=== PATIENT | male | born 1935 | race Caucasian/White ===

== ENCOUNTER 2016-10-24 14:19 | Emergency (ER) | payer MEDICARE, OTHER ==
[~2016-10-24] VITALS: Ht 162.6 cm; Wt 66.8 kg
[2016-10-24 14:20] VITALS: BP 176/103
[2016-10-24] MEDS ORDERED: EZET10TA (14:30)
[2016-10-24] MEDS ORDERED: ZETI10TA30 (14:30)
[2016-10-24] MEDS ORDERED: SIMV20TA2 (14:30)
[2016-10-24] MEDS ORDERED: TRAM50TA2 (14:30)
[2016-10-24] MEDS ORDERED: LOSA100T36 (14:30)
== END 2016-10-24 15:08 | disposition home or self-care (01) ==
LOC: M ED 14:19
DX: G50.1 Atypical facial pain (principal); G89.29 Other chronic pain; K02.9 Dental caries, unspecified; I25.10 Atherosclerotic heart disease of native coronary artery without angina pectoris; I25.2 Old myocardial infarction; I10 Essential (primary) hypertension; Z79.899 Other long term (current) drug therapy; Z88.8 Allergy status to other drugs, medicaments and biological substances

== ENCOUNTER 2019-04-05 10:59 | Inpatient (IN) | payer MEDICARE, OTHER ==
[~2019-04-05] VITALS: Ht 162.6 cm; Wt 65.0 kg
[2019-04-05] VITALS (13 sets, daily range): BP systolic 118–146; BP diastolic 73–82
[~2019-04-05 10:59] MED LIST: EZET10TA21; LOSA100T50 PO; PREG100CA PO; SIMV20TA22; TEGR100T3 PO; TRAM50TA2 PO; ZETI10TA16
[2019-04-05] MEDS ORDERED: ASPIRIN 81 MG CHEW TABLET PO ONE (11:30)
[2019-04-05 11:51] LABS: BASO % 0.3 % (0.0-1.0); EOS # 0.3 10^3/uL (0.0-0.5); EOS % 2.8 % (0.0-3.0); HEMATOCRIT 55.6 % (42.0-52.0); HEMOGLOBIN 18.2 g/dl (13.5-17.5); LYMPH % 18.8 % (24.0-44.0); MEAN CORPUSCULAR HEMOGLOBIN 30.7 pg (27.0-33.0); MEAN CORPUSCULAR HGB CONC 32.7 g/dl (32.0-36.5); MEAN CORPUSCULAR VOLUME 93.9 fl (80.0-96.0); MONO # 0.7 10^3/uL (0.0-0.8); MONO % 6.7 % (0.0-5.0); NEUTROPHILS # 7.5 10^3/uL (1.5-8.5); NEUTROPHILS % 70.7 % (36.0-66.0); PLATELET COUNT, AUTOMATED 268 10^3/uL (150-450); RED BLOOD COUNT 5.92 10^6/uL (4.30-6.10); WHITE BLOOD COUNT 10.6 10^3/uL (4.0-10.0)
[2019-04-05] MEDS ORDERED: NITROGLYCERIN 0.4 MG SUBL TABLET SL PRN (12:00)
[2019-04-05] MEDS ORDERED: niCARdipine IV 40 MG in IV 1 EA IV SCH ×2 (12:00→12:45)
[2019-04-05] MEDS ORDERED: METOPROLOL TART 50 MG TAB PO ONE (12:00)
[2019-04-05] MEDS ORDERED: METOPROLOL 5 MG/5 ML VIAL As Ordered ONE (12:04)
[2019-04-05 12:13] LABS: INR 0.92; PROTHROMBIN TIME 12.1 SECONDS (11.8-14.0)
[2019-04-05 12:14] LABS: PARTIAL THROMBOPLASTIN TIME 28.6 SECONDS (25.0-38.4)
[2019-04-05] MEDS: METOPROLOL 5 MG/5 ML VIAL IV SCH ×3 (12:14→12:27)
[2019-04-05] MEDS ORDERED: NORT10CA2 PO (12:21)
[2019-04-05 12:24] LABS: ALBUMIN 4.3 GM/DL (3.2-5.2); ALT/SGPT 32 U/L (12-78); BILIRUBIN,DIRECT 0.1 MG/DL (0.0-0.2); BILIRUBIN,TOTAL 0.3 MG/DL (0.2-1.0); BLOOD UREA NITROGEN 10 MG/DL (7-18); CARBON DIOXIDE LEVEL 28 MEQ/L (21-32); CHLORIDE LEVEL 99 MEQ/L (98-107); CPK CREATINE PHOSPHOKINASE 67 U/L (39-308); CREATININE FOR GFR 1.33 MG/DL (0.70-1.30); GLOMERULAR FILTRATION RATE 54.8 (>35); GLUCOSE, FASTING 121 MG/DL (70-100); LIPASE 83 U/L (73-393); MB/CK RELATIVE INDEX 2.99 (< OR =4); NT-PRO BNP 74 PG/ML (<450); POTASSIUM SERUM 4.1 MEQ/L (3.5-5.1); SODIUM LEVEL 137 MEQ/L (136-145); TOTAL PROTEIN 9.3 GM/DL (6.4-8.2); TROPONIN I < 0.02 NG/ML (< 0.10)
[2019-04-05] MEDS ORDERED: GI COCKTAIL 50ML BTL(HYOSCYAMINE/MAALOX/LIDOCAINE VISCOUS)(1:3:1) PO ONE (14:45)
[2019-04-05 14:55] LABS: CK-MB VALUE MASS 1.8 NG/ML (<3.6); MB/CK RELATIVE INDEX 2.65 (< OR =4); TROPONIN I 0.09 NG/ML (< 0.10)
[2019-04-05 17:52] LABS: CK-MB VALUE MASS 2.3 NG/ML (<3.6); MB/CK RELATIVE INDEX 3.77 (< OR =4); TROPONIN I 0.11 NG/ML (< 0.10)
[2019-04-05] MEDS ORDERED: ISOVUE-370 76% 100ML VIAL (Q9967) As Ordered ONE (19:03)
[2019-04-05] MEDS ORDERED: traMADol 50 MG TAB PO PRN (19:15)
[2019-04-05] MEDS: PREGABALIN 100 MG CAP (LYRICA) PO SCH (20:31)
[2019-04-05] MEDS: HEPARIN SOD (PORCINE) 5000 UNITS/ML VIAL SC SCH (20:31)
[2019-04-05] MEDS: LOSARTAN 50 MG TAB PO SCH (20:32)
--- NOTE | 2019-04-05 20:35 | REPVR ---
PROCEDURE INFORMATION: Exam: CT Angiography Chest With Contrast Exam date and time: 04/05/2019 7:43 PM Age: 83 years old Clinical indication: Chest pain; Additional info: R/O aortic dissection TECHNIQUE: Imaging protocol: Computed tomographic angiography of the chest with intravenous contrast. 3D rendering: MIP and/or 3D reconstructed images were created by the technologist. Radiation optimization: All CT scans at this facility use at least one of these dose optimization techniques: automated exposure control; mA and/or kV adjustment per patient size (includes targeted exams where dose is matched to clinical indication); or iterative reconstruction. Contrast material: ISOVUE 370; Contrast volume: 75 ml; Contrast route: IV; COMPARISON: CR PORTABLE CHEST X-RAY 04/05/2019 11:34 AM FINDINGS: Pulmonary arteries: There are multiple mediastinal lymph nodes measuring up to 12 mm in the anterior mediastinum adjacent to the main pulmonary artery. Is a most likely postinflammatory although neoplastic etiologies are not absolutely excluded. Aorta: There is fusiform dilatation of the ascending thoracic aorta which measures 3.7 cm. maximally. There is no dissection or saccular component. Lungs: Upper lung zone septal thickening with bilateral subpleural peripheral interstitial infiltrates most pronounced in the left upper lobe, mid and lower lung zones with small foci of honeycombing, findings consistent with interstitial lung disease. Several larger blebs demonstrated in the left lower lobe. Pleural space: Unremarkable. No pneumothorax. No pleural effusion. Heart: There is moderate atherosclerotic calcification of the coronary arteries. Lymph nodes: Unremarkable. No enlarged lymph nodes. Bones/joints: Osteoporosis. Soft tissues: Unremarkable. IMPRESSION: 1. Upper lung zone septal thickening with bilateral subpleural peripheral interstitial infiltrates most pronounced in the left upper lobe, mid and lower lung zones with small foci of honeycombing, findings consistent with interstitial lung disease. 2. There is fusiform dilatation of the ascending thoracic aorta which measures 3.7 cm. maximally. There is no dissection or saccular component. 3. There are multiple mediastinal lymph nodes measuring up to 12 mm in the anterior mediastinum adjacent to the main pulmonary artery. Is a most likely postinflammatory although neoplastic etiologies are not absolutely excluded. Electronically signed by: Dylan Jones On 04/05/2019 20:29:59 PM
[2019-04-05] MEDS ORDERED: NORTRIPTYLINE 10 MG CAP PO SCH (21:00)
[2019-04-05] MEDS ORDERED: NS 1,000 ML IV SCH (21:30)
--- NOTE | 2019-04-05 21:36 | HPEPDOC ---
[facility] Medical History & Physical Date of Admission Apr 05, 2019 Date of Service: Apr 05, 2019 Attending Physician: GRACIE BARGER MD History and Physical CHIEF COMPLAINT: Chest pain HISTORY OF PRESENT ILLNESS: 83-year-old male with past history of hypertension, hyperlipidemia, presents from home with chest pain radiating to his back. He went to [place] and started experiencing sternal/epigastric chest pain, radiation to his back between his shoulder blades, decided to come to the hospital. In the ED, he is found to have significantly elevated blood pressure, unresponsive to his oral medication, started on Cardene drip, with appropriate blood pressure control and improvement in chest pain, upon discontinuation of Cardene drip blood pressure jumped up again with worsening of chest pain, so Cardene drip was continued. Patient is currently comfortable in bed, having minimal chest pain, no associated symptoms. He denies any shortness of breath, nausea, vomiting, palpitations, diarrhea or constipation. 10 point review of system is negative except for above PAST MEDICAL HISTORY: 1. Hypertension. 2. Hyperlipidemia. PAST SURGICAL HISTORY: 1. Cataract surgery. 2. Appendectomy. SOCIAL HISTORY: Never smoker. Denies alcohol. Denies drug use FAMILY HISTORY: No family history of heart disease ALLERGIES: Please see below. HOME MEDICATIONS: Please see below. PHYSICAL EXAMINATION: VITAL SIGNS: Please see below. GENERAL: No distress HEENT: Normocephalic, atraumatic, moist mucous membranes NECK: Supple CARDIOVASCULAR EXAMINATION: S1, S2, no murmurs RESPIRATORY EXAMINATION: Clear to auscultation, no wheezing ABDOMINAL EXAMINATION: Soft, nontender, nondistended, positive bowel sounds EXTREMITIES: Range of motion intact SKIN: No rash NEUROLOGICAL EXAMINATION: Alert and oriented 3, no focal deficits PSYCHIATRIC EXAMINATION: Calm and cooperative LABORATORY DATA: See below. IMAGING: CT and negative for aortic dissection, mediastinal lymphadenopathy noted. MICROBIOLOGY: Please see below. ASSESSMENT: 83-year-old male with past medical history of hypertension, hyperlipidemia, being admitted for hypertensive emergency. PLAN: 1. Hypertensive emergency. BP well-controlled on Cardene drip now, admit to ICU, CTA negative for aortic dissection, continue home losartan. Patient noted to have erythrocytosis, unknown etiology, possible cause of patient's hypertensive emergency, continue IV hydration. DVT prophylaxis: Heparin subcutaneous GI prophylaxis: Protonix Vital Signs Vital Signs Date Time Temp Pulse Resp B/P (MAP) Pulse Ox O2 Delivery O2 Flow Rate FiO2 04/05/19 20:32 146/78 04/05/19 19:50 85 18 96 Room Air 04/05/19 18:15 97.3 Laboratory Data Labs 24H Laboratory Tests 2 04/05/19 11:40: Immature Granulocyte % (Auto) 0.7, Neutrophils (%) (Auto) 70.7H, Lymphocytes (%) (Auto) 18.8L, Monocytes (%) (Auto) 6.7H, Eosinophils (%) (Auto) 2.8, Basophils (%) (Auto) 0.3, Neutrophils # (Auto) 7.5, Lymphocytes # (Auto) 2.0, Monocytes # (Auto) 0.7, Eosinophils # (Auto) 0.3, Basophils # (Auto) 0.0, Nucleated Red Blood Cells % (auto) 0.0, Prothrombin Time 12.1, Prothromb Time International Ratio 0.92, Activated Partial Thromboplast Time 28.6, Anion Gap 10, Glomerular Filtration Rate 54.8, Calcium Level 10.0, Total Bilirubin 0.3, Direct Bilirubin 0.1, Aspartate Amino Transf (AST/SGOT) 30, Alanine Aminotransferase (ALT/SGPT) 32, Alkaline Phosphatase 112, Total Creatine Kinase 67, Creatine Kinase MB 2.0, Creatine Kinase MB Relative Index 2.99, Troponin I < 0.02, DQ-[id number]-Type Natriuretic Peptide 74, Total Protein 9.3H, Albumin 4.3, Albumin/Globulin Ratio 0.86L, Lipase 83, Thyroid Stimulating Hormone (TSH) 1.810 04/05/19 14:09: Total Creatine Kinase 68, Creatine Kinase MB 1.8, Creatine Kinase MB Relative Index 2.65, Troponin I 0.09# 04/05/19 17:06: Total Creatine Kinase 61, Creatine Kinase MB 2.3, Creatine Kinase MB Relative Index 3.77, Troponin I 0.11#H CBC/BMP Laboratory Tests 04/05/19 11:40 Home Medications Scheduled Losartan Potassium (Losartan Potassium) 100 Mg Tab, 100 MG PO DAILY Nortriptyline HCl (Nortriptyline HCl) 10 Mg Capsule, 20 MG PO QHS Pregabalin (Lyrica) 100 Mg Capsule, 100 MG PO TID Scheduled PRN Tramadol HCl (Tramadol HCl) 50 Mg Tab, 50 MG PO Q8H PRN for PAIN Allergies Coded Allergies: gabapentin (Verified Allergy, Unknown, 08/29/18) A-FIB/CHADSVASC A-FIB History Current/History of A-Fib/PAF?: No GRACIE BARGER MD Apr 05, 2019 21:36
[2019-04-05] MEDS: PANTOPRAZOLE 40MG TAB (PROTONIX) PO SCH (22:42)
[2019-04-06] VITALS (12 sets, daily range): BP systolic 131–157; BP diastolic 75–86
[2019-04-06] MEDS: SUCRALFATE 1 GM TAB PO SCH ×2 (02:40→06:41)
[2019-04-06 05:08] LABS: HEMOGLOBIN 16.4 g/dl (13.5-17.5); MEAN CORPUSCULAR HEMOGLOBIN 31.1 pg (27.0-33.0); MEAN CORPUSCULAR HGB CONC 32.8 g/dl (32.0-36.5); MEAN CORPUSCULAR VOLUME 94.9 fl (80.0-96.0); PLATELET COUNT, AUTOMATED 221 10^3/uL (150-450); RED BLOOD COUNT 5.27 10^6/uL (4.30-6.10); WHITE BLOOD COUNT 16.1 10^3/uL (4.0-10.0)
[2019-04-06 05:27] LABS: ALBUMIN 3.3 GM/DL (3.2-5.2); ALT/SGPT 27 U/L (12-78); BILIRUBIN,TOTAL 1.1 MG/DL (0.2-1.0); BLOOD UREA NITROGEN 11 MG/DL (7-18); CALCIUM LEVEL 9.6 MG/DL (8.8-10.2); CARBON DIOXIDE LEVEL 31 MEQ/L (21-32); CHLORIDE LEVEL 100 MEQ/L (98-107); CREATININE FOR GFR 1.22 MG/DL (0.70-1.30); GLOMERULAR FILTRATION RATE > 60.0 (>35); GLUCOSE, FASTING 111 MG/DL (70-100); MAGNESIUM LEVEL 2.3 MG/DL (1.8-2.4); POTASSIUM SERUM 4.2 MEQ/L (3.5-5.1); SODIUM LEVEL 137 MEQ/L (136-145); TOTAL PROTEIN 7.8 GM/DL (6.4-8.2)
[2019-04-06] MEDS ORDERED: PNEUMOCOCCAL VACCINE 0.5ML SYRINGE(90732) PNEUMOVAX 23 IM SCH (06:45)
[2019-04-06] MEDS ORDERED: FLUBLOK(EGG FREE)(QUAD)INFLUENZA VACC 0.5ML SYRINGE (90682)18YRS&OLDER IM SCH (06:45)
--- NOTE | 2019-04-06 08:00 | REP ---
REASON: Chest pain. COMPARISON: 09/03/2014, the latest prior. There is evidence of increased interstitial markings likely secondary to fibrotic changes and accentuated by technique. No acute patchy parenchymal opacities or pleural effusions have developed. The heart is not enlarged and the pleural angles are sharp. The osseous structures are stable and intact. IMPRESSION: Increased interstitial markings likely secondary to chronic changes as described above, however, correlate clinically to rule out the possibility of acute disease superimposed upon chronic changes. Unreviewed
--- NOTE | 2019-04-06 08:30 | ECGEPIP ---
[facility] - ED Test Date: 2019-04-05 Pat Name: SARA CHOW Department: Room: - Gender: Male Factory Process Workers: : 1935 Requested By: Bhanu Patten Order Number: [id number] Reading MD: Bhanu Pugh Measurements Intervals [place] Rate: 95 P: 26 [place]: 172 QRS: -25 QRSD: 98 T: -7 QT: 316 QTc: 398 Interpretive Statements SINUS RHYTHM WITH SINUS ARRHYTHMIA BORDERLINE LEFT AXIS DEVIATION MINIMAL VOLTAGE CRITERIA FOR LVH, CONSIDER NORMAL VARIANT SIMILAR TO 09/03/14 Electronically Signed on 04-06-2019 8:30:13 EST by Bhanu Pugh
--- NOTE | 2019-04-06 08:31 | ECGEPIP ---
[facility] - ED Test Date: 2019-04-05 Pat Name: SARA CHOW Department: Room: - Gender: Male Client Services Representative: gordy : 1935 Requested By: Bhanu Patten Order Number: [id number] Reading MD: Bhanu Pugh Measurements Intervals [place] Rate: 69 P: 18 [place]: 154 QRS: -30 QRSD: 102 T: -11 QT: 400 QTc: 430 Interpretive Statements SINUS RHYTHM BORDERLINE LEFT AXIS DEVIATION MINIMAL VOLTAGE CRITERIA FOR LVH, CONSIDER NORMAL VARIANT SIMILAR TO PRIOR ON SAME DATE Electronically Signed on 04-06-2019 8:31:44 EST by Bhanu Pugh
--- NOTE | 2019-04-06 08:33 | ECGEPIP ---
[facility] - ED Test Date: 2019-04-05 Pat Name: SARA CHOW Department: Room: [place] [address] Gender: Male Activities Assistant: : 1935 Requested By: Bhanu Patten Order Number: [id number] Reading MD: Bhanu Pugh Measurements Intervals [place] Rate: 69 P: 17 [place]: 160 QRS: -32 QRSD: 101 T: -11 QT: 392 QTc: 422 Interpretive Statements SINUS BRADYCARDIA LEFT AXIS DEVIATION MINIMAL VOLTAGE CRITERIA FOR LVH NSTTW ABNORMALITIES SIMILAR TO PRIOR ON SAME DATE Electronically Signed on 04-06-2019 8:33:31 EST by Bhanu Pugh
--- NOTE | 2019-04-06 08:35 | ECGEPIP ---
[facility] - ED Test Date: 2019-04-05 Pat Name: SARA CHOW Department: Room: - Gender: Male Technical Sales Manager: : 1935 Requested By: Bhanu Patten Order Number: [id number] Reading MD: Bhanu Pugh Measurements Intervals [place] Rate: 73 P: 19 [place]: 158 QRS: -31 QRSD: 94 T: -13 QT: 384 QTc: 424 Interpretive Statements SINUS RHYTHM LEFT AXIS DEVIATION PATTERN CONSISTENT WITH PULMONARY DISEASE MINIMAL VOLTAGE CRITERIA FOR LVH, CONSIDER NORMAL VARIANT NSTTW ABNORMALITIES SIMILAR TO PRIOR ON SAME DATE Electronically Signed on 04-06-2019 8:35:52 EST by Bhanu Pugh
[2019-04-06] MEDS: PANTOPRAZOLE 40MG TAB (PROTONIX) PO SCH (08:53)
[2019-04-06] MEDS: HEPARIN SOD (PORCINE) 5000 UNITS/ML VIAL SC SCH (08:53)
[2019-04-06] MEDS: LOSARTAN 50 MG TAB PO SCH (08:53)
[2019-04-06] MEDS: PREGABALIN 100 MG CAP (LYRICA) PO SCH (08:53)
[2019-04-06] MEDS ORDERED: METOPROLOL SUCC *XL* 25MG TAB (TopROL *XL*) PO SCH (09:00)
[2019-04-06] MEDS ORDERED: METO1TAB32 PO ×2 (10:19→19:52)
[2019-04-06] MEDS ORDERED: PNEUMOCOCCAL VACCINE 0.5ML SYRINGE(90732) PNEUMOVAX 23 IM ONE (11:00)
--- NOTE | 2019-04-06 21:22 | DS.PDOC ---
Discharge Summary General Date of Admission Apr 05, 2019 at 19:04 Date of Discharge 04/06/19 Attending Physician: GRACIE BARGER MD Discharge Summary PROCEDURES PERFORMED DURING STAY: [None]. ADMITTING DIAGNOSES: 1. Hypertensive emergency DISCHARGE DIAGNOSES: 1. Hypertensive emergency COMPLICATIONS/CHIEF COMPLAINT: Chronic Facial Pain, Htn,Hld,Hypertensive Emergency. HISTORY OF PRESENT ILLNESS: 66 y.o male w/ PMH of HTN & HLD was admitted for hypertensive emergency. He presented with severely elevated BP and mid- sternal/epigastric pain. He was treated w/ Cardene drip, monitored in the ICU setting along with PPI & Carafate with complete resolution of symptoms. Patient evaluated in the morning, asymptomatic, having minimal epigastric pain with adequate blood pressure control. Cardene drip has been off for >12 hours with appropriate control in BP, SBP ranging from 140-150 as was the intention; did not want tight BP control. He was evaluated by physical therapy, passed home safety eval without difficulty. He is clinically and hemodynamically stable for discharge with outpatient follow up. Patient's family is at bedside, all questions answered, patient is advised to follow up w/ Pulmonary based on his CT findings. HOSPITAL COURSE: As above] DISCHARGE MEDICATIONS: Please see below. ALLERGIES: Please see below. PHYSICAL EXAMINATION: VITAL SIGNS: Please see below. GENERAL: No distress HEENT: Normocephalic, atraumatic, moist mucous membranes NECK: Supple CARDIOVASCULAR EXAMINATION: S1, S2, no murmurs RESPIRATORY EXAMINATION: Clear to auscultation, no wheezing ABDOMINAL EXAMINATION: Soft, nontender, nondistended, positive bowel sounds EXTREMITIES: Range of motion intact SKIN: No rash NEUROLOGICAL EXAMINATION: Alert and oriented 3, no focal deficits PSYCHIATRIC EXAMINATION: Calm and cooperative LABORATORY DATA: Please see below. PROGNOSIS: Fair ACTIVITY: As tolerated DIET: Cardiac DISCHARGE PLAN: Follow up w/ Pulmonary & PCP in 1-2 weeks DISPOSITION: 01 Home, Self-Care. DISCHARGE INSTRUCTIONS: 1. As above DISCHARGE CONDITION: Stable TIME SPENT ON DISCHARGE: Greater than 32 minutes. Vital Signs/I&Os Vital Signs Date Time Temp Pulse Resp B/P (MAP) Pulse Ox O2 Delivery O2 Flow Rate FiO2 04/06/19 10:54 88 149/80 04/06/19 10:45 18 Room Air 04/06/19 08:00 98.7 98 I&O- Last 24 Hours up to 6 AM 12/23/19 05:59 Intake Total 460 ml Output Total 850 ml Balance -390 ml Laboratory Data Labs 24H Laboratory Tests 2 04/06/19 04:28: Nucleated Red Blood Cells % (auto) 0.0, Anion Gap 6L, Glomerular Filtration Rate > 60.0, Calcium Level 9.6, Magnesium Level 2.3, Total Bilirubin 1.1#H, Aspartate Amino Transf (AST/SGOT) 24, Alanine Aminotransferase (ALT/SGPT) 27, Alkaline P hosphatase 92, Total Protein 7.8, Albumin 3.3#, Albumin/Globulin Ratio 0.73L CBC/BMP Laboratory Tests 04/06/19 04:28 Discharge Medications Scheduled Losartan Potassium (Losartan Potassium) 100 Mg Tab, 100 MG PO DAILY, (Reported) Metoprolol Succinate (Metoprolol Succinate) 25 Mg Tab.er.24h, 25 MG PO DAILY, (Reported) Nortriptyline HCl (Nortriptyline HCl) 10 Mg Capsule, 20 MG PO QHS, (Reported) Pregabalin (Lyrica) 100 Mg Capsule, 100 MG PO TID, (Reported) Scheduled PRN Tramadol HCl (Tramadol HCl) 50 Mg Tab, 50 MG PO Q8H PRN for PAIN, (Reported) Allergies Coded Allergies: gabapentin (Verified Allergy, Unknown, 08/29/18) GRACIE BARGER MD Apr 06, 2019 21:22
--- NOTE | 2019-04-07 12:51 | ECHO ---
DATE OF PROCEDURE: 04/06/2019 REFERRING PHYSICIAN: Dr. Jenkins INDICATION: Chest pain. HEIGHT: 163 cm. WEIGHT: 64 kg. DIMENSIONS: IVS 1.1 LV 3.9 LVPW 1.1 LA 3.3 Aorta 3.4 RV 4.1 Mitral E wave velocity 65, A wave 84 E prime septal 3.7 E prime lateral 10.3 FINDINGS This study is of acceptable technical quality. The patient is in sinus rhythm. Left ventricle is normal size and systolic function, estimated EF is around 60-65%, computer calculated EF was 61%, which seems believable. Right ventricle is normal size and systolic function as well. Both atria appear normal. All four cardiac valves were reasonably well seen and appear normal. No pericardial effusion is noted. Inferior vena cava was not visualized. Aortic root is normal. Aortic arch and abdominal aorta were not well seen. Doppler interrogation of aortic valve reveals no stenosis and trace insufficiency. There is no significant mitral valvular disease. Trace tricuspid and pulmonic insufficiency are seen. Calculated pulmonary artery pressure is within normal limits. Mitral inflow pattern and tissue Doppler imaging of mitral annulus reveals grade 1 diastolic dysfunction. CONCLUSIONS: 1. Study is of acceptable technical quality, the patient is in sinus rhythm. 2. Normal LV size and systolic function, grade 1 diastolic dysfunction. 3. No hemodynamically significant valvular disease. 4. Unable to estimate central venous pressure, but likely normal pulmonary artery pressure. COMMENTS: SBE prophylaxis is not recommended. No obvious findings to explain chest pain.
== END 2019-04-06 11:42 | disposition home or self-care (01) | DRG 305 ==
LOC: M ED 10:59 → M ED INP 19:04 → M ICU 20:13
PROVIDERS: ADMIT Internal Medicine; ATTEND Internal Medicine
DX: I16.1 Hypertensive emergency (principal); I10 Essential (primary) hypertension; E78.5 Hyperlipidemia, unspecified; Z98.49 Cataract extraction status, unspecified eye; Z90.49 Acquired absence of other specified parts of digestive tract; Z79.899 Other long term (current) drug therapy; Z88.8 Allergy status to other drugs, medicaments and biological substances

== ENCOUNTER 2019-04-06 17:47 | Inpatient (IN) | payer MEDICARE, OTHER ==
[~2019-04-06] VITALS: Ht 162.6 cm; Wt 67.7 kg
[~2019-04-06 17:47] MED LIST changes: +METO1TAB32 PO; +NORT10CA2 PO
--- NOTE | 2019-04-06 18:39 | REP ---
Clinical: Chest pain. Comparison: 04/05/2019. Findings: Mediastinum and cardiac silhouette stable. There is chronic interstitial changes again noted with superimposed left lower lobe infiltrates. No obvious effusion. No pneumothorax. Skeletal structures stable. Impression: Superimposed left lower lobe infiltrates suspected. Electronically Signed by Gurvinder Velázquez MD 04/06/2019 06:31 P
--- NOTE | 2019-04-06 18:56 | REPVR ---
PROCEDURE INFORMATION: Exam: CT Head Without Contrast Exam date and time: 04/06/2019 6:09 PM Age: 83 years old Clinical indication: Weakness, extremity; Additional info: CVA - nursing interventions must not delay CT TECHNIQUE: Imaging protocol: Computed tomography of the head without contrast. Radiation optimization: All CT scans at this facility use at least one of these dose optimization techniques: automated exposure control; mA and/or kV adjustment per patient size (includes targeted exams where dose is matched to clinical indication); or iterative reconstruction. COMPARISON: MRI-Brain without Contrast 08/06/2014 6:16 PM FINDINGS: Brain: No intracranial mass, focal mass effect or midline shift. No acute intracranial hemorrhage. Multiple decreased attenuation in periventricular/centrum semiovale white matter. No focal effacement of cortical sulci to indicate acute cortical infarct. Ventricles: Prominent ventricles and CSF spaces suggest parenchymal volume loss. Bones/joints: No calvarial fracture or destructive process. Sinuses: Visualized paranasal sinuses are unremarkable. Mastoid air cells: Mastoid air cells are normally aerated. Orbits: Visualized globes and orbits are unremarkable. Soft tissues: No focal extracranial soft tissue swelling. IMPRESSION: 1. No acute intracranial abnormality. 2. Atrophy and chronic microangiopathic change in supratentorial white matter. Electronically signed by: Nikunj Smith On 04/06/2019 18:56:31 PM
[2019-04-06] MEDS ORDERED: ISOVUE-370 76% 100ML VIAL (Q9967) As Ordered ONE (19:06)
--- NOTE | 2019-04-06 19:47 | REPVR ---
PROCEDURE INFORMATION: Exam: CT Angiography Neck With Contrast Exam date and time: 04/06/2019 7:05 PM Age: 83 years old Clinical indication: Other: CVA; Additional info: CVA - right sided wkness TECHNIQUE: Imaging protocol: Computed tomography angiography of the neck with intravenous contrast. 3D rendering: MIP and/or 3D reconstructed images were created by the technologist. Radiation optimization: All CT scans at this facility use at least one of these dose optimization techniques: automated exposure control; mA and/or kV adjustment per patient size (includes targeted exams where dose is matched to clinical indication); or iterative reconstruction. Contrast material: ISOVUE 380; Contrast volume: 100 ml; Contrast route: IV COMPARISON: No relevant prior studies available. FINDINGS: Right common carotid, cervical ICA and proximal ECA demonstrate contrast opacification with no occlusion, flow limiting stenosis, or intimal flap to suggest dissection. No concerning luminal irregularity to suggest vasculitis. Right carotid bulb demonstrates minimal calcified atherosclerotic plaque with no hemodynamic effect Left common carotid, cervical ICA and proximal ECA demonstrate contrast opacification, with no occlusion, flow limiting stenosis, or intimal flap to suggest dissection. No concerning luminal irregularity to suggest vasculitis. Vertebral arteries demonstrate normal course to the level of the skull base and show no occlusion, flow limiting stenosis or dissection. No flow limiting stenosis or anomaly of the great vessel origins. No concerning neck soft tissue asymmetry. Mediastinal lymphadenopathy was described in the chest CT report yesterday as was pulmonary fibrosis. Multi-level cervical degenerative disc and articular pillar arthropathy is present. IMPRESSION: Minimal calcified atherosclerotic plaque of the right carotid bulb. No concerning vascular lesion, stenosis or occlusive disease. CAROTID STENOSIS REFERENCE USING NASCET CRITERIA: % ICA stenosis = (1 - narrowest ICA diameter/diameter of distal cervical ICA) x 100. Mild - <50% stenosis. Moderate - 50-69% stenosis. Severe - 70-94% stenosis. Near occlusion - 95-99% stenosis. Occluded - 100% stenosis. Electronically signed by: Nikunj Smith On 04/06/2019 19:47:11 PM
--- NOTE | 2019-04-06 19:50 | REPVR ---
PROCEDURE INFORMATION: Exam: CT Angiography Head With Contrast Exam date and time: 04/06/2019 7:05 PM Age: 83 years old Clinical indication: Other: CVA; Additional info: CVA - nursing interventions must not delay CT TECHNIQUE: Imaging protocol: Computed tomography angiography of the head with intravenous contrast. 3D rendering: MIP and/or 3D reconstructed images were created by the technologist. Radiation optimization: All CT scans at this facility use at least one of these dose optimization techniques: automated exposure control; mA and/or kV adjustment per patient size (includes targeted exams where dose is matched to clinical indication); or iterative reconstruction. Contrast material: ISOVUE 370; Contrast volume: 100 ml; Contrast route: IV COMPARISON: CT Head without contrast 04/06/2019 6:07 PM FINDINGS: Ventricles, cisterns and sulci are symmetrically prominent. Moderate decreased attenuation in periventricular/centrum semiovale white matter. No intracranial mass or focal mass effect. No intracranial hemorrhage, midline shift or acute territorial infarct. Anterior circulation: Normal contrast opacification and luminal caliber in the petrous, cavernous and supraclinoid internal carotid arteries. Normal appearance of the anterior cerebral artery branches and middle cerebral artery branches through the MCA trifurcations. No occlusion, high-grade focal stenosis or dissection. No aneurysm. Posterior circulation: Mild atherosclerotic plaque distal left vertebral artery with milder than 50% luminal caliber narrowing abnormal enhancement distally. Right vertebral artery distally is patent. Normal caliber, tortuous basilar artery, and normal superior cerebellar and posterior cerebral arteries. No occlusion, high-grade stenosis or aneurysm. Dural sinuses appear patent. Bony structures show no acute fracture or destructive process. IMPRESSION: Unremarkable CT Angiogram of the head and [place] of [place]. No intracranial large vessel lesion Electronically signed by: Nikunj Smith On 04/06/2019 19:49:48 PM
[2019-04-06 19:52] LABS: BASO % 0.2 % (0.0-1.0); EOS # 0.1 10^3/uL (0.0-0.5); EOS % 0.6 % (0.0-3.0); HEMATOCRIT 48.5 % (42.0-52.0); LYMPH # 1.9 10^3/uL (1.5-5.0); LYMPH % 10.6 % (24.0-44.0); MEAN CORPUSCULAR HEMOGLOBIN 31.1 pg (27.0-33.0); MEAN CORPUSCULAR VOLUME 94.2 fl (80.0-96.0); MONO # 1.7 10^3/uL (0.0-0.8); MONO % 9.5 % (0.0-5.0); NEUTROPHILS # 14.1 10^3/uL (1.5-8.5); NEUTROPHILS % 78.4 % (36.0-66.0); PLATELET COUNT, AUTOMATED 215 10^3/uL (150-450); RED BLOOD COUNT 5.15 10^6/uL (4.30-6.10)
[2019-04-06] MEDS ORDERED: METO1TAB32 PO (19:52)
--- NOTE | 2019-04-06 19:52 | REPVR ---
PROCEDURE INFORMATION: Exam: CT Abdomen And Pelvis With Contrast Exam date and time: 04/06/2019 7:05 PM Age: 83 years old Clinical indication: Other: RT side weak; Additional info: CVA - right sided wkness TECHNIQUE: Imaging protocol: Computed tomography of the abdomen and pelvis with intravenous contrast. Radiation optimization: All CT scans at this facility use at least one of these dose optimization techniques: automated exposure control; mA and/or kV adjustment per patient size (includes targeted exams where dose is matched to clinical indication); or iterative reconstruction. Contrast material: ISOVUE 370; Contrast volume: 100 ml; Contrast route: IV; COMPARISON: CT ABD PELVIS W/O CONTRAST 09/01/2014 11:39 AM FINDINGS: Lungs: Particular pulmonary fibrosis at the lung bases, progressive since the prior CT from 2014. No focal infiltrate or mass. Liver: Liver appears normal with no focal abnormality. Gallbladder and bile ducts: Gallbladder is distended. No calcified stone or obvious duct dilatation. Pancreas: Pancreas appears normal. No focal mass or peripancreatic inflammation. Spleen: Spleen appears homogeneous without focal mass. Adrenals: Adrenal glands are normal in appearance. Kidneys and ureters: Kidneys appear normal, with no stone, solid mass or hydronephrosis. Stomach and bowel: No evidence of small bowel obstruction. No evidence of acute diverticulitis. Appendix: Appendix is not seen. No RLQ inflammation to suggest appendicitis. Intraperitoneal space: No pneumoperitoneum. Vasculature: Atherosclerotic change present in the aorta, without aneurysm. Main portal and splenic veins enhance normally. Lymph nodes: No enlarged lymph nodes. Bladder: Urinary bladder appears normal. Reproductive: Dystrophic prostate calcifications are noted. Bones/joints: Bony structures show no acute fracture or destructive process. Soft tissues: Unremarkable. IMPRESSION: 1. Distention of the gallbladder with mild adjacent edema but no stone or duct dilatation. Consider sonography or HIDA scan if there is concern for acute cholecystitis. 2. No other evidence of an acute or concerning focal abnormality Electronically signed by: Nikunj Smith On 04/06/2019 19:52:41 PM
[2019-04-06 20:03] LABS: INR 1.07; PROTHROMBIN TIME 13.6 SECONDS (11.8-14.0)
[2019-04-06 20:04] LABS: PARTIAL THROMBOPLASTIN TIME 34.7 SECONDS (25.0-38.4)
--- NOTE | 2019-04-06 20:10 | ECGEPIP ---
[facility] - ED Test Date: 2019-04-06 Pat Name: SARA CHOW Department: Room: - Gender: Male On Call Pharmacy Technician: : 1935 Requested By: Nic Phelps Order Number: [id number] Reading MD: Bhanu Pugh Measurements Intervals [place] Rate: 80 P: 5 [place]: 150 QRS: -30 QRSD: 92 T: -11 QT: 358 QTc: 415 Interpretive Statements SINUS RHYTHM LEFT AXIS DEVIATION NSTTW ABNORMALITIES SIMILAR TO 04/05/19 Electronically Signed on 04-06-2019 20:09:56 EST by Bhanu Pugh
[2019-04-06] MEDS ORDERED: PIPERACILLIN/TAZOBACTAM SOD 3.375 GM in D5W MINI-BAG PLUS 50 ML IV ONE (20:15)
[2019-04-06 20:20] LABS: ALBUMIN 3.3 GM/DL (3.2-5.2); ALT/SGPT 29 U/L (12-78); BILIRUBIN,DIRECT 0.2 MG/DL (0.0-0.2); BILIRUBIN,TOTAL 1.2 MG/DL (0.2-1.0); CK-MB VALUE MASS < 1.0 NG/ML (<3.6); CPK CREATINE PHOSPHOKINASE 90 U/L (39-308); LIPASE 70 U/L (73-393); MB/CK RELATIVE INDEX 1.11 (< OR =4); TOTAL PROTEIN 7.3 GM/DL (6.4-8.2); TROPONIN I < 0.02 NG/ML (< 0.10)
[2019-04-06 20:35] LABS: BILIRUBIN,DIRECT 0.2 MG/DL (0.0-0.2); BILIRUBIN,TOTAL 1.1 MG/DL (0.2-1.0); TOTAL PROTEIN 6.7 GM/DL (6.4-8.2)
[2019-04-06] MEDS ORDERED: ASPIRIN 81 MG CHEW TABLET PO ONE (21:30)
[2019-04-06] MEDS ORDERED: ACETAMINOPHEN TAB 650MG DOSE (2X325MG) PO PRN (21:30)
--- NOTE | 2019-04-06 21:34 | REPVR ---
PROCEDURE INFORMATION: Exam: US Abdomen Limited, Right Upper Quadrant Exam date and time: 04/06/2019 9:09 PM Age: 83 years old Clinical indication: Pain and abnormal findings; Abnormal radiologic finding of the abdomen; Radiologic exam and body structure: CT abd/pel; Abdominal pain; Acute; Additional info: Ruq pain TECHNIQUE: Imaging protocol: Real-time ultrasound of the abdomen with image documentation. Examination was focused on the right upper quadrant. COMPARISON: CT ABD/PEL W/IV CONTRAST ONLY 04/06/2019 6:55 PM FINDINGS: Pancreas is not visualized but appeared unremarkable on CT.. Liver is homogeneous in echotexture, with no focal lesion. Gallbladder is distended measuring 11.3 x 5.5 by 6.5 cm. Echogenic sludge is present within the gallbladder lumen. Gallbladder wall measures 7 mm. Pericholecystic fluid is present. No shadowing stone. Common bile duct measures 4 mm in diameter. Right kidney measures 11.2 cm in long axis. Right kidney appears normal. No free fluid. IMPRESSION: Distended gallbladder with intraluminal sludge, mild gallbladder wall thickening and pericholecystic edema or fluid. Findings certainly may represent early cholecystitis change. Electronically signed by: Nikunj Smith On 04/06/2019 21:34:38 PM
[2019-04-06 22:10] VITALS: BP 117/66
--- NOTE | 2019-04-06 22:46 | REPVR ---
PROCEDURE INFORMATION: Exam: MR Head Without Contrast Exam date and time: 04/06/2019 10:26 PM Age: 83 years old Clinical indication: Screening exam; Patient HX: PT states ruq pain, PT states no neuro symptoms. Provider states PT had a moment of slurred speach; Additional info: CVA TECHNIQUE: Imaging protocol: MR of the head without contrast. COMPARISON: MRI-Brain without Contrast 08/06/2014 6:16 PM FINDINGS: No abnormal restriction of diffusion to indicate acute CVA. Midline structures and cerebellar tonsillar position appear normal. Ventricles, cisterns and sulci are symmetrically prominent. No intracranial mass, midline shift or abnormal extra-axial fluid. No acute intracranial hemorrhage. Punctate left thalamic foci of hemosiderin deposition Mild pattern of increased T2 and flair signal in supratentorial white matter. Optic chiasm and pituitary infundibulum appear normal. Normal vascular flow voids in major intracranial arteries and dural venous sinuses. Paranasal sinuses are clear. Mastoid air cells are normally aerated. Optic globes and orbits are unremarkable. IMPRESSION: No acute intracranial abnormality. Mild atrophy and chronic microangiopathic supratentorial white matter changes Electronically signed by: Nikunj Smith On 04/06/2019 22:45:51 PM
[2019-04-06] MEDS: HEPARIN SOD (PORCINE) 5000 UNITS/ML VIAL SC SCH (23:52)
[2019-04-06] MEDS: PREGABALIN 100 MG CAP (LYRICA) PO SCH (23:52)
[2019-04-06] MEDS: NS 1,000 ML IV SCH (23:53)
[2019-04-06] MEDS: DOXYCYCLINE HYCLATE 100 MG in D5W MINI-BAG PLUS 100 ML IV SCH (23:53)
--- NOTE | 2019-04-06 23:56 | REPVR ---
PROCEDURE INFORMATION: Exam: CT Chest Without Contrast Exam date and time: 04/06/2019 10:36 PM Age: 83 years old Clinical indication: Other: Infiltrate; Additional info: Worsening left infiltrate on chest x-ray TECHNIQUE: Imaging protocol: Computed tomography of the chest without contrast. 3D rendering: MIP and/or 3D reconstructed images were created by the technologist. Radiation optimization: All CT scans at this facility use at least one of these dose optimization techniques: automated exposure control; mA and/or kV adjustment per patient size (includes targeted exams where dose is matched to clinical indication); or iterative reconstruction. COMPARISON: CT ANGIO CHEST 04/05/2019 7:40 PM FINDINGS: Limited study without IV contrast. Mediastinal lymphadenopathy is unchanged since the CT yesterday. Thoracic aorta shows ectasia without focal aneurysm . No pleural effusion or pneumothorax. No evidence of pulmonary edema. Reticular interstitial fibrosis, left basilar bullous changes, and subpleural honeycomb fibrosis, with unchanged pattern since the prior CT. No new airspace filling process or consolidation. Gallbladder distention, as seen on the CT earlier today, concerning for cholecystitis IMPRESSION: No interval change since the prior CT yesterday. No developing pneumonia or pulmonary edema. Interstitial fibrosis, with similar pattern compared to the prior CT, and unchanged mediastinal lymphadenopathy Electronically signed by: Nikunj Smith On 04/06/2019 23:55:27 PM
[2019-04-06] MEDS: NORTRIPTYLINE 10 MG CAP PO SCH (23:57)
--- NOTE | 2019-04-07 02:17 | HPEPDOC ---
[facility] Medical History & Physical Date of Admission Apr 06, 2019 Date of Service: Apr 06, 2019 Attending Physician: TIA MATUTE DO History and Physical CHIEF COMPLAINT: Generalized weakness, slurred speech, RUQ abdominal pain HISTORY OF PRESENT ILLNESS: Patient is an 83 year old male who presented to the [facility] Emergency department with a complaint of generalized weakness, slurred speech, and RUQ abdominal pain. The patient was recently hospitalized and discharged yesterday 04/05/2019 for abdominal pain. The patient originally presented with a complaint of abdominal pain radiating to his back. The patient was having hypertensive urgency/emergency and was placed on a gayatri ardipine drip to relive abdominal pain/chest pain. The patient had received a chest CT angio at the time as there was concern for possible aortic dissection. His CT imaging demonstrated upper lung zone septal thickening with bilateral subpleural peripheral interstitial infiltrated most pronounce in the left upper lobe, mid and lower lung zones with a small area of honeycombing. After discharge from the hospital, the patients family had stated that they noticed that he was slurring his speech. They also noticed that he appeared to be weak. Over the course of the following day the patients family had stated that the patient became very weak and was unable to ambulate. They also stated that he had slurring in his speech. Additionally, it was noticed that the patient was confused more than his baseline. The patient subsequently presented to the ER. At the [facility] ER the patient was found to be vitally stable. He did have an elevation of his WBC of 18.0. The patient stated that he had RUQ pain which has been present since his last admission. He stated that the pain was no worse then it was previously. He denied any nausea or vomiting. He states that the pain is constant and radiated to his shoulder blades. He denies any association of the pain with eating. Regarding the patients episode of weakness and slurred speech, he received a CT head, Neck CTA, CT head angiography, all of which were negative for any acute processes. Additionally, the patient recieved an abdomen/pelvis CT and gallbladder ultrasound which demonstrated distended gallbladder with intraluminal sludge and mild gallbladder wall thickening and pericholecystic edema possibly consistent with early cholecystitis. Lastly the patient received a chest x-ray as he has stated he had a cough for the past few days. His chest x-ray revealed a worsening left lower lobe infiltrate. Hospitalist service was then consulted for further evaluation and management of the patient PAST MEDICAL HISTORY: 1. Hypertension 2. Hyperlipidemia PAST SURGICAL HISTORY: 1. Cataract Surgery 2. Appendectomy SOCIAL HISTORY: Patient denies history of tobacco abuse. He denies alcohol use or illicit or IV drug use FAMILY HISTORY: Patient denies any significant family history of heart disease ALLERGIES: Please see below. REVIEW OF SYSTEMS: CONSTITUTIONAL: Denies fevers, chills, unintentional weight loss or weight gain. Denies night sweats HEENT: Denies difficulty swallowing or choking. Denies pain on swallowing. Denies lymphadenopathy CARDIOVASCULAR: Denies chest pain. Denies palpitations or feelings of the heart racing RESPIRATORY: Denies shortness of breath. Admits to cough with green sputum production. Denies congestion. Denies wheezing GASTROINTESTINAL: Denies abdominal pain, nausea, vomiting, diarrhea or constipa tion GENITOURINARY: Denies dysuria, increased frequency or urgency SKIN: Denies any rashes or lesions MUSCULOSKELETAL: Admits to feeling of muscle weakness NEUROLOGICAL: Admits to slurred speech. Admits to previous inability to ambulate PSYCHIATRIC: Denies depression or anxiety ENDOCRINE: Denies heat intolerance or cold intolerance HEMATOLOGIC/LYMPHATIC: Denies easy bruising or bleeding HOME MEDICATIONS: Please see below. PHYSICAL EXAMINATION: VITAL SIGNS: Temperature 98.4, pulse 76, respiratory rate 18, blood pressure 105/56, pulse oximetry 96% on room air. GENERAL APPEARANCE: Patient is awake, alert, and oriented. He does not appear to be in any acute distress. He is lying comfortably in bed. He is accompanied by his family HEENT: Atraumatic, normocephalic. Eyes are nonicteric. Trachea is midline. Dentition is poor. No palpable cervical, axillary, or supraclavicular lymphade nopathy CARDIOVASCULAR: Normal S1, S2. Regular rate and rhythm. No clicks, rubs or murmurs LUNGS: Diminished lung sounds in the bases. Coarse crackles in the bases. No dullness to percussion. Symmetric chest expansion and good respiratory effort. No wheezes or rhonchi ABDOMEN: Soft, nondistended. Tenderness in upper right quadrant. No rebound tenderness or guarding. No hernias or abdominal masses. No rashes or areas of bruising. Normoactive bowel sounds MUSCULOSKELETAL: 5/5 upper and lower extremity testing bilaterally EXTREMITIES: No edema. 2+ posterior tibial and radial pulses bilaterally NEUROLOGICAL: No focal neurological deficits. No facial asymmetry. CN II-XII are grossly intact. Normal cerebellar testing PSYCHIATRIC: Mood and affect appear appropriate for situation LABORATORY DATA: See below. IMAGING: PROCEDURE INFORMATION: Exam: CT Head Without Contrast Exam date and time: 04/06/2019 6:09 PM Age: 83 years old Clinical indication: Weakness, extremity; Additional info: CVA - nursing interventions must not delay CT TECHNIQUE: Imaging protocol: Computed tomography of the head without contrast. Radiation optimization: All CT scans at this facility use at least one of these dose optimization techniques: automated exposure control; mA and/or kV adjustment per patient size (includes targeted exams where dose is matched to clinical indication); or iterative reconstruction. COMPARISON: MRI-Brain without Contrast 08/06/2014 6:16 PM FINDINGS: Brain: No intracranial mass, focal mass effect or midline shift. No acute intracranial hemorrhage. Multiple decreased attenuation in periventricular/centrum semiovale white matter. No focal effacement of cortical sulci to indicate acute cortical infarct. Ventricles: Prominent ventricles and CSF spaces suggest parenchymal volume loss. Bones/joints: No calvarial fracture or destructive process. Sinuses: Visualized paranasal sinuses are unremarkable. Mastoid air cells: Mastoid air cells are normally aerated. Orbits: Visualized globes and orbits are unremarkable. Soft tissues: No focal extracranial soft tissue swelling. IMPRESSION: 1. No acute intracranial abnormality. 2. Atrophy and chronic microangiopathic change in supratentorial white matter. Electronically signed by: Nikunj Smith On 04/06/2019 18:56:31 PM Clinical: Chest pain. Comparison: 04/05/2019. Findings: Mediastinum and cardiac silhouette stable. There is chronic interstitial changes again noted with superimposed left lower lobe infiltrates. No obvious effusion. No pneumothorax. Skeletal structures stable. Impression: Superimposed left lower lobe infiltrates suspected. Electronically Signed by Gurvinder Velázquez MD 04/06/2019 06:31 P PROCEDURE INFORMATION: Exam: CT Angiography Neck With Contrast Exam date and time: 04/06/2019 7:05 PM Age: 83 years old Clinical indication: Other: CVA; Additional info: CVA - right sided wkness TECHNIQUE: Imaging protocol: Computed tomography angiography of the neck with intravenous contrast. 3D rendering: MIP and/or 3D reconstructed images were created by the technologist. Radiation optimization: All CT scans at this facility use at least one of these dose optimization techniques: automated exposure control; mA and/or kV adjustment per patient size (includes targeted exams where dose is matched to clinical indication); or iterative reconstruction. Contrast material: ISOVUE 380; Contrast volume: 100 ml; Contrast route: IV COMPARISON: No relevant prior studies available. FINDINGS: Right common carotid, cervical ICA and proximal ECA demonstrate contrast opacification with no occlusion, flow limiting stenosis, or intimal flap to suggest dissection. No concerning luminal irregularity to suggest vasculitis. Right carotid bulb demonstrates minimal calcified atherosclerotic plaque with no hemodynamic effect Left common carotid, cervical ICA and proximal ECA demonstrate contrast opacification, with no occlusion, flow limiting stenosis, or intimal flap to suggest dissection. No concerning luminal irregularity to suggest vasculitis. Vertebral arteries demonstrate normal course to the level of the skull base and show no occlusion, flow limiting stenosis or dissection. No flow limiting stenosis or anomaly of the great vessel origins. No concerning neck soft tissue asymmetry. Mediastinal lymphadenopathy was described in the chest CT report yesterday as was pulmonary fibrosis. Multi-level cervical degenerative disc and articular pillar arthropathy is present. IMPRESSION: Minimal calcified atherosclerotic plaque of the right carotid bulb. No concerning vascular lesion, stenosis or occlusive disease. CAROTID STENOSIS REFERENCE USING NASCET CRITERIA: % ICA stenosis = (1 - narrowest ICA diameter/diameter of distal cervical ICA) x 100. Mild - <50% stenosis. Moderate - 50-69% stenosis. Severe - 70-94% stenosis. Near occlusion - 95-99% stenosis. Occluded - 100% stenosis. Electronically signed by: Nikunj Smith On 04/06/2019 19:47:11 PM PROCEDURE INFORMATION: Exam: CT Angiography Head With Contrast Exam date and time: 04/06/2019 7:05 PM Age: 83 years old Clinical indication: Other: CVA; Additional info: CVA - nursing interventions must not delay CT TECHNIQUE: Imaging protocol: Computed tomography angiography of the head with intravenous contrast. 3D rendering: MIP and/or 3D reconstructed images were created by the technologist. Radiation optimization: All CT scans at this facility use at least one of these dose optimization techniques: automated exposure control; mA and/or kV adjustment per patient size (includes targeted exams where dose is matched to clinical indication); or iterative reconstruction. Contrast material: ISOVUE 370; Contrast volume: 100 ml; Contrast route: IV COMPARISON: CT Head without contrast 04/06/2019 6:07 PM FINDINGS: Ventricles, cisterns and sulci are symmetrically prominent. Moderate decreased attenuation in periventricular/centrum semiovale white matter. No intracranial mass or focal mass effect. No intracranial hemorrhage, midline shift or acute territorial infarct. Anterior circulation: Normal contrast opacification and luminal caliber in the petrous, cavernous and supraclinoid internal carotid arteries. Normal appearance of the anterior cerebral artery branches and middle cerebral artery branches through the MCA trifurcations. No occlusion, high-grade focal stenosis or dissection. No aneurysm. Posterior circulation: Mild atherosclerotic plaque distal left vertebral artery with milder than 50% luminal caliber narrowing abnormal enhancement distally. Right vertebral artery distally is patent. Normal caliber, tortuous basilar artery, and normal superior cerebellar and posterior cerebral arteries. No occlusion, high-grade stenosis or aneurysm. Dural sinuses appear patent. Bony structures show no acute fracture or destructive process. IMPRESSION: Unremarkable CT Angiogram of the head and [place]. No intracranial large vessel lesion Electronically signed by: Nikunj Smith On 04/06/2019 19:49:48 PM PROCEDURE INFORMATION: Exam: CT Abdomen And Pelvis With Contrast Exam date and time: 04/06/2019 7:05 PM Age: 83 years old Clinical indication: Other: RT side weak; Additional info: CVA - right sided wkness TECHNIQUE: Imaging protocol: Computed tomography of the abdomen and pelvis with intravenous contrast. Radiation optimization: All CT scans at this facility use at least one of these dose optimization techniques: automated exposure control; mA and/or kV adjustment per patient size (includes targeted exams where dose is matched to clinical indication); or iterative reconstruction. Contrast material: ISOVUE 370; Contrast volume: 100 ml; Contrast route: IV; COMPARISON: CT ABD PELVIS W/O CONTRAST 09/01/2014 11:39 AM FINDINGS: Lungs: Particular pulmonary fibrosis at the lung bases, progressive since the prior CT from 2014. No focal infiltrate or mass. Liver: Liver appears normal with no focal abnormality. Gallbladder and bile ducts: Gallbladder is distended. No calcified stone or obvious duct dilatation. Pancreas: Pancreas appears normal. No focal mass or peripancreatic inflammation. Spleen: Spleen appears homogeneous without focal mass. Adrenals: Adrenal glands are normal in appearance. Kidneys and ureters: Kidneys appear normal, with no stone, solid mass or hydronephrosis. Stomach and bowel: No evidence of small bowel obstruction. No evidence of acute diverticulitis. Appendix: Appendix is not seen. No RLQ inflammation to suggest appendicitis. Intraperitoneal space: No pneumoperitoneum. Vasculature: Atherosclerotic change present in the aorta, without aneurysm. Main portal and splenic veins enhance normally. Lymph nodes: No enlarged lymph nodes. Bladder: Urinary bladder appears normal. Reproductive: Dystrophic prostate calcifications are noted. Bones/joints: Bony structures show no acute fracture or destructive process. Soft tissues: Unremarkable. IMPRESSION: 1. Distention of the gallbladder with mild adjacent edema but no stone or duct dilatation. Consider sonography or HIDA scan if there is concern for acute cholecystitis. 2. No other evidence of an acute or concerning focal abnormality Electronically signed by: Nikunj Smith On 04/06/2019 19:52:41 PM PROCEDURE INFORMATION: Exam: US Abdomen Limited, Right Upper Quadrant Exam date and time: 04/06/2019 9:09 PM Age: 83 years old Clinical indication: Pain and abnormal findings; Abnormal radiologic finding of the abdomen; Radiologic exam and body structure: CT abd/pel; Abdominal pain; Acute; Additional info: Ruq pain TECHNIQUE: Imaging protocol: Real-time ultrasound of the abdomen with image documentation. Examination was focused on the right upper quadrant. COMPARISON: CT ABD/PEL W/IV CONTRAST ONLY 04/06/2019 6:55 PM FINDINGS: Pancreas is not visualized but appeared unremarkable on CT.. Liver is homogeneous in echotexture, with no focal lesion. Gallbladder is distended measuring 11.3 x 5.5 by 6.5 cm. Echogenic sludge is present within the gallbladder lumen. Gallbladder wall measures 7 mm. Pericholecystic fluid is present. No shadowing stone. Common bile duct measures 4 mm in diameter. Right kidney measures 11.2 cm in long axis. Right kidney appears normal. No free fluid. IMPRESSION: Distended gallbladder with intraluminal sludge, mild gallbladder wall thickening and pericholecystic edema or fluid. Findings certainly may represent early cholecystitis change. Electronically signed by: Nikunj Smith On 04/06/2019 21:34:38 PM PROCEDURE INFORMATION: Exam: MR Head Without Contrast Exam date and time: 04/06/2019 10:26 PM Age: 83 years old Clinical indication: Screening exam; Patient HX: PT states ruq pain, PT states no neuro symptoms. Provider states PT had a moment of slurred speach; Additional info: CVA TECHNIQUE: Imaging protocol: MR of the head without contrast. COMPARISON: MRI-Brain without Contrast 08/06/2014 6:16 PM FINDINGS: No abnormal restriction of diffusion to indicate acute CVA. Midline structures and cerebellar tonsillar position appear normal. Ventricles, cisterns and sulci are symmetrically prominent. No intracranial mass, midline shift or abnormal extra-axial fluid. No acute intracranial hemorrhage. Punctate left thalamic foci of hemosiderin deposition Mild pattern of increased T2 and flair signal in supratentorial white matter. Optic chiasm and pituitary infundibulum appear normal. Normal vascular flow voids in major intracranial arteries and dural venous sinuses. Paranasal sinuses are clear. Mastoid air cells are normally aerated. Optic globes and orbits are unremarkable. IMPRESSION: No acute intracranial abnormality. Mild atrophy and chronic microangiopathic supratentorial white matter changes Electronically signed by: Nikunj Smith On 04/06/2019 22:45:51 PM MICROBIOLOGY: Please see below. ASSESSMENT: Patient is an 83 year old male who presented to the [facility] ER with complaint of generalized weakness, slurring of speech, RUQ pain, and cough with sputum production. . PLAN: 1. Generalized weakness w/ dysarthria -Patient and patients family members had noted the patient to be more weak than his baseline. This was accompanied by a slurring of speech. Neurological examination is benign. -CT imaging of the head and CT angiogram of the neck and head were negative for any acute findings. Brain MRI demonstrated no significant findings. -Cannot r/o TIA. Patient will be placed on aspirin and atorvastatin -PT/OT evaluation and treatment PRN 2. Right upper quadrant abdominal pain -Patient has right upper quadrant abdominal pain. He has a leukocytosis as well. Abdominal imaging including CT abdomen and pelvis and ultrasonography demonstrated gallbladder inflammation suggesting possible early cholecystitis/biliary colic -Patient will be given Zosyn. -Clear liquids diet -Consider surgical consult vs surgical follow-up pending improvement with IV antibiotics -HIDA scan in AM 3. Left lower Lobe infiltrate -Patient has a left lower lobe infiltrate that appears to have worsened compared to previous chest x-ray imaging. -Repeat Chest CT to discern whether there is a true infiltrate -Continue IV Zosyn and Doxycycline -Procalcitonin pending 4. Sepsis 2/2 cholecystitis vs left lobe infiltrate -Patient has a leukocytosis. He has two sources of infection including possible left lower lobe infiltrate and cholecystitis. Currently he is vitally stable although he is on a betablocker which may mask tachycardia in the setting of sepsis. -Will continue with IV antibiotics treatment -Will give patient IVF as he appears dry. -Will continue to monitor WBC -Lactic Acid of 2.2. This has corrected with IVF 5. Lactic Acidosis -Patient has a slight lactic acidosis of 2.2. This corrected with IVF. 6. Abnormal Lung CT. -Patient previously had a Chest CTA which demonstrated upper lung zone septal thickening with bilateral subpleural peripheral interstitial infiltrates most pronounced in the left upper lobe, mid and lower lung zones with small area of honeycombing as well as multiple mediastinal lymph nodes measuring up to 12mm in the anterior mediastinum adjacent to the main pulmonary artery. -Patients findings may be consistent with a pulmonary fibrosis/interstitial lung disease. -Patient was previously referred to Pulmonary Medicine for follow-up 7. Hypertension -Currently stable. Will continue home medications 8. Trigeminal Neuralgia -Continue Nortriptyline -Continue Lyrica Vital Signs Vital Signs Date Time Temp Pulse Resp B/P (MAP) Pulse Ox O2 Delivery O2 Flow Rate FiO2 04/06/19 21:30 98.4 76 105/56 (72) 96 Room Air 04/06/19 21:00 18 Laboratory Data Labs 24H Laboratory Tests 2 04/06/19 18:36: Lactic Acid Level 2.2*H 04/06/19 18:40: Immature Granulocyte % (Auto) 0.7, Neutrophils (%) (Auto) 78.4H, Lymphocytes (%) (Auto) 10.6L, Monocytes (%) (Auto) 9.5H, Eosinophils (%) (Auto) 0.6, Basophils (%) (Auto) 0.2, Neutrophils # (Auto) 14.1H, Lymphocytes # (Auto) 1.9, Monocytes # (Auto) 1.7H, Eosinophils # (Auto) 0.1, Basophils # (Auto) 0.0, Nucleated Red Blood Cells % (auto) 0.0, Prothrombin Time 13.6, Prothromb Time International Ratio 1.07, Activated Partial Thromboplast Time 34.7, Total Bilirubin 1.1H, Direct Bilirubin 0.2, Aspartate Amino Transf (AST/SGOT) 23, Alanine Aminotransferase (ALT/SGPT) 21, Alkaline Phosphatase 79, Total Creatine Kinase 90, Creatine Kinase MB < 1.0, Creatine Kinase MB Relative Index 1.11, Troponin I < 0.02#, Total Protein 6.7, Albumin 3.0L, Albumin/Globulin Ratio 0.81L, Lipase 65L 04/06/19 18:47: POC Glucose (Misc Panel) 129H, POC Sodium (Misc Panel) 133L, POC Potassium (Misc Panel) 5.2H, POC Chloride (Misc Panel) 100, POC Total CO2 (Misc Panel) 28.0H, P OC Blood Urea Nitrogen (Misc Panel 19, POC Ionized Calcium (Misc Panel) 4.7, POC Creatinine (Misc Panel) 1.2, POC Hematocrit (Misc Panel) 51.0 04/06/19 18:48: Bedside Glucose (Misc Panel) 125H 04/06/19 18:50: Bedside Prothrombin Time INR 1.4, Prothrombin Time (MISC) 16.2H CBC/BMP Laboratory Tests 04/06/19 18:40 Microbiology Microbiology 04/06/19 Blood Culture, Received Pending 04/06/19 Blood Culture, Received Pending Home Medications Scheduled Losartan Potassium (Losartan Potassium) 100 Mg Tab, 100 MG PO DAILY Metoprolol Succinate (Metoprolol Succinate) 25 Mg Tab.er.24h, 25 MG PO DAILY Nortriptyline HCl (Nortriptyline HCl) 10 Mg Capsule, 20 MG PO QHS Pregabalin (Lyrica) 100 Mg Capsule, 100 MG PO TID Scheduled PRN Tramadol HCl (Tramadol HCl) 50 Mg Tab, 50 MG PO Q8H PRN for PAIN Allergies Coded Allergies: gabapentin (Verified Allergy, Unknown, 08/29/18) A-FIB/CHADSVASC A-FIB History Current/History of A-Fib/PAF?: No GARY LAWRENCE DO Apr 07, 2019 00:01
[2019-04-07 06:00] VITALS: BP 116/70
[2019-04-07] MEDS: NS 1,000 ML IV SCH ×2 (06:05→09:43)
[2019-04-07 07:05] LABS: HEMOGLOBIN 14.1 g/dl (13.5-17.5); MEAN CORPUSCULAR HEMOGLOBIN 30.5 pg (27.0-33.0); MEAN CORPUSCULAR HGB CONC 31.3 g/dl (32.0-36.5); MEAN CORPUSCULAR VOLUME 97.2 fl (80.0-96.0); PLATELET COUNT, AUTOMATED 172 10^3/uL (150-450); RED BLOOD COUNT 4.63 10^6/uL (4.30-6.10)
[2019-04-07 07:31] LABS: ALBUMIN 2.7 GM/DL (3.2-5.2); BILIRUBIN,TOTAL 1.1 MG/DL (0.2-1.0); CALCIUM LEVEL 8.8 MG/DL (8.8-10.2); CREATININE FOR GFR 1.35 MG/DL (0.70-1.30); GLOMERULAR FILTRATION RATE 53.9 (>35); MAGNESIUM LEVEL 2.3 MG/DL (1.8-2.4); POTASSIUM SERUM 3.8 MEQ/L (3.5-5.1); TOTAL PROTEIN 6.8 GM/DL (6.4-8.2)
[2019-04-07 09:42] VITALS: BP 122/75
[2019-04-07] MEDS: DOXYCYCLINE HYCLATE 100 MG in D5W MINI-BAG PLUS 100 ML IV SCH (09:43)
[2019-04-07] MEDS: HEPARIN SOD (PORCINE) 5000 UNITS/ML VIAL SC SCH ×2 (09:43→21:06)
[2019-04-07] MEDS: LOSARTAN 50 MG TAB PO SCH (09:44)
[2019-04-07] MEDS: METOPROLOL SUCC *XL* 25MG TAB (TopROL *XL*) PO SCH (09:44)
[2019-04-07] MEDS: PREGABALIN 100 MG CAP (LYRICA) PO SCH ×3 (09:44→21:06)
[2019-04-07] MEDS: ATORVASTATIN 20 MG TAB PO SCH (09:44)
[2019-04-07] MEDS: MORPHINE 2 MG/ML 1ML VIAL (J2270) IV PRN ×2 (13:06→21:05)
--- NOTE | 2019-04-07 13:24 | IPNPDOC ---
Date Seen The patient was seen on 04/07/19. Progress Note SUBJECTIVE: Patient was seen and examined today sitting up in a chair. He states he continues to have intermittent right upper quadrant pain that feels like a sharp stabbing pain. He did have a clear liquid breakfast this morning and tolerated this well without any nausea or vomiting. He denies any association with his pain and eating. He denies any chest pain, cough, sputum production, weakness, or diarrhea. He does still note some difficultly with speech. OBJECTIVE: PHYSICAL EXAMINATION: VITAL SIGNS: Please see below. GENERAL: Alert, comfortable, in no acute distress HEENT: Normocephalic, atraumatic, PERRLA, EOMI, moist mucous membranes NECK: Supple, trachea midline, no lymphadenopathy, no JVD CARDIOVASCULAR: Regular rate and rhythm, normal S1 and S2. No murmurs, rubs, or gallops RESPIRATORY: Clear to auscultation bilaterally with equal air entry bilaterally. No wheezing, rhonchi, or rales. ABDOMEN: Tender to light palpation in the RUQ and LUQ. Nontender in the lower quadrants. Bowel sounds present. EXTREMITIES: No cyanosis or edema. Pulses 2+/4 in bilateral upper and lower extremities SKIN: [place], warm, dry NEUROLOGIC: Alert and oriented 3 to person, place and time. Cranial nerves 2-12 grossly intact. No focal deficits appreciated PSYCHIATRIC: Mood and affect appropriate LABORATORY DATA, IMAGING STUDIES, MICROBIOLOGY: Please see below. ASSESSMENT/PLAN: Patient is an 83 year old male who presented to the [facility] ER with complaint of generalized weakness, slurring of speech, RUQ pain. # RUQ pain 2/2 acute cholecystitis -Ultrasonography demonstrated gallbladder inflammation suggesting possible early cholecystitis/biliary colic -IV antibiotics treatment with Zosyn day #1 of 7 -Clear liquids diet -General surgery consulted, appreciate their input and recommendations # Generalized weakness w/ dysarthria -Patient and patients family members had noted the patient to be more weak than his baseline and new onset slurring of speech. -Neurological examination is benign. -CT imaging of the head and CT angiogram of the neck and head were negative for any acute findings. Brain MRI demonstrated no significant findings. -Cannot r/o TIA. Continue aspirin and atorvastatin -PT/OT/ST evaluation and treatment # Left lower Lobe infiltrate -Patient has a left lower lobe infiltrate that appears to have worsened compared to previous chest x-ray imaging. -Repeat Chest CT did not reveal a clear infiltrate -IV antibiotics treatment as above -Procalcitonin pending # Sepsis 2/2 cholecystitis vs left lobe infiltrate -Presented with leukocytosis and lactic acidosis, s/p IVF hydration -two sources of infection including acute cholecystitis possible left lower lobe infiltrate. -Will continue with IV antibiotics treatment with Zosyn day #1 of 7 # Lactic Acidosis -Patient has a slight lactic acidosis of 2.2 -Resolved with IVF # Abnormal Lung CT -Previously had a Chest CTA which demonstrated upper lung zone septal thickening with bilateral subpleural peripheral interstitial infiltrates most pronounced in the left upper lobe, mid and lower lung zones with small area of honeycombing as well as multiple mediastinal lymph nodes measuring up to 12mm in the anterior mediastinum adjacent to the main pulmonary artery. -Findings may be consistent with a pulmonary fibrosis/interstitial lung disease. -Previously referred to Pulmonary Medicine for follow-up # Hypertension -Stable, continue home medications # Trigeminal Neuralgia -Continue Nortriptyline -Continue Lyrica DISPOSITION: pending clinical improvement, possible surgical intervention ATTENDING NOTE I have personally evaluated and examined the patient. Discussed with resident/student regarding plan of care and agree with the above assessment and plan. VS, I&O, 24H, Fishbone Vital Signs/I&O Vital Signs Date Time Temp Pulse Resp B/P (MAP) Pulse Ox O2 Delivery O2 Flow Rate FiO2 04/07/19 09:44 102 122/75 04/07/19 06:00 96.9 18 95 04/06/19 22:10 Room Air I&O- Last 24 Hours up to 6 AM 04/07/19 06:00 Intake Total 760 ml Output Total 300 ml Balance 460 ml Laboratory Data 24H LABS Laboratory Tests 2 04/06/19 18:36: Lactic Acid Level 2.2*H 04/06/19 18:40: Immature Granulocyte % (Auto) 0.7, Neutrophils (%) (Auto) 78.4H, Lymphocytes (%) (Auto) 10.6L, Monocytes (%) (Auto) 9.5H, Eosinophils (%) (Auto) 0.6, Basophils (%) (Auto) 0.2, Neutrophils # (Auto) 14.1H, Lymphocytes # (Auto) 1.9, Monocytes # (Auto) 1.7H, Eosinophils # (Auto) 0.1, Basophils # (Auto) 0.0, Nucleated Red Blood Cells % (auto) 0.0, Prothrombin Time 13.6, Prothromb Time International Ratio 1.07, Activated Partial Thromboplast Time 34.7, Total Bilirubin 1.1H, Direct Bilirubin 0.2, Aspartate Amino Transf (AST/SGOT) 23, Alanine Aminotransferase (ALT/SGPT) 21, Alkaline Phosphatase 79, Total Creatine Kinase 90, Creatine Kinase MB < 1.0, Creatine Kinase MB Relative Index 1.11, Troponin I < 0.02#, Total Protein 6.7, Albumin 3.0L, Albumin/Globulin Ratio 0.81L, Lipase 65L 04/06/19 18:47: POC Glucose (Misc Panel) 129H, POC Sodium (Misc Panel) 133L, POC Potassium (Misc Panel) 5.2H, POC Chloride (Misc Panel) 100, POC Total CO2 (Misc Panel) 28.0H, POC Blood Urea Nitrogen (Misc Panel 19, POC Ionized Calcium (Misc Panel) 4.7, POC Creatinine (Misc Panel) 1.2, POC Hematocrit (Misc Panel) 51.0 04/06/19 18:48: Bedside Glucose (Misc Panel) 125H 04/06/19 18:50: Bedside Prothrombin Time INR 1.4, Prothrombin Time (MISC) 16.2H 04/07/19 00:13: Lactic Acid Followup at 4 Hours 0.9 04/07/19 05:44: Nucleated Red Blood Cells % (auto) 0.0, Anion Gap 7L, Glomerular Filtration Rate 53.9, Calcium Level 8.8, Magnesium Level 2.3, Total Bilirubin 1.1H, Aspartate Amino Transf (AST/SGOT) 16, Alanine Aminotransferase (ALT/SGPT) 17, Alkaline Phosphatase 72, Total Protein 6.8, Albumin 2.7L, Albumin/Globulin Ratio 0.66L CBC/BMP Laboratory Tests 04/06/19 18:40 04/07/19 05:44 Microbiology Microbiology 04/06/19 Blood Culture, Received Pending 04/06/19 Blood Culture, Received Pending LARRY PRECIADO D.O. Apr 07, 2019 12:23 VERNON BASURTO MD Apr 07, 2019 14:27
[2019-04-07 14:00] VITALS: BP 130/75
[2019-04-07] MEDS: PIPERACILLIN/TAZOBACTAM SOD 3.375 GM in D5W MINI-BAG PLUS 50 ML IV SCH ×2 (14:17→21:01)
[2019-04-07] MEDS: ASPIRIN 81 MG ENTERIC TAB PO SCH (14:17)
[2019-04-07] MEDS: NORTRIPTYLINE 10 MG CAP PO SCH (21:06)
[2019-04-07 22:00] VITALS: BP 142/70
[2019-04-08] MEDS: PIPERACILLIN/TAZOBACTAM SOD 3.375 GM in D5W MINI-BAG PLUS 50 ML IV SCH ×4 (02:06→20:07)
[2019-04-08 06:00] VITALS: BP 120/74
[2019-04-08 07:28] LABS: HEMOGLOBIN 14.1 g/dl (13.5-17.5); MEAN CORPUSCULAR HEMOGLOBIN 30.4 pg (27.0-33.0); MEAN CORPUSCULAR VOLUME 94.8 fl (80.0-96.0); PLATELET COUNT, AUTOMATED 171 10^3/uL (150-450); RED BLOOD COUNT 4.64 10^6/uL (4.30-6.10); WHITE BLOOD COUNT 10.2 10^3/uL (4.0-10.0)
[2019-04-08] MEDS: METOPROLOL SUCC *XL* 25MG TAB (TopROL *XL*) PO SCH (07:40)
[2019-04-08] MEDS: HEPARIN SOD (PORCINE) 5000 UNITS/ML VIAL SC SCH ×2 (07:40→20:07)
[2019-04-08] MEDS: ASPIRIN 81 MG ENTERIC TAB PO SCH (07:40)
[2019-04-08] MEDS: LOSARTAN 50 MG TAB PO SCH ×2 (07:41→07:44)
[2019-04-08] MEDS: ATORVASTATIN 20 MG TAB PO SCH (07:41)
[2019-04-08] MEDS: PREGABALIN 100 MG CAP (LYRICA) PO SCH ×3 (07:41→20:06)
[2019-04-08 07:55] LABS: BLOOD UREA NITROGEN 11 MG/DL (7-18); CALCIUM LEVEL 8.5 MG/DL (8.8-10.2); CARBON DIOXIDE LEVEL 24 MEQ/L (21-32); CHLORIDE LEVEL 105 MEQ/L (98-107); CREATININE FOR GFR 1.21 MG/DL (0.70-1.30); GLOMERULAR FILTRATION RATE > 60.0 (>35); GLUCOSE, FASTING 92 MG/DL (70-100); SODIUM LEVEL 137 MEQ/L (136-145)
--- NOTE | 2019-04-08 09:49 | IPNPDOC ---
Date Seen The patient was seen on 04/08/19. Progress Note SUBJECTIVE: Patient was seen and examined today laying in bed. He states his abdominal pain has improved and he only feels the pain if he coughs now. He continues to tolerate a clear liquid diet and denies any nausea or vomiting. He states overall he feels much better than yesterday. OBJECTIVE: PHYSICAL EXAMINATION: VITAL SIGNS: Please see below. GENERAL: Alert, comfortable, in no acute distress HEENT: Normocephalic, atraumatic, moist mucous membranes CARDIOVASCULAR: Regular rate and rhythm, normal S1 and S2. No murmurs, rubs, or gallops RESPIRATORY: Clear to auscultation bilaterally with equal air entry bilaterally. No wheezing, rhonchi, or rales. ABDOMEN: Tender to deep palpation in the RUQ. Nontender in all other quadrants. Bowel sounds present. EXTREMITIES: No cyanosis or edema. Pulses 2+/4 in bilateral upper and lower extremities SKIN: erythematous rash on the lateral aspect of the left upper arm NEUROLOGIC: Alert and oriented 3 to person, place and time. No focal deficits appreciated PSYCHIATRIC: Mood and affect appropriate LABORATORY DATA, IMAGING STUDIES, MICROBIOLOGY: Please see below. ASSESSMENT/PLAN: Patient is an 83 year old male who presented to the [facility] ER with complaint of generalized weakness, slurring of speech, RUQ pain. # RUQ pain 2/2 acute cholecystitis -Ultrasonography demonstrated gallbladder inflammation suggesting possible early cholecystitis/biliary colic -IV antibiotics treatment with Zosyn day #2 of 7 -Clear liquids diet -General surgery consulted, appreciate their input and recommendations -possible inpatient surgical intervention if not improving, otherwise f/u for outpatient surgery # Generalized weakness w/ dysarthria -Patient and patients family members had noted the patient to be more weak than his baseline and new onset slurring of speech. -Neurological examination is benign. -CT imaging of the head and CT angiogram of the neck and head were negative for any acute findings. Brain MRI demonstrated no significant findings. -Cannot r/o TIA. Continue aspirin and atorvastatin -PT/OT/ST evaluation and treatment # Question left lower lobe infiltrate -Repeat Chest CT did not reveal a clear infiltrate -pt denies any symptoms -Procalcitonin negative. -No clear evidence of pneumonia at this time # Sepsis 2/2 cholecystitis -Presented with leukocytosis and lactic acidosis, s/p IVF hydration -Will continue with antibiotics as above # Lactic Acidosis -Patient has a slight lactic acidosis of 2.2 -Resolved with IVF # Abnormal Lung CT -Previously had a Chest CTA which demonstrated upper lung zone septal thickening with bilateral subpleural peripheral interstitial infiltrates most pronounced in the left upper lobe, mid and lower lung zones with small area of honeycombing as well as multiple mediastinal lymph nodes measuring up to 12mm in the anterior mediastinum adjacent to the main pulmonary artery. -Findings may be consistent with a pulmonary fibrosis/interstitial lung disease. -Previously referred to Pulmonary Medicine for follow-up # Hypertension -Stable, continue home medications # Trigeminal Neuralgia -Continue Nortriptyline -Continue Lyrica DISPOSITION: pending clinical improvement, possible surgical intervention ATTENDING NOTE I have personally evaluated and examined the patient. Discussed with resident/student regarding plan of care and agree with the above assessment and plan. VS, I&O, 24H, Fishbone Vital Signs/I&O Vital Signs Date Time Temp Pulse Resp B/P (MAP) Pulse Ox O2 Delivery O2 Flow Rate FiO2 04/08/19 07:44 106/68 04/08/19 07:40 89 04/08/19 06:00 98.9 20 93 04/07/19 21:15 Room Air I&O- Last 24 Hours up to 6 AM 04/08/19 06:00 Intake Total 1820 ml Output Total 1150 ml Balance 670 ml Laboratory Data 24H LABS Laboratory Tests 2 04/08/19 07:12: Nucleated Red Blood Cells % (auto) 0.0, Anion Gap 8, Glomerular Filtration Rate > 60.0, Calcium Level 8.5L CBC/BMP Laboratory Tests 04/08/19 07:12 Microbiology Microbiology 04/06/19 Blood Culture - Preliminary, Resulted No growth after 24 hours . All specim... 04/06/19 Blood Culture - Preliminary, Resulted No growth after 24 hours . All specim... LARRY PRECIADO D.O. Apr 08, 2019 09:49 VERNON BASURTO MD Apr 08, 2019 10:41
[2019-04-08] MEDS: HYDROCORTISONE 2.5% 20GM OINTMENT TOP SCH ×2 (11:17→20:07)
[2019-04-08 14:00] VITALS: BP 100/65
[2019-04-08] MEDS: NORTRIPTYLINE 10 MG CAP PO SCH (20:06)
[2019-04-08 22:00] VITALS: BP 122/63
[2019-04-09] MEDS: PIPERACILLIN/TAZOBACTAM SOD 3.375 GM in D5W MINI-BAG PLUS 50 ML IV SCH ×2 (02:49→08:30)
[2019-04-09 06:00] VITALS: BP 137/66
[2019-04-09 06:11] LABS: HEMATOCRIT 40.5 % (42.0-52.0); HEMOGLOBIN 13.4 g/dl (13.5-17.5); MEAN CORPUSCULAR HEMOGLOBIN 30.9 pg (27.0-33.0); MEAN CORPUSCULAR HGB CONC 33.1 g/dl (32.0-36.5); MEAN CORPUSCULAR VOLUME 93.3 fl (80.0-96.0); PLATELET COUNT, AUTOMATED 181 10^3/uL (150-450); RED BLOOD COUNT 4.34 10^6/uL (4.30-6.10); WHITE BLOOD COUNT 8.1 10^3/uL (4.0-10.0)
[2019-04-09 06:29] LABS: CALCIUM LEVEL 8.9 MG/DL (8.8-10.2); CREATININE FOR GFR 1.39 MG/DL (0.70-1.30); GLOMERULAR FILTRATION RATE 52.1 (>35); POTASSIUM SERUM 3.8 MEQ/L (3.5-5.1)
[2019-04-09] MEDS: ATORVASTATIN 20 MG TAB PO SCH (08:30)
[2019-04-09] MEDS: PREGABALIN 100 MG CAP (LYRICA) PO SCH (08:30)
[2019-04-09] MEDS: HEPARIN SOD (PORCINE) 5000 UNITS/ML VIAL SC SCH (08:30)
[2019-04-09] MEDS: ASPIRIN 81 MG ENTERIC TAB PO SCH (08:30)
[2019-04-09 08:31] VITALS: BP 124/74
[2019-04-09] MEDS: LOSARTAN 50 MG TAB PO SCH (08:31)
[2019-04-09] MEDS: HYDROCORTISONE 2.5% 20GM OINTMENT TOP SCH (08:31)
[2019-04-09] MEDS: METOPROLOL SUCC *XL* 25MG TAB (TopROL *XL*) PO SCH (08:31)
[2019-04-09] MEDS ORDERED: AMOX500T2 PO (09:13)
--- NOTE | 2019-04-09 10:00 | DS.PDOC ---
Discharge Summary General Date of Admission Apr 06, 2019 at 21:21 Date of Discharge 04/09/2019 Attending Physician: VERNON BASURTO MD Discharge Summary PROCEDURES PERFORMED DURING STAY: None. ADMITTING DIAGNOSES: 1. Generalized weakness with dysarthria. 2. Right upper quadrant abdominal pain. 3. Possible left lower lobe infiltrate. 4. Sepsis with Lactic acidosis. 5. Abnormal lung CT 6. Hypertension. 7. Trigeminal neuralgia DISCHARGE DIAGNOSES: 1. Generalized weakness with dysarthria. 2. Acute cholecystitis 3. Sepsis with Lactic acidosis, resolved 4. Abnormal lung CT 5. Hypertension. 6. Trigeminal neuralgia COMPLICATIONS/CHIEF COMPLAINT: Abdominal Pain. HISTORY OF PRESENT ILLNESS: 83 year old male who presented to the [facility] Emergency department with a complaint of generalized weakness, slurred speech, and RUQ abdominal pain. The patient was recently hospitalized and discharged yesterday 04/05/2019 for abdominal pain. The patient originally presented with a complaint of abdominal pain radiating to his back. The patient was having hypertensive urgency/emergency and was placed on a nicardipine drip to relive abdominal pain/chest pain. The patient had received a chest CT angio at the time as there was concern for possible aortic dissection. His CT imaging demonstrated upper lung zone septal thickening with bilateral subpleural peripheral interstitial infiltrated most pronounce in the left upper lobe, mid and lower lung zones with a small area of honeycombing. After discharge from the hospital, the patients family had stated that they noticed that he was slurring his speech. They also noticed that he appeared to be weak. Over the course of t he following day the patients family had stated that the patient became very weak and was unable to ambulate. They also stated that he had slurring in his speech. Additionally, it was noticed that the patient was confused more than his baseline. The patient subsequently presented to the ER. At the [facility] ER the patient was found to be vitally stable. He did have an elevation of his WBC of 18.0. The patient stated that he had RUQ pain which has been present since his last admission. He stated that the pain was no worse then it was previously. He denied any nausea or vomiting. He states that the pain is constant and radiated to his shoulder blades. He denies any association of the pain with eating. Regarding the patients episode of weakness and slurred speech, he received a CT head, Neck CTA, CT head angiography, all of which were negative for any acute processes. Additionally, the patient recieved an abdomen/pelvis CT and gallbladder ultrasound which demonstrated distended gallbladder with intraluminal sludge and mild gallbladder wall thickening and pericholecystic edema possibly consistent with early cholecystitis. Lastly the patient received a chest x-ray as he has stated he had a cough for the past few days. His chest x-ray revealed a worsening left lower lobe infiltrate. Hospitalist service was then consulted for further evaluation and management of the patient HOSPITAL COURSE: Patient was admitted to the hospital and started on IV antibiotics for acute cholecystitis and possible pneumonia. CT of the chest was negative for pneumonia, so IV doxycycline was discontinued. Her calcitonin was also checked and was negative. The patient was started on IV fluids for elevated lactic acid and concern for sepsis. His lactic acid subsequently improved. General surgery was consult to for acute cholecystitis. The patient was started on a clear liquid diet, which was tolerated and progressed to a low-fat diet. Over the course of this admission, the patient noted improvement in his right upper quadrant pain. The patient was evaluated by physical therapy and occupational therapy for the reported weakness, and was found to be at his baseline function for return home. The patient was also seen by speech therapy for his reported slurred speech and dysarthria. Speech therapy evaluation felt that his difficulties were related to his pain and seemed to improve when his pain had started to resolve. Based on the patient's overall improvement and ability to tolerate a low-fat diet, general surgery recommends follow-up for outpatient removal of the gallbladder in about 6 weeks. On the day of discharge, the patient was found to be stable and safe for discharge home. DISCHARGE MEDICATIONS: Please see below. ALLERGIES: Please see below. PHYSICAL EXAMINATION ON DISCHARGE: VITAL SIGNS: Please see below. GENERAL: Alert, comfortable, in no acute distress HEENT: Normocephalic, atraumatic, moist mucous membranes CARDIOVASCULAR: Regular rate and rhythm, normal S1 and S2. No murmurs, rubs, or gallops RESPIRATORY: Clear to auscultation bilaterally with equal air entry bilaterally. No wheezing, rhonchi, or rales. ABDOMEN: Tender to deep palpation in the RUQ. Nontender in all other quadrants. Bowel sounds present. EXTREMITIES: No cyanosis or edema. Pulses 2+/4 in bilateral upper and lower extremities SKIN: erythematous rash on the lateral aspect of the left upper arm NEUROLOGIC: Alert and oriented 3 to person, place and time. No focal deficits appreciated PSYCHIATRIC: Mood and affect appropriate LABORATORY DATA: Please see below. IMAGING: (Impressions per radiologist report) - CT Head 04/06: 1. No acute intracranial abnormality. 2. Atrophy and chronic microangiopathic change in supratentorial white matter. - CXR 04/06: Superimposed left lower lobe infiltrates suspected. - CTA neck 04/06: Minimal calcified atherosclerotic plaque of the right carotid bulb. No concerning vascular lesion, stenosis or occlusive disease. - CTA head 04/06: Unremarkable CT Angiogram of the head and [place]. No intracranial large vessel lesion - CT Abdomen/pelvis 04/06: 1. Distention of the gallbladder with mild adjacent edema but no stone or duct dilatation. Consider sonography or HIDA scan if there is concern for acute cholecystitis. 2. No other evidence of an acute or concerning focal abnormality - RUQ US 04/06: Distended gallbladder with intraluminal sludge, mild gallbladder wall thickening and pericholecystic edema or fluid. Findings certainly may represent early cholecystitis change. - MRI head 04/06: No acute intracranial abnormality. Mild atrophy and chronic microangiopathic supratentorial white matter changes - CT chest 04/06: No interval change since the prior CT yesterday. No developing pneumonia or pulmonary edema. Interstitial fibrosis, with similar pattern compared to the prior CT, and unchanged mediastinal lymphadenopathy PROGNOSIS: Fair ACTIVITY: As tolerated. DIET: Low fat diet DISCHARGE PLAN: Home, follow up with general surgery for outpatient procedure DISPOSITION: Home DISCHARGE INSTRUCTIONS: 1. Follow-up with your PCP in 7-10 days 2. Follow up with general surgeon to discuss and schedule outpatient cholecystectomy 3. Please complete the full course of antibiotics 4. You may take Tylenol at home for pain in addition to your regularly prescribed Tramadol at home. 5. If your symptoms return or your condition worsens, please call your PCP or return to the ED for further evaluation. ITEMS TO FOLLOWUP ON ON OUTPATIENT: 1. Acute cholecystitis - f/u general surgery 2. Abnormal lung CT on prior admission - f/u Pulmonary medicine as previously referred DISCHARGE CONDITION: Stable. TIME SPENT ON DISCHARGE: 35 minutes. Vital Signs/I&Os Vital Signs Date Time Temp Pulse Resp B/P (MAP) Pulse Ox O2 Delivery O2 Flow Rate FiO2 04/09/19 08:31 87 04/09/19 08:31 124/74 04/09/19 06:00 98.2 16 98 Room Air I&O- Last 24 Hours up to 6 AM 04/09/19 06:00 Intake Total 1710 ml Output Total 500 ml Balance 1210 ml Laboratory Data Labs 24H Laboratory Tests 2 04/09/19 05:40: Nucleated Red Blood Cells % (auto) 0.0, Anion Gap 7L, Glomerular Filtration Rate 52.1, Calcium Level 8.9 CBC/BMP Laboratory Tests 04/09/19 05:40 Microbiology Microbiology 04/06/19 Blood Culture - Preliminary, Resulted No Growth after 48 hours. All Specime... 04/06/19 Blood Culture - Preliminary, Resulted No Growth after 48 hours. All Specime... Discharge Medications Scheduled Amoxicillin/Potassium Clav (Amox-Clav 500-125 mg Tablet) 1 Each Tablet, 1 TAB PO BID Losartan Potassium (Losartan Potassium) 100 Mg Tab, 100 MG PO DAILY, (Reported) Metoprolol Succinate (Metoprolol Succinate) 25 Mg Tab.er.24h, 25 MG PO DAILY, (Reported) Nortriptyline HCl (Nortriptyline HCl) 10 Mg Capsule, 20 MG PO QHS, (Reported) Pregabalin (Lyrica) 100 Mg Capsule, 100 MG PO TID, (Reported) Scheduled PRN Tramadol HCl (Tramadol HCl) 50 Mg Tab, 50 MG PO Q8H PRN for PAIN, (Reported) Allergies Coded Allergies: gabapentin (Verified Allergy, Unknown, 08/29/18) ATTENDING NOTE I have personally evaluated and examined the patient. Discussed with resident/student regarding plan of care and agree with the above assessment and plan. LARRY PRECIADO D.O. Apr 09, 2019 10:00 VERNON BASURTO MD Apr 09, 2019 13:01
== END 2019-04-09 11:45 | disposition home health service (06) | DRG 872 ==
LOC: M ED 17:47 → M ED INP 21:21 → M MSPAV 22:50
PROVIDERS: ADMIT Internal Medicine; ATTEND Student in an Organized Health Care Education/Training Program
DX: A41.9 Sepsis, unspecified organism (principal); E87.2 Acidosis; K81.0 Acute cholecystitis; R91.8 Other nonspecific abnormal finding of lung field; I10 Essential (primary) hypertension; G50.0 Trigeminal neuralgia; R47.1 Dysarthria and anarthria; E78.5 Hyperlipidemia, unspecified; Z79.899 Other long term (current) drug therapy; Z88.8 Allergy status to other drugs, medicaments and biological substances

== ENCOUNTER → 2019-04-17 | Outpatient (REF) | payer MEDICARE, OTHER ==
[~2019-04-17] MED LIST changes: +AMOX500T2 PO
[2019-04-17 15:56] LABS: BASO # 0.1 10^3/uL (0.0-0.2); BASO % 0.7 % (0.0-1.0); EOS # 0.4 10^3/uL (0.0-0.5); EOS % 4.8 % (0.0-3.0); HEMATOCRIT 48.5 % (42.0-52.0); HEMOGLOBIN 14.8 g/dl (13.5-17.5); LYMPH # 2.2 10^3/uL (1.5-5.0); LYMPH % 26.5 % (24.0-44.0); MEAN CORPUSCULAR HEMOGLOBIN 30.1 pg (27.0-33.0); MEAN CORPUSCULAR HGB CONC 30.5 g/dl (32.0-36.5); MEAN CORPUSCULAR VOLUME 98.6 fl (80.0-96.0); MONO # 0.9 10^3/uL (0.0-0.8); MONO % 11.1 % (0.0-5.0); NEUTROPHILS # 4.7 10^3/uL (1.5-8.5); NEUTROPHILS % 56.1 % (36.0-66.0); PLATELET COUNT, AUTOMATED 409 10^3/uL (150-450); RED BLOOD COUNT 4.92 10^6/uL (4.30-6.10); WHITE BLOOD COUNT 8.4 10^3/uL (4.0-10.0)
[2019-04-17 16:18] LABS: ALBUMIN 3.6 GM/DL (3.2-5.2); BILIRUBIN,DIRECT 0.4 MG/DL (0.0-0.2); BILIRUBIN,TOTAL 0.8 MG/DL (0.2-1.0); CALCIUM LEVEL 9.9 MG/DL (8.8-10.2); CREATININE FOR GFR 1.28 MG/DL (0.70-1.30); GLOMERULAR FILTRATION RATE 57.3 (>35); TOTAL PROTEIN 8.6 GM/DL (6.4-8.2)
[2019-04-17 16:23] LABS: ERYTHROCYTE SEDIMENTATION RATE 26 mm/hr (0-20)
[2019-04-17 16:26] LABS: TOTAL 25(OH) VITAMIN D 78.1 NG/ML (30.0-100.0)
[2019-04-21 00:06] LABS: ANCA-ATYPICAL <1:20 titer (Neg:<1:20); ANGIOTENSIN 1 CONVERTING ENZYM 46 U/L (14-82); ANTI DS-DNA AB Negative (Negative); CYTOPLASMIC NEUTROP AB ANCA-C <1:20 titer (Neg:<1:20); PERINUCLEAR AB ANCA-P <1:20 titer (Neg:<1:20); SMITHS ANTIBODY < 0.2 AI (0.0-0.9); SSA SJOGRENS A <0.2 AI (0.0-0.9); SSB SJOGRENS B <0.2 AI (0.0-0.9); VITAMIN D 1,25 DIHYDROXY 27.2 pg/mL (19.9-79.3)
== END ==
LOC: M LABDRAW1 15:12
PROVIDERS: ATTEND Internal Medicine Pulmonary Disease
DX: R91.8 Other nonspecific abnormal finding of lung field (principal)

== ENCOUNTER 2019-05-08 08:12 | Day surgery (SDC) | payer MEDICARE, OTHER ==
[~2019-05-08] VITALS: Ht 162.6 cm; Wt 67.5 kg
[~2019-05-08 08:12] MED LIST changes: +AMPICILLIN SOD/SULBACTAM SOD 3 GM in D5W MINI-BAG PLUS 100 ML IV ONE; +LR 1,000 ML IV ONE
[2019-05-08] MEDS ORDERED: LIDOCAINE 1% SDV INJ 30 ML VIAL As Ordered ONE (09:10)
[2019-05-08] MEDS ORDERED: BUPIVACAINE HCL 0.25% 30 ML VIAL As Ordered ONE (09:10)
[2019-05-08] MEDS ORDERED: SUGAMMADEX SODIUM 500 MG/5 ML VIAL (BRIDION) As Ordered ONE (09:43)
[2019-05-08] MEDS ORDERED: ONDANSETRON 4MG/2ML VIAL (J2405) As Ordered ONE (09:43)
[2019-05-08] MEDS ORDERED: propofoL 200 MG/20 ML VIAL As Ordered ONE (09:43)
[2019-05-08] MEDS ORDERED: ROCURONIUM BROMIDE 50 MG/5 ML VIAL As Ordered ONE (09:43)
[2019-05-08] MEDS ORDERED: fentaNYL 250 MCG/5 ML INJECTION (J3010) As Ordered ONE (09:43)
[2019-05-08] MEDS ORDERED: LIDOCAINE 2% INJ 100 MG/5 ML SDV (FOR ANES.) As Ordered ONE (09:43)
[2019-05-08] MEDS ORDERED: dexameTHASONE 4 MG/ML 1ML VIAL (J1100) As Ordered ONE (09:43)
[2019-05-08] MEDS ORDERED: KETOROLAC 60 MG/2 ML VIAL (J1885) As Ordered ONE (09:43)
[2019-05-08] MEDS ORDERED: ePHEDrine SULFATE 25 MG/5 ML(5MG/ML) SYRINGE As Ordered ONE (09:47)
[2019-05-08] MEDS ORDERED: HYDROMORPHONE HCL 0.5 MG/ 0.5 ML SYRINGE (J1170 PER 1) IV PRN (12:00)
[2019-05-08] MEDS ORDERED: NORCO, ANEXSIA 5/325MG TABLET (HYDROcodone/ACETAMINOPHEN) PO PRN ×2 (12:00→12:45)
[2019-05-08] MEDS ORDERED: fentaNYL 100 MCG/2 ML INJECTION (J3010) IV PRN (12:00)
[2019-05-08] MEDS ORDERED: ONDANSETRON 4MG/2ML VIAL (J2405) IV PRN ×2 (12:00→12:45)
[2019-05-08] MEDS ORDERED: LR 1,000 ML IV SCH (12:00)
[2019-05-08] MEDS ORDERED: KETOROLAC 30 MG/ML VIAL (J1885) IV PRN (12:45)
[2019-05-08 15:25] VITALS: BP 119/84
[2019-05-08] MEDS ORDERED: OXYC1TAB23 PO (17:50)
--- NOTE | 2019-05-10 11:57 | ROOPDOC ---
[facility] Report Of Operation Report of Operation DATE OF PROCEDURE: 05/08/19 PREPROCEDURE DIAGNOSES: history of acute cholecystitis. POSTPROCEDURE DIAGNOSES: chronic cholecystitis. PROCEDURE: Laparoscopic Cholecystectomy. SURGEON: Dashawn Dubois MD FAMILY LIFE EDUCATOR: ANESTHESIA: General Anesthesia. ESTIMATED BLOOD LOSS: Approximately 20 mL. COMPLICATIONS: none. REMARKS: 83 M recently admitted to the hospital with an episode of acute cholecystitis back in end of March, treated with IV antibiotics and improved. Hes brought in today for laparoscopic cholecystectomy. PROCEDURE NOTE: . DESCRIPTION OF PROCEDURE: . DASHAWN DUBOIS MD May 10, 2019 11:57
== END 2019-05-08 16:22 | disposition home or self-care (01) ==
LOC: M SDC 08:12
PROVIDERS: ATTEND Surgery
DX: K81.1 Chronic cholecystitis (principal); I10 Essential (primary) hypertension; E78.5 Hyperlipidemia, unspecified; G47.30 Sleep apnea, unspecified; Z79.899 Other long term (current) drug therapy; Z88.8 Allergy status to other drugs, medicaments and biological substances; Z86.73 Personal history of transient ischemic attack (TIA), and cerebral infarction without residual deficits

== ENCOUNTER 2019-05-08 17:31 | Inpatient (IN) | payer MEDICARE, OTHER ==
[~2019-05-08] VITALS: Ht 162.6 cm; Wt 63.6 kg
[~2019-05-08 17:31] MED LIST changes: -AMPICILLIN SOD/SULBACTAM SOD 3 GM in D5W MINI-BAG PLUS 100 ML IV ONE; -LR 1,000 ML IV ONE
[2019-05-08] MEDS ORDERED: OXYC1TAB23 PO (17:50)
[2019-05-08] MEDS ORDERED: NS 1,000 ML IV ONE (18:15)
[2019-05-08 18:54] LABS: BASO % 0.1 % (0.0-1.0); HEMOGLOBIN 13.8 g/dl (13.5-17.5); LYMPH % 6.3 % (24.0-44.0); MEAN CORPUSCULAR HEMOGLOBIN 30.3 pg (27.0-33.0); MEAN CORPUSCULAR HGB CONC 31.4 g/dl (32.0-36.5); MEAN CORPUSCULAR VOLUME 96.5 fl (80.0-96.0); MONO # 0.7 10^3/uL (0.0-0.8); NEUTROPHILS # 14.7 10^3/uL (1.5-8.5); NEUTROPHILS % 88.9 % (36.0-66.0); PLATELET COUNT, AUTOMATED 225 10^3/uL (150-450); RED BLOOD COUNT 4.56 10^6/uL (4.30-6.10); WHITE BLOOD COUNT 16.5 10^3/uL (4.0-10.0)
[2019-05-08 20:14] LABS: ALBUMIN 3.8 GM/DL (3.2-5.2); ALT/SGPT 48 U/L (12-78); BILIRUBIN,DIRECT 0.2 MG/DL (0.0-0.2); BILIRUBIN,TOTAL 0.7 MG/DL (0.2-1.0); BLOOD UREA NITROGEN 18 MG/DL (7-18); CALCIUM LEVEL 9.3 MG/DL (8.8-10.2); CARBON DIOXIDE LEVEL 25 MEQ/L (21-32); CHLORIDE LEVEL 98 MEQ/L (98-107); CK-MB VALUE MASS 1.8 NG/ML (<3.6); CPK CREATINE PHOSPHOKINASE 119 U/L (39-308); CREATININE FOR GFR 1.68 MG/DL (0.70-1.30); GLOMERULAR FILTRATION RATE 41.9 (>35); GLUCOSE, FASTING 176 MG/DL (70-100); MAGNESIUM LEVEL 1.8 MG/DL (1.8-2.4); MB/CK RELATIVE INDEX 1.51 (< OR =4); POTASSIUM SERUM 4.6 MEQ/L (3.5-5.1); SODIUM LEVEL 134 MEQ/L (136-145); TOTAL PROTEIN 8.5 GM/DL (6.4-8.2); TROPONIN I < 0.02 NG/ML (< 0.10)
--- NOTE | 2019-05-08 20:38 | ECGEPIP ---
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
[2019-05-08] MEDS: MORPHINE 2 MG/ML 1ML VIAL (J2270) IV PRN ×2 (20:40→21:31)
[2019-05-08] MEDS ORDERED: MORPHINE 2 MG/ML 1ML VIAL (J2270) IV PRN (22:00)
[2019-05-08 22:21] VITALS: BP 137/85
--- NOTE | 2019-05-08 22:38 | REPVR ---
PROCEDURE INFORMATION: Exam: CT Head Without Contrast Exam date and time: 05/08/2019 10:14 PM Age: 83 years old Clinical indication: Syncope and collapse TECHNIQUE: Imaging protocol: Computed tomography of the head without contrast. Radiation optimization: All CT scans at this facility use at least one of these dose optimization techniques: automated exposure control; mA and/or kV adjustment per patient size (includes targeted exams where dose is matched to clinical indication); or iterative reconstruction. COMPARISON: CT Head without contrast 04/06/2019 6:07 PM FINDINGS: Brain: There is moderate age related global parenchymal volume loss. White matter changes are demonstrated in the subcortical, centrum semiovale and periventricular white matter consistent with age related small vessel white matter angiopathic gliosis. Ventricles: The degree of ventricular dilatation is normal for age and/or degree of atrophy present. Bones/joints: Unremarkable. No acute fracture. Sinuses: Visualized sinuses are unremarkable. No fluid levels. Mastoid air cells: Visualized mastoid air cells are well aerated. Soft tissues: Unremarkable. IMPRESSION: 1. There is moderate age related global parenchymal volume loss. White matter changes are demonstrated in the subcortical, centrum semiovale and periventricular white matter consistent with age related small vessel white matter angiopathic gliosis. 2. The degree of ventricular dilatation is normal for age and/or degree of atrophy present. Electronically signed by: yDlan Jones On 05/08/2019 22:37:52 PM
--- NOTE | 2019-05-09 00:03 | HPEPDOC ---
General Date of Admission May 08, 2019 at 17:32 Date of Service: May 08, 2019 Attending Physician: ISRRAEL DIANE MD Chief Complaint The patient is a 83-year-old male admitted with a reason for visit of Neurological Deficit, Transient/Abdominal Pain. Source: Patient, Family Exam Limitations: No limitations Timing/Duration: 4-6 hours Severity: Moderate Associated Symptoms: Other (LOC/fall/collapsed post op when he got home) History of Present Illness 83 yo man with a history of hypertension, hyperlipidemia, recent history of TIA who had an outpatient lapchole with Dr. Dubois this afternoon and was discharged home thereafter and on reaching home collapsed with brief LOC per family after which they called EMS and he was brought to the ED. In the ED, he reported some right shoulder pain that he was told to anticipate due to the recent air and possible diaphragmatic irritation but otherwise denied any chest pain, palpitations, headaches, asymmetric weakness or changes in speech or new abdominal pain. In the ED his vitals were BP 110/64, HR 102, RR 18, while saturating 98% on room air. He was conversational, quite pleasantly comical with his son at bedside and was speaking in full sentences and breathing comfortably on room air. While in the ED he was given 1L NS, the ED discussed his presentation with Dr. Lr who recommended admission to medicine for observation and he may follow with him tomorrow as a consult. Home Medications Scheduled Losartan Potassium (Losartan Potassium) 100 Mg Tab, 100 MG PO DAILY, (Reported) Metoprolol Succinate (Metoprolol Succinate) 25 Mg Tab.er.24h, 25 MG PO DAILY, (Reported) Nortriptyline HCl (Nortriptyline HCl) 10 Mg Capsule, 20 MG PO QHS, (Reported) Pregabalin (Lyrica) 100 Mg Capsule, 100 MG PO TID, (Reported) Scheduled PRN Oxycodone HCl/Acetaminophen (Oxycodone-Acetaminophen 5-325) 1 Each Tablet, 1 TAB PO TID PRN for pain, (Reported) NEW MEDICATION, HAS NOT STARTED Tramadol HCl (Tramadol HCl) 50 Mg Tab, 50 MG PO Q8H PRN for PAIN, (Reported) Allergies Coded Allergies: gabapentin (Verified Allergy, Unknown, 08/29/18) Past Medical History Medical History hypertension, hyperlipidemia, recent history of TIA, history of renal calculi, s/p appendectomy and lap cholecystectomy this afternoon Surgical History Appy, lap maxime, bilateral cataract surgery, hemorrhoidectomy Family History Significant Family History: No pertinent family hx Social History * Smoker: Denies Alcohol: Denies Drugs: denies Recent Travel/Sick Contacts: Denies: Recent travel, Recent sick contacts Psychosocial History: No pertinent psych hx A-FIB/CHADSVASC A-FIB History Current/History of A-Fib/PAF?: No Current PO Anticoag Therapy: No Age/Risk Factor Scoring CHADSVASC: CHADSVASC Response (Comments) Value Age Risk Factor Age >/= 75 years old 2 Gender Risk Factor Male 0 Hx of CHF No 0 Hx of HTN Yes 1 Hx of Stroke/TIA/or VTE Yes 2 Hx of Diabetes No 0 Hx of Vascular Disease Yes 1 Total 6 Treatment Treatment ordered: NONE Reason Anticoagulant not given: Not indicated/[id number] Review of Systems Constitutional: Denies: Chills, Fever, Night Sweats Eyes: Denies: Pain, Vision change ENT: Denies: Head Aches, Ear Pain, Dysphagia Skin: Denies: Rash, Lesions, Breakdown Pulmonary: Denies: Dyspnea, Cough Cardiovascular: Denies: Chest Pain, Palpitations, Orthopnea, Paroxysmal Noc. Dyspnea, Lt Headedness Gastrointestinal: Denies: Nausea, Vomiting, Abdominal Pain, Diarrhea Genitourinary: Denies: Dysuria, Frequency, Incontinence, Retention Hematologic: Denies: Bruising, Bleeding Excessively Endocrine: Denies: Polydipsia, Polyphagia, Polyuria, Heat Intolerance, Cold Intolerance, Other Endocrine Sx Musculoskeletal: Reports: Shoulder Pain (R shoulder pain post surgery) Neurological: Reports: Other Symptoms (brief episode of LOC ) Psych: Reports: Mood Normal; Denies: Depression, Memory Issues Physical Examination General Exam: Positive: Alert, No Acute Distress Eye Exam: Positive: PERRLA, Conjunctiva & lids normal, EOMI; Negative: Sclera icteric ENT Exam: Positive: Atraumatic, Mucous membr. moist/pink, Pharynx Normal Neck Exam: Positive: Supple; Negative: JVD, thyromegaly Chest Exam: Positive: Clear to auscultation, Normal air movement Heart Exam: Positive: Rate Normal, Regular Rhythm, Normal S1, Normal S2, Murmurs (systolic murmur at RUSB); Negative: Rubs Telemetry: Positive: No significant arrhythmia Abdomen Exam: Positive: Normal bowel sounds, Soft, Other (lap maxime surgical sites with small intact dressings with no surrounding erythema or drainage.); Negative: Tenderness, Hepatospenomegaly Extremity Exam: Positive: Normal pulses; Negative: Clubbing, Cyanosis, Edema Skin Exam: Positive: Nl turgor and temperature; Negative: Breakdown, Lesion Neuro Exam: Positive: Normal Speech, Strength at 5/5 X4 ext, Normal Tone, Sensation Intact, Cranial Nerves 3-12 NL, Reflexes 2+ Psych Exam: Positive: Mental status NL, Memory Intact, Oriented x 3 Vital Signs Vital Signs Date Time Temp Pulse Resp B/P (MAP) Pulse Ox O2 Delivery O2 Flow Rate FiO2 05/08/19 22:38 98.6 05/08/19 22:31 95 94 05/08/19 22:30 109/70 (83) 05/08/19 21:31 20 05/08/19 20:40 Room Air Laboratory Data Labs 24H Laboratory Tests 2 05/08/19 18:46: Immature Granulocyte % (Auto) 0.7, Neutrophils (%) (Auto) 88.9H, Lymphocytes (%) (Auto) 6.3L, Monocytes (%) (Auto) 4.0, Eosinophils (%) (Auto) 0.0, Basophils (%) (Auto) 0.1, Neutrophils # (Auto) 14.7H, Lymphocytes # (Auto) 1.0L, Monocytes # (Auto) 0.7, Eosinophils # (Auto) 0.0, Basophils # (Auto) 0.0, Nucleated Red Blood Cells % (auto) 0.0, Anion Gap 11, Glomerular Filtration Rate 41.9, Calcium Level 9.3, Magnesium Level 1.8, Total Bilirubin 0.7, Direct Bilirubin 0.2, Aspartate Amino Transf (AST/SGOT) 51H, Alanine Aminotransferase (ALT/SGPT) 48, Alkaline Phosphatase 104, Total Creatine Kinase 119, Creatine Kinase MB 1.8, Creatine Kinase MB Relative Index 1.51, Troponin I < 0.02, Total Protein 8.5H, Albumin 3.8, Albumin/Globulin Ratio 0.81L, Thyroid Stimulating Hormone (TSH) 1.650 05/08/19 19:20: Bedside Glucose (Misc Panel) 150H CBC/BMP Laboratory Tests 05/08/19 18:46 Assessment/Plan 83 yo man with a history of hypertension, hyperlipidemia, recent history of TIA who had an outpatient lap maxime with Dr. Dubois this afternoon and was discharged home and on reaching home collapsed with brief LOC and BIBEMS with now grossly normal exam, CT head without acute pathology, negative troponin wit hout ST changes on EKG or dysrhythmic activity on telemetry doing well s/p 1L NS, admitted for observation. Pre +/- syncope post op: Likely 2/2 dehydration with noted likely prerenal TYSHAWN, with unrevealing CT, neurological exam without deficits, non ischemic EKG, negative troponin, no evidence of dysrhythmia. -monitor on telemetry -consulted Dr. Lr for a postop evaluation before likely discharge home -PT, OT for safe discharge clearance -s/p 1L NS -adequate pain control with morphine. Hold all other sedating meds for now -CXR without amber opacities Leukocytosis: -likely reactive post op, will monitor for any signs of infection TYSHAWN: likely prerenal -check AM BMP after the fluids HTN: -continue home metop, losartan Pain management: -morphine PRN for severe pain and tyelnol for mild pain Diet: regular DVT ppx: heparin Plan / VTE VTE Prophylaxis Ordered?: Yes ISRRAEL DIANE MD May 09, 2019 00:03
[2019-05-09 06:00] VITALS: BP 140/81
--- NOTE | 2019-05-09 06:59 | REP ---
AP PORTABLE CHEST: 05/08/2019. Clinical history: Syncope/near-syncope. Comparison: CT chest 04/06/2019, AP chest 04/06/2019, 04/05/2019. Findings: AP portable view is somewhat lordotic which limits evaluation of the lower lung zones. Chronic interstitial fibrotic changes are again seen. They are slightly dense in the retrocardiac left lower lobe and less dense opacity in the periphery of the left mid lung zone. Peripheral interstitial pattern and honeycombing suspected. Cardiac silhouette mildly prominent with left ventricular enlargement and left atrial enlargement. The aorta is mildly tortuous. Airway intact. Bones unchanged and with degenerative changes spine and shoulders. No free air. Impression: 1. Hypoinflated chest with diffuse underlying chronic interstitial fibrotic changes. Heavier fibrosis peripherally left mid lung zone and retrocardiac region but no dense superimposed consolidation, growth, gross effusion or amber edema. Electronically Signed by Braulio Raines MD 05/09/2019 07:47 P
[2019-05-09] MEDS: HEPARIN SOD (PORCINE) 5000 UNITS/ML VIAL (J1644 PER 1000UNITS) SQ SCH ×2 (08:50→20:44)
[2019-05-09] MEDS: LOSARTAN 50 MG TAB PO SCH (08:51)
[2019-05-09] MEDS ORDERED: ENOXAPARIN 40 MG/0.4 ML SYRINGE (J1650) SC SCH (09:00)
[2019-05-09] MEDS ORDERED: METOPROLOL SUCC *XL* 25MG TAB (TopROL *XL*) PO SCH (09:00)
[2019-05-09] MEDS ORDERED: PILL CUTTER 1 EACH XX PRN (09:00)
--- NOTE | 2019-05-09 09:59 | IPN ---
DATE: 05/09/2019 The patient underwent a laparoscopic cholecystectomy and essentially left the advanced recovery, went home and felt faint, came back into the emergency room and was admitted through the hospitalists and is here for additional evaluation/treatment. He is a frail 83-year-old male who states that his abdominal pain was worse yesterday and it is much better today. I was there at his bedside when he was sitting up and he had some spasm and he did get a little bit of almost a vagal type of appearance with some discomfort and I am wondering if that was what occurred yesterday that brought him back in. In any case, he states his abdominal pain is better today than it was yesterday, but he is feeling bloated. He has not nauseated, but he is not really hungry either. He is feeling rather weak. PHYSICAL EXAMINATION: On his physical examination, his abdomen is distended, tympanitic and without significant guarding, rebound or peritoneal signs. His dressings are clean and dry without erythema, drains or discharge. There is a little blood shadowing on one of the dressings, but otherwise no active bleeding appreciated. IMPRESSION AND PLAN The patient has evidence of some sort of either of either a vagal or syncope issue that occurred yesterday. I will defer that evaluation to the medicine group, but from my standpoint he seems better from a pain standpoint today. However, he is still quite distended. I will order some simethicone for him, but given his distension and his overall frail appearance I anticipate that we will need to slowly and will probably need to be here today. I would encourage him to increase his activity over the day. I will order some simethicone and some Colace and will see how he is doing.
[2019-05-09] MEDS: ACETAMINOPHEN TAB 650MG DOSE (2X325MG) PO PRN (11:42)
[2019-05-09] MEDS: DOCUSATE SODIUM 100 MG CAP PO SCH ×2 (12:07→20:43)
[2019-05-09 12:08] LABS: HEMATOCRIT 36.6 % (42.0-52.0); MEAN CORPUSCULAR HEMOGLOBIN 30.7 pg (27.0-33.0); MEAN CORPUSCULAR HGB CONC 30.9 g/dl (32.0-36.5); MEAN CORPUSCULAR VOLUME 99.5 fl (80.0-96.0); PLATELET COUNT, AUTOMATED 185 10^3/uL (150-450); RED BLOOD COUNT 3.68 10^6/uL (4.30-6.10); WHITE BLOOD COUNT 27.8 10^3/uL (4.0-10.0)
[2019-05-09] MEDS: SIMETHICONE 80 MG CHEW TAB PO SCH ×4 (12:08→20:43)
--- NOTE | 2019-05-09 12:10 | IPNPDOC ---
Subjective Date Seen The patient was seen on 05/09/19. Subjective Chief Complaint/HPI Patient is still complaining of right shoulder pain and worried about whether he had a TIA. Son also was concern about TIA and his high cholesterol use the discharge today General: Denies: ROS Unobtainable, Chills, Night Sweats, Fatigue, Malaise, Normal Appetite, Other Symptoms Constitutional: Denies: Chills, Fever, Malaise, Night Sweats, Weakness, Fatigue, Weight Loss, Lethargy, Other Skin: Denies: Rash, Lesions, Jaundice, Bruising, Itching, Dry, Breakdown, Nail Changes, Other Pulmonary: Denies: Dyspnea, Cough, Pleuritic Chest Pain, Other Symptoms Cardiovascular: Denies: Chest Pain, Palpitations, Orthopnea, Paroxysmal Noc. Dyspnea, Edema, Lt Headedness, Other Symptoms Gastrointestinal: Reports: Other Symptoms (right shoulder pain); Denies: Nausea, Vomiting, Abdominal Pain, Diarrhea, Constipation, Melena, Hematochezia Musculoskeletal: Denies: Neck Pain, Back Pain, Shoulder Pain, Arm Pain, Hand Pain, Leg Pain, Foot Pain, Joint Pain, Muscle Pain, Spasms, Other Symptoms Neurological: Denies: Weakness, Numbness, Incoordination, Change in speech, Confusion, Seizures, Other Symptoms Objective Physical Examination Eye Exam: Negative: Sclera icteric ENT Exam: Positive: Atraumatic, Mucous membr. moist/pink, Pharynx Normal Neck Exam: Positive: Supple; Negative: JVD, thyromegaly Chest Exam: Positive: Clear to auscultation, Normal air movement Heart Exam: Positive: Rate Normal, Regular Rhythm, Normal S1, Normal S2, Murm urs (systolic murmur at RUSB); Negative: Rubs Telemetry: Positive: No significant arrhythmia Abdomen Exam: Positive: Normal bowel sounds, Soft, Other (lap maxime surgical sites with small intact dressings with no surrounding erythema or drainage.); Negative: Tenderness, Hepatospenomegaly Extremity Exam: Positive: Normal pulses; Negative: Clubbing, Cyanosis, Edema Skin Exam: Positive: Nl turgor and temperature; Negative: Breakdown, Lesion Neuro Exam: Positive: Normal Speech, Strength at 5/5 X4 ext, Normal Tone, Sensation Intact, Cranial Nerves 3-12 NL, Reflexes 2+ Assessment /Plan Problems (1) Pre-syncope Status: Acute Problem Text: Patient's CT of the head is essentially negative. He has no neurological symptoms , But patient is not feeling comfortable leaving today and he refuses discharge this morning Discussed with patient and his son over the phone. Will get MRI of the brain as well as lipid profile, CBC and CMP in a.m. And will control was a referred pain with pain medications and hopefully will possibly discharge him tomorrow if all workup is negative Continue telemetry monitoring Edema present meds (2) Referred abdominal pain Status: Acute Problem Text: Most likely referred pain after cholecystectomy to his right shoulder secondary to friend in the phrenic nerve stimulation Continue pain medication as per orders We will clinically monitor patient (3) HTN (hypertension) Status: Chronic Problem Text: Continue home meds (4) HLD (hyperlipidemia) Status: Chronic Problem Text: Lipid profile in a.m. Plan/VTE VTE Prophylaxis Ordered?: Yes VS, I&O, 24H, Fishbone Vital Signs/I&O Vital Signs Date Time Temp Pulse Resp B/P (MAP) Pulse Ox O2 Delivery O2 Flow Rate FiO2 05/09/19 08:50 140/81 05/09/19 06:00 99.2 115 16 93 Room Air I&O- Last 24 Hours up to 6 AM 05/09/19 06:00 Intake Total 1000 ml Output Total 0 ml Balance 1000 ml Laboratory Data 24H LABS Laboratory Tests 2 05/08/19 18:46: Immature Granulocyte % (Auto) 0.7, Neutrophils (%) (Auto) 88.9H, Lymphocytes (%) (Auto) 6.3L, Monocytes (%) (Auto) 4.0, Eosinophils (%) (Auto) 0.0, Basophils (%) (Auto) 0.1, Neutrophils # (Auto) 14.7H, Lymphocytes # (Auto) 1.0L, Monocytes # (Auto) 0.7, Eosinophils # (Auto) 0.0, Basophils # (Auto) 0.0, Nucleated Red Blood Cells % (auto) 0.0, Anion Gap 11, Glomerular Filtration Rate 41.9, Calcium Level 9.3, Magnesium Level 1.8, Total Bilirubin 0.7, Direct Bilirubin 0.2, Aspartate Amino Transf (AST/SGOT) 51H, Alanine Aminotransferase (ALT/SGPT) 48, Alkaline Phosphatase 104, Total Creatine Kinase 119, Creatine Kinase MB 1.8, Creatine Kinase MB Relative Index 1.51, Troponin I < 0.02, Total Protein 8.5H, Albumin 3.8, Albumin/Globulin Ratio 0.81L, Thyroid Stimulating Hormone (TSH) 1.650 05/08/19 19:20: Bedside Glucose (Misc Panel) 150H CBC/BMP Laboratory Tests 05/08/19 18:46 CORY GROSS MD May 09, 2019 12:10
[2019-05-09 12:13] LABS: HEMOGLOBIN 11.3 g/dl (13.5-17.5)
[2019-05-09] MEDS ORDERED: PERCOCET 5MG/325MG TAB PO PRN (12:30)
[2019-05-09 12:40] LABS: ALBUMIN 3.3 GM/DL (3.2-5.2); BILIRUBIN,TOTAL 0.7 MG/DL (0.2-1.0); CALCIUM LEVEL 9.3 MG/DL (8.8-10.2); CHOLESTEROL RISK RATIO 5.967 (<5); CREATININE FOR GFR 1.56 MG/DL (0.70-1.30); GLOMERULAR FILTRATION RATE 45.6 (>35); MAGNESIUM LEVEL 2.1 MG/DL (1.8-2.4); POTASSIUM SERUM 4.9 MEQ/L (3.5-5.1); TOTAL PROTEIN 6.7 GM/DL (6.4-8.2)
[2019-05-09 14:00] VITALS: BP 113/71
[2019-05-09] MEDS: PIPERACILLIN/TAZOBACTAM SOD 3.375 GM in D5W MINI-BAG PLUS 50 ML IV SCH (17:30)
[2019-05-09 22:00] VITALS: BP 113/70
[2019-05-10] MEDS: PIPERACILLIN/TAZOBACTAM SOD 3.375 GM in D5W MINI-BAG PLUS 50 ML IV SCH ×4 (00:27→17:44)
[2019-05-10 05:57] LABS: BASO % 0.1 % (0.0-1.0); EOS % 0.1 % (0.0-3.0); HEMATOCRIT 26.1 % (42.0-52.0); LYMPH # 3.2 10^3/uL (1.5-5.0); LYMPH % 15.6 % (24.0-44.0); MEAN CORPUSCULAR HEMOGLOBIN 31.4 pg (27.0-33.0); MEAN CORPUSCULAR HGB CONC 32.6 g/dl (32.0-36.5); MEAN CORPUSCULAR VOLUME 96.3 fl (80.0-96.0); MONO # 1.9 10^3/uL (0.0-0.8); MONO % 9.3 % (0.0-5.0); NEUTROPHILS # 15.2 10^3/uL (1.5-8.5); NEUTROPHILS % 74.2 % (36.0-66.0); PLATELET COUNT, AUTOMATED 180 10^3/uL (150-450); RED BLOOD COUNT 2.71 10^6/uL (4.30-6.10); WHITE BLOOD COUNT 20.5 10^3/uL (4.0-10.0)
[2019-05-10 06:00] VITALS: BP 110/65
[2019-05-10 06:06] LABS: HEMOGLOBIN 8.5 g/dl (13.5-17.5)
[2019-05-10 06:33] LABS: ALBUMIN 2.8 GM/DL (3.2-5.2); BILIRUBIN,TOTAL 0.6 MG/DL (0.2-1.0); CALCIUM LEVEL 8.7 MG/DL (8.8-10.2); CREATININE FOR GFR 1.46 MG/DL (0.70-1.30); GLOMERULAR FILTRATION RATE 49.2 (>35); POTASSIUM SERUM 4.7 MEQ/L (3.5-5.1); TOTAL PROTEIN 6.5 GM/DL (6.4-8.2)
--- NOTE | 2019-05-10 07:15 | REP ---
MRI BRAIN WITHOUT CONTRAST: 05/09/2019. Comparison: Clinical history: TIA. Slurred speech. Left-sided weakness and confusion that began last evening. Technique: Sagittal T1-weighted, axial T1, T2, FLAIR, gradient-echo, diffusion-weighted images and ADC mapping sequences. Findings: Lateral ventricles are symmetric and dilated in proportion to the diffuse cerebral atrophy. That is age appropriate. Third and fourth ventricles also appropriate size. Basal ganglia show a few dilated spaces of Virchow, right more than left. One larger in the putamen on the right might be a small brain cyst or old lacunar infarct. The camargo-white junction differentiation is maintained. There are extensive periventricular, deep and subcortical white matter hyperintense T2 and FLAIR foci in both hemispheres representing chronic small vessel ischemic changes. These were seen previously and are unchanged in the past month. Cortical stripe shows some atrophy, but no extra-axial fluid collections. Atrophy is greatest in the temporal lobes where it is quite severe and next in the frontal lobes, but present throughout. I see no vascular territory infarct, intracranial hemorrhage, mass or mass effect. Brainstem and cerebellum were grossly intact. The seventh/eighth cranial nerve complexes are normal. A few mastoid air cells on the right side are opacified while the left is unremarkable. Visualized sinuses show only a couple of ethmoid air cells with mucosal thickening. Orbits and contents symmetric and grossly normal. Corpus callosum is slightly thinned. Likewise infundibulum slightly thinned. The pituitary is not enlarged. There is a very tortuous basilar artery abutting the ventral surface of the medulla. I do not see evidence of acute ischemia on the diffusion images or ADC mapping sequences. Impression: 1. 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 No bleed. No mass. 2. Ventriculomegaly, old lacunar infarct in the right basal ganglia, and advanced atrophy in proportion to the ventriculomegaly. 3. Diffusion weighted images and ADC mapping sequences show no evidence of acute ischemia. Stable examination. Electronically Signed by Braulio Raines MD 05/10/2019 08:06 P
--- NOTE | 2019-05-10 08:28 | REP ---
CAROTID DUPLEX ULTRASOUND: 05/09/2019. Clinical history: Syncope. Findings: No prior study. Standard techniques were utilized. There is soft and mixed plaque along the common carotid artery course. There is some soft and mixed plaque at the bulb and into the proximal ECA. Some mild plaque seen in the proximal ICA, soft posteriorly and mixed anteriorly. There is more plaque seen in the mid ICA with poor visualization of the distal ICA. The left common carotid shows some intimal thickening with distal soft plaque and some soft plaque and some mixed plaque at the bulb and into the proximal [employer] RECEPTIONIST. There is also some soft and mixed plaque into the proximal ICA. Plaque in the mid ICA also noted with mixed features. Peak velocities Right Left CCA systolic 0.73 m/s 0.91 m/s ICA systolic 1.10 m/s 0.86 m/s ICA diastolic 0.34 m/s 0.32 m/s ECA systolic 0.91 m/s 0.63 m/s ICA/CCA ratio 1.52 0.94 Cranial direction of flow is seen bilaterally in the vertebral arteries. Doppler waveform analysis shows some mild spectral broadening in the mid and distal ICA on the left and right which may be due to technical factors. There is no significant stenosis in the proximal ICA on either side. No extensive tortuosity. Plaque is modest. Impression: 1. 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 No hemodynamically significant or flow restricting lesion visible. 2. Cranial direction of flow vertebral arteries. Electronically Signed by Braulio Raines MD 05/10/2019 08:12 P
[2019-05-10] MEDS: SIMETHICONE 80 MG CHEW TAB PO SCH ×4 (10:58→20:25)
[2019-05-10] MEDS: DOCUSATE SODIUM 100 MG CAP PO SCH ×2 (10:58→20:26)
[2019-05-10] MEDS: LOSARTAN 50 MG TAB PO SCH (10:59)
--- NOTE | 2019-05-10 10:59 | IPNPDOC ---
Subjective Date Seen The patient was seen on 05/10/19. Subjective Chief Complaint/HPI Patient had a period of confusion yesterday, which resolved spontaneously. He does have a memory deficits, but today seems to be chronic. No acute neuro changes at the present time is abdominal pain. His right shoulder pain is resolved. General: Denies: ROS Unobtainable, Chills, Night Sweats, Fatigue, Malaise, Normal Appetite, Other Symptoms Eyes: Denies: Pain, Vision change, Conjunctivae inflammation, Eyelid inflammation, Redness, Other Cardiovascular: Denies: Chest Pain, Palpitations, Orthopnea, Paroxysmal Noc. Dyspnea, Edema, Lt Headedness, Other Symptoms Gastrointestinal: Denies: Nausea, Vomiting, Abdominal Pain, Diarrhea, Constipation, Melena, Hematochezia, Other Symptoms Endocrine: Denies: Polydipsia, Polyphagia, Polyuria, Heat Intolerance, Cold Intolerance, Other Endocrine Sx Musculoskeletal: Denies: Neck Pain, Back Pain, Shoulder Pain, Arm Pain, Hand Pain, Leg Pain, Foot Pain, Joint Pain, Muscle Pain, Spasms, Other Symptoms Neurological: Denies: Weakness, Numbness, Incoordination, Change in speech, Confusion, Seizures, Other Symptoms Objective Physical Examination Eye Exam: Negative: Sclera icteric ENT Exam: Positive: Atraumatic, Mucous membr. moist/pink, Pharynx Normal Neck Exam: Positive: Supple; Negative: JVD, thyromegaly Chest Exam: Positive: Clear to auscultation, Normal air movement Heart Exam: Positive: Rate Normal, Regular Rhythm, Normal S1, Normal S2, Murmurs (systolic murmur at RUSB); Negative: Rubs Telemetry: Positive: No significant arrhythmia Abdomen Exam: Positive: Normal bowel sounds, Soft, Other (lap maxime surgical sites with small intact dressings with no surrounding erythema or drainage.); Negative: Tenderness, Hepatospenomegaly Extremity Exam: Positive: Normal pulses; Negative: Clubbing, Cyanosis, Edema Skin Exam: Positive: Nl turgor and temperature; Negative: Breakdown, Lesion Neuro Exam: Positive: Normal Speech, Strength at 5/5 X4 ext, Normal Tone, Sensation Intact, Cranial Nerves 3-12 NL, Reflexes 2+ Assessment /Plan Problems (1) Pre-syncope Status: Acute Problem Text: Patient's CT of the head is essentially negative. He has no neurological symptoms MRI of the brain is essentially shows age-related changes, no acute CVA or hemorrhage Carotid Dopplers are essentially within normal limits Physical therapy (2) Referred abdominal pain Status: Acute Problem Text: Pain has resolved completely Continue meds when necessary (3) HTN (hypertension) Status: Chronic Problem Text: Continue home meds (4) HLD (hyperlipidemia) Status: Chronic Problem Text: Lipid profile in a.m. (5) TYSHAWN (acute kidney injury) Status: Acute Problem Text: Most likely secondary to dehydration and poor by mouth intake Will start IV fluid normal saline and gently at 70 mL per hour Oral hydration was recommended again Check labs in a.m. (6) Leukocytosis Status: Acute Problem Text: Patient. WBC count is 20,000 today. Etiology is still unknown Could be acute phase reaction secondary to surgery Patient has been started on Zosyn prophylactically Chest x-ray has been ordered which is pending Eschen, afebrile, asymptomatic. We'll check labs in a.m. Plan/VTE VTE Prophylaxis Ordered?: Yes VS, I&O, 24H, Fishbone Vital Signs/I&O Vital Signs Date Time Temp Pulse Resp B/P (MAP) Pulse Ox O2 Delivery O2 Flow Rate FiO2 05/10/19 06:00 98.4 98 20 110/65 (80) 93 Room Air I&O- Last 24 Hours up to 6 AM 05/10/19 06:00 Intake Total 320 ml Output Total 700 ml Balance -380 ml Laboratory Data 24H LABS Laboratory Tests 2 05/09/19 12:00: Nucleated Red Blood Cells % (auto) 0.0, Anion Gap 10, Glomerular Filtration Rate 45.6, Calcium Level 9.3, Magnesium Level 2.1, Total Bilirubin 0.7, Aspartate Amino Transf (AST/SGOT) 33, Alanine Aminotransferase (ALT/SGPT) 40, Alkaline Phosphatase 84, Total Protein 6.7#, Albumin 3.3, Albumin/Globulin Ratio 0.97L, Triglycerides Level 170H, Total Cholesterol 185, LDL Cholesterol 120H, Non-HDL Cholesterol (LDL + VLDL) 154, Total HDL Cholesterol 31L, Cholesterol/HDL Ratio 5.967H 05/10/19 05:29: Nucleated Red Blood Cells % (auto) 0.0, Anion Gap 4L, Glomerular Filtration Rate 49.2, Calcium Level 8.7L, Total Bilirubin 0.6, Aspartate Amino Transf (AST/SGOT) 29, Alanine Aminotransferase (ALT/SGPT) 33, Alkaline Phosphatase 61, Total Protein 6.5, Albumin 2.8L, Albumin/Globulin Ratio 0.76L, Immature Granulocyte % (Auto) 0.7, Neutrophils (%) (Auto) 74.2H, Lymphocytes (%) (Auto) 15.6L, Monocytes (%) (Auto) 9.3H, Eosinophils (%) (Auto) 0.1, Basophils (%) (Auto) 0.1, Neutrophils # (Auto) 15.2H, Lymphocytes # (Auto) 3.2, Monocytes # (Auto) 1.9H, Eosinophils # (Auto) 0.0, Basophils # (Auto) 0.0 CBC/BMP Laboratory Tests 05/09/19 12:00 05/10/19 05:29 CORY GROSS MD May 10, 2019 10:59
[2019-05-10] MEDS: HEPARIN SOD (PORCINE) 5000 UNITS/ML VIAL (J1644 PER 1000UNITS) SQ SCH ×2 (11:00→20:26)
--- NOTE | 2019-05-10 11:30 | REP ---
AP PORTABLE CHEST: 05/10/2019. Comparison: AP chest 05/08/2019, CT 02/04/2019. Clinical history: Abnormal breath sounds right base. Findings: AP seated portable chest shows somewhat better inflation compared to yesterday. There is less haziness in the left base with better aeration. There is fibrotic change in the left mid and lower lung zone. This is superimposed on diffuse mild interstitial fibrotic change. However, there is a new finding of air under both diaphragms. This is not new since yesterday's seated portable chest. The heart is not grossly enlarged. The aorta is calcified and tortuous. Airway intact. No abnormal widening of the mediastinum. Bones are demineralized. Impression: 1. New finding of air under both diaphragms representing free intraperitoneal air. I spoke to the ordering physician at the time of this dictation who informs me that the patient had laparoscopic cholecystectomy a couple of days ago and has returned to hospital since. 2. No dense consolidation or pleural effusion at the right base and improvement in the haziness at the left base on previous study. There is heavier fibrosis in the left mid lung zone and diffuse interstitial fibrotic changes throughout both lungs. Limited AP portable chest. A PA and lateral when able may be helpful. Electronically Signed by Braulio Raines MD 05/10/2019 08:24 P
[2019-05-10] MEDS: PERCOCET 5MG/325MG TAB PO PRN (12:24)
[2019-05-10] MEDS: NS 1,000 ML IV SCH (12:25)
[2019-05-10 14:00] VITALS: BP 108/99
[2019-05-10 15:46] LABS: HEMATOCRIT 23.2 % (42.0-52.0); HEMOGLOBIN 7.4 g/dl (13.5-17.5); MEAN CORPUSCULAR HEMOGLOBIN 30.6 pg (27.0-33.0); MEAN CORPUSCULAR HGB CONC 31.9 g/dl (32.0-36.5); MEAN CORPUSCULAR VOLUME 95.9 fl (80.0-96.0); PLATELET COUNT, AUTOMATED 165 10^3/uL (150-450); RED BLOOD COUNT 2.42 10^6/uL (4.30-6.10); WHITE BLOOD COUNT 20.6 10^3/uL (4.0-10.0)
--- NOTE | 2019-05-10 15:50 | IPN ---
DATE: 05/10/2019 Patient states that he is feeling a little bit better today. His white count was significantly elevated yesterday and it is down a little bit better today. He states his abdominal pain is better as well and he still has some distension and obviously has evidence of decreasing hematocrit. He has been afebrile. He has had decreasing abdominal pain, nausea and has tolerated a regular diet today. His family is with him now, states that he does not seem any more short of breath and overall seems more comfortable today than he was yesterday. His physical exam revealed diminished breath sounds bilaterally at the bases and I anticipate this is mostly compressive atelectasis from some mildly dilated abdomen, but what is more impressive is that he does have a hematoma developing in his abdominal wall along the right-hand side. There is some ecchymosis that is spreading a little bit. There is no evidence of cellulitis. No evidence of infection in this area. IMPRESSION AND PLAN: The patient has some improvement of his abdominal pain and discomfort. He has been tolerating a regular diet, fortunately, and overall seems to make some slow progression. However, he is still confused, slightly more than he was yesterday. The family seems to see think that this is a waxing and waning problem. He does not have any focal deficit. Neurologically, he is moving all extremities without complaints. He does complain of some sharp pain that occurs with coughing on the right-hand side in the area of the abdominal wall hematoma. Thus at this point, I do feel that given the presentation of the hematoma, I anticipate probably had a bleed from his rectus muscle and that may contribute to a possible vasovagal. Also, anticoagulation on board may have contributed to this as well, and some of his hypertensive medications. I will defer to medicine for their opinion concerning evaluation/treatment of this. He is currently on some antibiotics empirically to treat any possible infectious process. However, his abdomen seems less distended today than it was yesterday and definitely less tender than it was compared to yesterday. We will get a followup hemoglobin/hematocrit this afternoon make sure that it is not continuing to decrease, otherwise he may be a transfusion. I have discussed this with the family and they understand and would agree to have a transfusion should this be necessary.
[2019-05-10 22:00] VITALS: BP 90/48
[2019-05-10] MEDS: RAMELTEON 8 MG TAB (ROZEREM) PO SCH (22:44)
[2019-05-10 22:48] VITALS: BP 132/71
[2019-05-11] VITALS (13 sets, daily range): BP systolic 92–117; BP diastolic 54–67
[2019-05-11] MEDS: PIPERACILLIN/TAZOBACTAM SOD 3.375 GM in D5W MINI-BAG PLUS 50 ML IV SCH ×4 (00:36→18:38)
[2019-05-11] MEDS: NS 1,000 ML IV SCH ×2 (05:29→18:26)
[2019-05-11 06:01] LABS: BASO % 0.2 % (0.0-1.0); EOS # 0.4 10^3/uL (0.0-0.5); EOS % 2.7 % (0.0-3.0); LYMPH # 3.8 10^3/uL (1.5-5.0); LYMPH % 23.6 % (24.0-44.0); MEAN CORPUSCULAR HEMOGLOBIN 31.4 pg (27.0-33.0); MEAN CORPUSCULAR HGB CONC 32.8 g/dl (32.0-36.5); MEAN CORPUSCULAR VOLUME 95.6 fl (80.0-96.0); MONO # 1.6 10^3/uL (0.0-0.8); MONO % 9.7 % (0.0-5.0); NEUTROPHILS # 10.2 10^3/uL (1.5-8.5); NEUTROPHILS % 62.9 % (36.0-66.0); PLATELET COUNT, AUTOMATED 162 10^3/uL (150-450); RED BLOOD COUNT 2.04 10^6/uL (4.30-6.10); WHITE BLOOD COUNT 16.1 10^3/uL (4.0-10.0)
[2019-05-11 06:07] LABS: HEMOGLOBIN 6.4 g/dl (13.5-17.5)
[2019-05-11 06:08] LABS: HEMATOCRIT 19.5 % (42.0-52.0)
[2019-05-11 06:26] LABS: ALBUMIN 2.5 GM/DL (3.2-5.2); BILIRUBIN,TOTAL 0.8 MG/DL (0.2-1.0); CALCIUM LEVEL 8.1 MG/DL (8.8-10.2); CREATININE FOR GFR 1.35 MG/DL (0.70-1.30); GLOMERULAR FILTRATION RATE 53.9 (>35); POTASSIUM SERUM 4.2 MEQ/L (3.5-5.1); TOTAL PROTEIN 5.9 GM/DL (6.4-8.2)
[2019-05-11] MEDS: HEPARIN SOD (PORCINE) 5000 UNITS/ML VIAL (J1644 PER 1000UNITS) SQ SCH ×2 (07:59→20:27)
[2019-05-11] MEDS: LOSARTAN 50 MG TAB PO SCH (08:00)
[2019-05-11] MEDS: DOCUSATE SODIUM 100 MG CAP PO SCH ×2 (08:01→20:26)
[2019-05-11] MEDS: SIMETHICONE 80 MG CHEW TAB PO SCH ×4 (08:01→20:26)
[2019-05-11] MEDS: ACETAMINOPHEN TAB 650MG DOSE (2X325MG) PO PRN (08:19)
--- NOTE | 2019-05-11 10:25 | IPNPDOC ---
Subjective Date Seen The patient was seen on 05/11/19. Subjective Chief Complaint/HPI Patient feels much better today. No more right shoulder pain. Offers no new complaints General: Denies: ROS Unobtainable, Chills, Night Sweats, Fatigue, Malaise, Normal Appetite, Other Symptoms Constitutional: Denies: Chills, Fever, Malaise, Night Sweats, Weakness, Fatigue, Weight Loss, Lethargy, Other Pulmonary: Denies: Dyspnea, Cough, Pleuritic Chest Pain, Other Symptoms Cardiovascular: Denies: Chest Pain, Palpitations, Orthopnea, Paroxysmal Noc. Dyspnea, Edema, Lt Headedness, Other Symptoms Gastrointestinal: Denies: Nausea, Vomiting, Abdominal Pain, Diarrhea, Constipation, Melena, Hematochezia, Other Symptoms Musculoskeletal: Denies: Neck Pain, Back Pain, Shoulder Pain, Arm Pain, Hand Pain, Leg Pain, Foot Pain, Joint Pain, Muscle Pain, Spasms, Other Symptoms Neurological: Denies: Weakness, Numbness, Incoordination, Change in speech, Confusion, Seizures, Other Symptoms Objective Physical Examination ENT Exam: Positive: Atraumatic, Mucous membr. moist/pink, Pharynx Normal Neck Exam: Positive: Supple Chest Exam: Positive: Clear to auscultation, Normal air movement Heart Exam: Positive: Rate Normal, Regular Rhythm, Normal S1, Normal S2, Murmurs (systolic murmur at RUSB); Negative: Rubs Telemetry: Positive: No significant arrhythmia Abdomen Exam: Positive: Normal bowel sounds, Soft, Other (lap maxime surgical sites with small intact dressings with no surrounding erythema or drainage.); Negative: Tenderness, Hepatospenomegaly Extremity Exam: Positive: Normal pulses Skin Exam: Positive: Nl turgor and temperature Assessment /Plan Problems (1) Pre-syncope Status: Acute Problem Text: Patient's CT of the head is essentially negative. He has no neurological symptoms MRI of the brain is essentially shows age-related changes, no acute CVA or hemorrhage Carotid Dopplers are essentially within normal limits Could be secondary to beta blockers as patient did had positive noticed on engineering analyst and beta blockers have been stopped Physical therapy in progress (2) Referred abdominal pain Status: Acute Problem Text: Pain has resolved completely Continue meds when necessary (3) HTN (hypertension) Status: Chronic Problem Text: . Beta blockers were DC'd as per patient's son. He started having frequent falls after that was started. Patient's blood sugars under well control without beta blockers added present time. His blood pressures 112/67 and heart rate of 74 Will monitor clinically, this could be the reason for patient's any presyncopal episode (4) HLD (hyperlipidemia) Status: Chronic Problem Text: Lipid profile in a.m. (5) TYSHAWN (acute kidney injury) Status: Acute Problem Text: Most likely secondary to dehydration and poor by mouth intake Will start IV fluid normal saline and gently at 70 mL per hour Oral hydration was recommended again BUN 34, creatinine 1.35. Today (6) Leukocytosis Status: Acute Problem Text: Patient. WBC count is progressively going down at 16,000 today Could be acute phase reaction secondary to surgery Patient has been started on Zosyn empirically and will continue the same 2, white count normalizes (7) Acute blood loss anemia Status: Acute Problem Text: Acute blood loss anemia secondary to hematoma secondary to recent surgery Transfuse 2 units of PRBC today Repeat H&H in a.m. Surgical follow-up appreciated Plan/VTE VTE Prophylaxis Ordered?: Yes VS, I&O, 24H, Fishbone Vital Signs/I&O Vital Signs Date Time Temp Pulse Resp B/P (MAP) Pulse Ox O2 Delivery O2 Flow Rate FiO2 05/11/19 08:00 112/67 05/11/19 06:00 98.1 93 19 97 Room Air I&O- Last 24 Hours up to 6 AM 05/11/19 05:59 Intake Total 1905 ml Output Total 175 ml Balance 1730 ml Laboratory Data 24H LABS Laboratory Tests 2 05/10/19 15:10: Nucleated Red Blood Cells % (auto) 0.0 05/11/19 05:38: Nucleated Red Blood Cells % (auto) 0.1H, Immature Granulocyte % (Auto) 0.9, Neutrophils (%) (Auto) 62.9, Lymphocytes (%) (Auto) 23.6L, Monocytes (%) (Auto) 9.7H, Eosinophils (%) (Auto) 2.7, Basophils (%) (Auto) 0.2, Neutrophils # (Auto) 10.2H, Lymphocytes # (Auto) 3.8, Monocytes # (Auto) 1.6H, Eosinophils # (Auto) 0.4, Basophils # (Auto) 0.0, Anion Gap 6L, Glomerular Filtration Rate 53.9, Calcium Level 8.1L, Total Bilirubin 0.8, Aspartate Amino Transf (AST/SGOT) 22, Alanine Aminotransferase (ALT/SGPT) 23, Alkaline Phosphatase 60, Total Protein 5.9L, Albumin 2.5L, Albumin/Globulin Ratio 0.74L CBC/BMP Laboratory Tests 05/10/19 15:10 05/11/19 05:38 CORY GROSS MD May 11, 2019 10:25
--- NOTE | 2019-05-11 10:46 | REP ---
CT of the abdomen and pelvis without IV or bowel contrast: Comparison is 04/06/2099. The patient has had an interim cholecystectomy. Additionally the patient reportedly has an appendectomy and has a history of renal calculi. There are small bilateral pleural effusions in the visualized lung quiñones. The gallbladder is surgically absent. There is surgical clips in the gallbladder fossa. There is a small volume of fluid surrounding the liver and spleen. There are occasional air bubbles within the fluid surrounding the liver compatible with pneumoperitoneum. The pancreas is unremarkable except for fatty atrophy. The spleen is normal size and otherwise unremarkable. The adrenals are unremarkable. The kidneys are unremarkable. No hydronephrosis or renal calculi are identified. The abdominal aorta is R. There is no retroperitoneal adenopathy or mass. The mesentery and bowel are unremarkable. Pelvis: There is a small volume of free fluid. The bladder is unremarkable. There is no adenopathy. The pelvic bowel loops are unremarkable. Impression: The there is been interim cholecystectomy. There is a small volume of free fluid surrounding the liver and spleen with a small air bubbles in the fluid surrounding the liver compatible with pneumoperitoneum. Electronically Signed by Raffy Howard MD 05/11/2019 10:37 A
[2019-05-11] MEDS: RAMELTEON 8 MG TAB (ROZEREM) PO SCH (20:26)
[2019-05-12] MEDS: PIPERACILLIN/TAZOBACTAM SOD 3.375 GM in D5W MINI-BAG PLUS 50 ML IV SCH ×2 (00:28→05:41)
[2019-05-12 06:00] VITALS: BP 103/59
[2019-05-12 06:48] LABS: BASO % 0.3 % (0.0-1.0); EOS # 1.2 10^3/uL (0.0-0.5); EOS % 8.4 % (0.0-3.0); HEMATOCRIT 27.6 % (42.0-52.0); LYMPH # 3.2 10^3/uL (1.5-5.0); MEAN CORPUSCULAR HEMOGLOBIN 31.3 pg (27.0-33.0); MEAN CORPUSCULAR HGB CONC 33.3 g/dl (32.0-36.5); MEAN CORPUSCULAR VOLUME 93.9 fl (80.0-96.0); MONO # 1.4 10^3/uL (0.0-0.8); MONO % 9.4 % (0.0-5.0); NEUTROPHILS # 8.4 10^3/uL (1.5-8.5); NEUTROPHILS % 57.5 % (36.0-66.0); PLATELET COUNT, AUTOMATED 180 10^3/uL (150-450); RED BLOOD COUNT 2.94 10^6/uL (4.30-6.10); WHITE BLOOD COUNT 14.6 10^3/uL (4.0-10.0)
[2019-05-12 06:55] LABS: HEMOGLOBIN 9.2 g/dl (13.5-17.5)
[2019-05-12 07:17] LABS: ALBUMIN 2.8 GM/DL (3.2-5.2); ALT/SGPT 26 U/L (12-78); BILIRUBIN,TOTAL 1.2 MG/DL (0.2-1.0); BLOOD UREA NITROGEN 16 MG/DL (7-18); CALCIUM LEVEL 8.4 MG/DL (8.8-10.2); CARBON DIOXIDE LEVEL 26 MEQ/L (21-32); CHLORIDE LEVEL 108 MEQ/L (98-107); CREATININE FOR GFR 1.17 MG/DL (0.70-1.30); GLOMERULAR FILTRATION RATE > 60.0 (>35); GLUCOSE, FASTING 101 MG/DL (70-100); POTASSIUM SERUM 3.9 MEQ/L (3.5-5.1); SODIUM LEVEL 139 MEQ/L (136-145); TOTAL PROTEIN 6.5 GM/DL (6.4-8.2)
--- NOTE | 2019-05-12 08:43 | IPNPDOC ---
Text Note Date of Service The patient was seen on 05/12/19. NOTE Patient seen this morning, looks comfortable. He denies any abdominal pain, shortness breath, chest pain. He denies any ongoing bilateral shoulder pain at this point. I did a laparoscopic cholecystectomy as an interval procedure after he was admitted in the hospital briefly for acute cholecystitis last [place] and improved with IV antibiotics. Intraoperatively he still has good amount of inflammation left over from the past attack and appears chronically thickened and inflamed. There is small amount of subcutaneous hematoma that I recognized that was not expanding with the time he went home. Apparently he fainted and thus had been admitted. While he is here in the hospital he shoulder pain and chest pain and abdominal pain is all now resolved. Certain issues still are unexplained. He is significant gradual drop of his hemoglobin and hematocrit. This was initially presumed to be from the subcutaneous hematoma may be a rectus sheath hematoma. They obtain a CT of the abdomen and pelvis yesterday and there was not much collection to speak of along the abdominal wall. Externally he has a moderate-sized ecchymosis on his right side and a small hematoma along the right midclavicular port site which is just about the same as when he was sent home. There is only small amount of fluid collection around the liver and the right gutter on CT and that much collection within the gallbladder fossa to speak of. So the bleeding, to my mind is not fully explained by this findings. He reported to me that he did have a bowel movement this morning which was black 3 could be that he had some sort of concomitant gastrointestinal bleeding. Right now he appears stable and not showing any signs of any active bleeding. Second issue is the persistent pneumoperitoneum on the imaging studies. Clinically he appears well. His labs looked good except for the leukocytosis wh ich she presented with an is been placed in antibiotics for 2 days now and has improved but remains elevated. I will send him for a HIDA scan to rule out a bile leak. He has some thickened and mildly enlarged cystic duct so it could be leaking around the clips. I will await for the results of the HIDA scan. VS,Andreabone, I+O VS, Fishbone, I+O Laboratory Tests 05/12/19 06:13 Vital Signs Date Time Temp Pulse Resp B/P (MAP) Pulse Ox O2 Delivery O2 Flow Rate FiO2 05/12/19 06:00 99.8 75 18 103/59 (74) 96 Room Air I&O- Last 24 Hours up to 6 AM 05/12/19 06:00 Intake Total 1521 ml Output Total 1175 ml Balance 346 ml ANDREI ARREAGA MD May 12, 2019 08:43
[2019-05-12 09:00] VITALS: BP 128/70
[2019-05-12 09:23] LABS: BILIRUBIN,DIRECT 0.4 MG/DL (0.0-0.2)
[2019-05-12] MEDS: HEPARIN SOD (PORCINE) 5000 UNITS/ML VIAL (J1644 PER 1000UNITS) SQ SCH ×2 (09:43→21:27)
[2019-05-12] MEDS: DOCUSATE SODIUM 100 MG CAP PO SCH ×3 (09:43→21:26)
[2019-05-12] MEDS: SIMETHICONE 80 MG CHEW TAB PO SCH ×4 (09:44→21:27)
[2019-05-12] MEDS: LOSARTAN 50 MG TAB PO SCH (09:44)
[2019-05-12] MEDS: NS 1,000 ML IV SCH (10:06)
--- NOTE | 2019-05-12 11:18 | IPNPDOC ---
Subjective Date Seen The patient was seen on 05/12/19. Subjective Chief Complaint/HPI And is comfortable, feels much better, wants to go home, in no apparent distress General: Denies: ROS Unobtainable, Chills, Night Sweats, Fatigue, Malaise, Normal Appetite, Other Symptoms Constitutional: Denies: Chills, Fever, Malaise, Night Sweats, Weakness, Fatigue, Weight Loss, Lethargy, Other Pulmonary: Denies: Dyspnea, Cough, Pleuritic Chest Pain, Other Symptoms Cardiovascular: Denies: Chest Pain, Palpitations, Orthopnea, Paroxysmal Noc. Dyspnea, Edema, Lt Headedness, Other Symptoms Gastrointestinal: Denies: Nausea, Vomiting, Abdominal Pain, Diarrhea, Constipation, Melena, Hematochezia, Other Symptoms Musculoskeletal: Denies: Neck Pain, Back Pain, Shoulder Pain, Arm Pain, Hand Pain, Leg Pain, Foot Pain, Joint Pain, Muscle Pain, Spasms, Other Symptoms Neurological: Denies: Weakness, Numbness, Incoordination, Change in speech, Confusion, Seizures, Other Symptoms Objective Physical Examination ENT Exam: Positive: Atraumatic, Mucous membr. moist/pink, Pharynx Normal Neck Exam: Positive: Supple Chest Exam: Positive: Clear to auscultation, Normal air movement Heart Exam: Positive: Rate Normal, Regular Rhythm, Normal S1, Normal S2, Murmurs (systolic murmur at RUSB); Negative: Rubs Telemetry: Positive: No significant arrhythmia Abdomen Exam: Positive: Normal bowel sounds, Soft, Other (lap maxime surgical sites with small intact dressings with no surrounding erythema or drainage.); Negative: Tenderness, Hepatospenomegaly Extremity Exam: Positive: Normal pulses Skin Exam: Positive: Nl turgor and temperature Assessment /Plan Problems (1) S/P cholecystectomy Status: Acute Problem Text: Status post laparoscopic cholecystectomy Started on IV antibiotics for leukocytosis, which is progressively decreasing his WBC count is 14.6 today Check CBC in a.m. if WBC within normal range today and the antibiotics can be DC'd Also was found to have a hemoperitoneum from a surgical procedure but H&H is stable. HIDA scan has been ordered by surgery And possibly can be discharged home tomorrow once cleared from surgery (2) Pre-syncope Status: Acute Problem Text: Patient's CT of the head is essentially negative. He has no neurological symptoms MRI of the brain is essentially shows age-related changes, no acute CVA or hemorrhage Carotid Dopplers are essentially within normal limits Could be secondary to beta blockers as patient did had positive noticed on court monitor and beta blockers have been stopped Physical therapy in progress DC home once cleared from surgery (3) Referred abdominal pain Status: Resolved Problem Text: Pain has resolved completely Continue meds when necessary (4) HTN (hypertension) Status: Chronic Problem Text: . Beta blockers were DC'd as per patient's son. He started having frequent falls after that was started. Patient's blood sugars under well control without beta blockers added present time. His blood pressures 112/67 and heart rate of 74 Will monitor clinically, this could be the reason for patient's any presyncopal episode (5) HLD (hyperlipidemia) Status: Chronic Problem Text: Lipid profile in a.m. (6) TYSHAWN (acute kidney injury) Status: Acute Problem Text: Patient is a good by mouth intake now [place] DC IV fluids Oral hydration was recommended again Patient is BUN is 16, creatinine 1.17. Today (7) Leukocytosis Status: Acute Problem Text: Patient. WBC count is progressively going down at 16,000 today Could be acute phase reaction secondary to surgery Patient has been started on Zosyn empirically and will continue the same 2, white count normalizes (8) Acute blood loss anemia Status: Acute Problem Text: Acute blood loss anemia secondary to hematoma secondary to recent surgery Patient received 2 units of PRBC yesterday , Hemoglobin is 9.2 and a HCT 27.6 Surgical follow-up noted Scheduled for HIDA scan today Plan/VTE VTE Prophylaxis Ordered?: Yes VS, I&O, 24H, Andreaflorecita Vital Signs/I&O Vital Signs Date Time Temp Pulse Resp B/P (MAP) Pulse Ox O2 Delivery O2 Flow Rate FiO2 05/12/19 09:00 98.1 80 18 128/70 (89) 97 05/12/19 06:00 Room Air I&O- Last 24 Hours up to 6 AM 05/12/19 06:00 Intake Total 1521 ml Output Total 1175 ml Balance 346 ml Laboratory Data 24H LABS Laboratory Tests 2 05/12/19 06:13: Immature Granulocyte % (Auto) 2.4, Neutrophils (%) (Auto) 57.5, Lymphocytes (%) (Auto) 22.0L, Monocytes (%) (Auto) 9.4H, Eosinophils (%) (Auto) 8.4H, Basophils (%) (Auto) 0.3, Neutrophils # (Auto) 8.4, Lymphocytes # (Auto) 3.2, Monocytes # (Auto) 1.4H, Eosinophils # (Auto) 1.2H, Basophils # (Auto) 0.0, Nucleated Red Blood Cells % (auto) 0.5H, Anion Gap 5L, Glomerular Filtration Rate > 60.0, Calcium Level 8.4L, Total Bilirubin 1.2H, Direct Bilirubin 0.4H, Aspartate Amino Transf (AST/SGOT) 35, Alanine Aminotransferase (ALT/SGPT) 26, Alkaline Phosphatase 76, Total Protein 6.5, Albumin 2.8L, Albumin/Globulin Ratio 0.76L CBC/BMP Laboratory Tests 05/12/19 06:13 CORY GROSS MD May 12, 2019 11:18
--- NOTE | 2019-05-12 13:06 | REP ---
Radionuclide biliary scan: Imaging is performed at 5-minute intervals for 60 minutes after intravenous infusion of mebrofenin radiolabeled with 6.6 mCi of technetium 99m. There is small bowel radiolabeling at 10 minutes that progresses throughout the 60 minutes of imaging. There is hepatic washout. There is no common biliary duct obstruction. The the patient is post recent cholecystectomy. There is no radio tracer extravasation. Impression: There is no radio tracer extravasation in this patient with recent cholecystectomy. There is no common biliary duct obstruction. Electronically Signed by Raffy Howard MD 05/12/2019 12:58 P
[2019-05-12 14:00] VITALS: BP 108/56
[2019-05-12] MEDS: PERCOCET 5MG/325MG TAB PO PRN (17:45)
[2019-05-12] MEDS: RAMELTEON 8 MG TAB (ROZEREM) PO SCH (21:27)
[2019-05-12 22:00] VITALS: BP 112/61
[2019-05-13 06:00] VITALS: BP 119/70
[2019-05-13 06:20] LABS: BASO # 0.1 10^3/uL (0.0-0.2); BASO % 0.5 % (0.0-1.0); EOS # 1.7 10^3/uL (0.0-0.5); HEMOGLOBIN 10.4 g/dl (13.5-17.5); LYMPH # 3.3 10^3/uL (1.5-5.0); LYMPH % 19.3 % (24.0-44.0); MEAN CORPUSCULAR HEMOGLOBIN 30.8 pg (27.0-33.0); MEAN CORPUSCULAR HGB CONC 32.5 g/dl (32.0-36.5); MEAN CORPUSCULAR VOLUME 94.7 fl (80.0-96.0); MONO # 1.4 10^3/uL (0.0-0.8); MONO % 8.4 % (0.0-5.0); NEUTROPHILS % 57.8 % (36.0-66.0); PLATELET COUNT, AUTOMATED 251 10^3/uL (150-450); RED BLOOD COUNT 3.38 10^6/uL (4.30-6.10); WHITE BLOOD COUNT 17.2 10^3/uL (4.0-10.0)
[2019-05-13 06:39] LABS: ALBUMIN 3.2 GM/DL (3.2-5.2); ALT/SGPT 30 U/L (12-78); BILIRUBIN,TOTAL 1.2 MG/DL (0.2-1.0); BLOOD UREA NITROGEN 10 MG/DL (7-18); CALCIUM LEVEL 8.8 MG/DL (8.8-10.2); CARBON DIOXIDE LEVEL 23 MEQ/L (21-32); CHLORIDE LEVEL 107 MEQ/L (98-107); CREATININE FOR GFR 0.95 MG/DL (0.70-1.30); GLOMERULAR FILTRATION RATE > 60.0 (>35); GLUCOSE, FASTING 103 MG/DL (70-100); POTASSIUM SERUM 3.6 MEQ/L (3.5-5.1); SODIUM LEVEL 137 MEQ/L (136-145); TOTAL PROTEIN 7.2 GM/DL (6.4-8.2)
[2019-05-13] MEDS: SIMETHICONE 80 MG CHEW TAB PO SCH (09:35)
[2019-05-13] MEDS: HEPARIN SOD (PORCINE) 5000 UNITS/ML VIAL (J1644 PER 1000UNITS) SQ SCH (09:36)
[2019-05-13 09:39] VITALS: BP 144/84
[2019-05-13] MEDS: LOSARTAN 50 MG TAB PO SCH (09:39)
[2019-05-13] MEDS: DOCUSATE SODIUM 100 MG CAP PO SCH (09:40)
--- NOTE | 2019-05-13 11:17 | DS.PDOC ---
Discharge Summary General Date of Admission May 11, 2019 at 14:40 Date of Discharge 05/13/19 Attending Physician: GRACIE BARGER MD Discharge Summary PROCEDURES PERFORMED DURING STAY: None. ADMITTING DIAGNOSES: 1. Abdominal pain, bleeding. DISCHARGE DIAGNOSES: 1. Abdominal pain, bleeding. COMPLICATIONS/CHIEF COMPLAINT: Neurological Deficit, Transient/Abdominal Pain. HISTORY OF PRESENT ILLNESS: 83-year-old male with past medical history of hypertension, hyperlipidemia and TIA was admitted for abdominal pain. Patient underwent outpatient laparoscopic cholecystectomy prior to admission, throughout hospitalization patient had bleeding, likely surgery related, although GI bleed as a possibility. Patient was given 2 units of packed blood cells total, H&H has been stable over the past 24 hours, patient's in the morning, comfortable, tolerating diet, cleared by physical therapy, without any complaints at this time. Patient does report dark stool over the past 2 days, last BM was yesterday, denies bright red blood per rectum. Patient is currently clinically and hemodynamically stable for discharge and outpatient follow-up. Patient is advised follow-up with armored car messenger in addition to a general surgeon. HOSPITAL COURSE: As above. DISCHARGE MEDICATIONS: Please see below. ALLERGIES: Please see below. PHYSICAL EXAMINATION: VITAL SIGNS: Please see below. GENERAL: No distress HEENT: Normocephalic, atraumatic, moist mucous membranes NECK: Supple CARDIOVASCULAR EXAMINATION: S1, S2, no murmurs RESPIRATORY EXAMINATION: Clear to auscultation, no wheezing ABDOMINAL EXAMINATION: Soft, nontender, nondistended, positive bowel sounds EXTREMITIES: Range of motion intact SKIN: No rash NEUROLOGICAL EXAMINATION: Alert and oriented 3, no focal deficits PSYCHIATRIC EXAMINATION: Calm and cooperative LABORATORY DATA: Please see below. IMAGING: CT abdomen and pelvis showed fluid surrounding the liver, HIDA scan was negative for biliary leak. PROGNOSIS: Fair ACTIVITY: As tolerated. DIET: Cardiac DISCHARGE PLAN: Follow with gastroenterology and general surgery in 1-2 weeks DISPOSITION: Home. DISCHARGE INSTRUCTIONS: 1. As above. DISCHARGE CONDITION: Stable. TIME SPENT ON DISCHARGE: Greater than 34 minutes. Vital Signs/I&Os Vital Signs Date Time Temp Pulse Resp B/P (MAP) Pulse Ox O2 Delivery O2 Flow Rate FiO2 05/13/19 09:39 144/84 05/13/19 06:00 98.5 76 18 99 05/12/19 22:00 Room Air I&O- Last 24 Hours up to 6 AM 1/29/20 06:00 Intake Total 540 ml Output Total 825 ml Balance -285 ml Laboratory Data Labs 24H Laboratory Tests 2 05/13/19 05:35: Immature Granulocyte % (Auto) 4.0H, Neutrophils (%) (Auto) 57.8, Lymphocytes (%) (Auto) 19.3L, Monocytes (%) (Auto) 8.4H, Eosinophils (%) (Auto) 10.0H, Basophils (%) (Auto) 0.5, Neutrophils # (Auto) 10.0H, Lymphocytes # (Auto) 3.3, Monocytes # (Auto) 1.4H, Eosinophils # (Auto) 1.7H, Basophils # (Auto) 0.1, Nucleated Red Blood Cells % (auto) 0.2H, Anion Gap 7L, Glomerular Filtration Rate > 60.0, Calcium Level 8.8, Total Bilirubin 1.2H, Aspartate Amino Transf (AST/SGOT) 36, Alanine Aminotransferase (ALT/SGPT) 30, Alkaline Phosphatase 96, Total Protein 7.2, Albumin 3.2, Albumin/Globulin Ratio 0.80L CBC/BMP Laboratory Tests 05/13/19 05:35 Discharge Medications Scheduled Losartan Potassium (Losartan Potassium) 100 Mg Tab, 100 MG PO DAILY, (Reported) Metoprolol Succinate (Metoprolol Succinate) 25 Mg Tab.er.24h, 25 MG PO DAILY, (Reported) Nortriptyline HCl (Nortriptyline HCl) 10 Mg Capsule, 20 MG PO QHS, (Reported) Pregabalin (Lyrica) 100 Mg Capsule, 100 MG PO TID, (Reported) Scheduled PRN Oxycodone HCl/Acetaminophen (Oxycodone-Acetaminophen 5-325) 1 Each Tablet, 1 TAB PO TID PRN for pain, (Reported) NEW MEDICATION, HAS NOT STARTED Tramadol HCl (Tramadol HCl) 50 Mg Tab, 50 MG PO Q8H PRN for PAIN, (Reported) Allergies Coded Allergies: gabapentin (Verified Allergy, Unknown, 08/29/18) GRACIE BARGER MD May 13, 2019 11:17
[2019-05-13] MEDS ORDERED: ORAJGEL3 MM (11:32)
[2019-05-13] MEDS ORDERED: BENZOCAINE 10% 9GM TUBE (ANBESOL) TOP PRN (12:45)
--- NOTE | 2019-05-13 14:09 | IPNPDOC ---
Text Note Date of Service The patient was seen on 05/13/19. NOTE Patient is seen eating his lunch. He reports some discomfort on swallowing es pecially cold liquids. He feels the liquid gets stuck on his mid epigastric area but eventually able to go through. He denies a nausea. He has had several all movements which he reports is kind of blackish yesterday but has solidified and now is brown colored today. He has been afebrile. His vitals were reviewed. He is afebrile. He is non-tachycardic with heart rates in the 70s. On examination he looks comfortable. [place] palpebral conjunctiva. He looks adequately hydrated Lungs sounds are clear to auscultation bilaterally without wheezing Heart rate and rhythm are regular without murmurs Abdomen is relatively flat, nondistended and no focal tenderness. Over one of the right side port sites there is an area of ecchymosis extending to the flank. About a 2 cm fluctuant area around it suggestive of a small hematoma. He is nontender on the area. No tenderness over the epigastric and right upper quadrant area. Rest of the incisions appear intact without any drainage. No extremity edema. Labs were reviewed. His hemoglobin is 10.4 hematocrit 32.0 which is up from yesterday. He still is leukocytosis at 17.2. Chemistries are normal including his BUN and creatinine which was elevated previously. He is total bilirubin is still mildly elevated at 1.2 which is the same as yesterday. The direct fraction is only 0.4 yesterday. AST and ALT as well as alkaline phosphatase were normal. He had a HIDA scan yesterday that did not demonstrate any bile leakage nor common bile duct obstruction Impression # 1 status post cholecystectomy for chronic cholecystitis HIDA scan yesterday did not show any bile leakage, bile duct injury nor common bile duct obstruction. So I would presume that the pneumoperitoneum is left over from the laparoscopy last Saturday. 2. Anemia, post hemorrhagic. I'm still not convinced that the ecchymosis and hematoma on the right abdominal wall is enough to explain the drop of his hemoglobin down to 6.4 from 13.8 to begin with. Likewise the amount of fluid within the abdominal cavity is also not convincing enough as the source of the bleeding. He has had black stools which could be that he had some sort of GI bleed coincidentally. He is also complaining of some discomfort on swallowing and epigastric area. I told him at some point in an elective basis specially if he continues to have complaints of midepigastric pain and will consider upper endoscopy to evaluate him for ulcers, gastritis, esophagitis. He also has mildly nodular liver which may be the beginning cirrhosis. Us for now his hemoglobin and hematocrit are starting to climb up and he is not symptomatic from this. 3. Leukocytosis. No other obvious focus of infection at this point so distended to watch this and still treating this with antibiotics. 4. From surgical standpoint he is stable for discharge and she is scheduled to follow-up with me next week. VS,Prospere, I+O VS, Prospere, I+O Laboratory Tests 05/13/19 05:35 Vital Signs Date Time Temp Pulse Resp B/P (MAP) Pulse Ox O2 Delivery O2 Flow Rate FiO2 05/13/19 09:39 144/84 05/13/19 06:00 98.5 76 18 99 05/12/19 22:00 Room Air I&O- Last 24 Hours up to 6 AM 05/13/19 06:00 Intake Total 540 ml Output Total 825 ml Balance -285 ml ANDREI ARREAGA MD May 13, 2019 14:09
== END 2019-05-13 14:20 | disposition home or self-care (01) | DRG 920 ==
LOC: EDBD 17:31 → M ED 17:31 → EDSEX 17:31 → M ED INP 17:32 → ENRESERV 22:12 → M MSPAV 22:43 → OBSVTOIN 05-11 14:40
PROVIDERS: ADMIT Internal Medicine; ATTEND Internal Medicine
PROC: 30233N1 Transfusion of Nonautologous Red Blood Cells into Peripheral Vein, Percutaneous Approach (ICD-10-PCS; principal; 2019-05-11)
DX: M96.841 Postprocedural hematoma of a musculoskeletal structure following other procedure (principal); N17.9 Acute kidney failure, unspecified; J98.11 Atelectasis; D62 Acute posthemorrhagic anemia; K92.2 Gastrointestinal hemorrhage, unspecified; R55 Syncope and collapse; I10 Essential (primary) hypertension; E78.5 Hyperlipidemia, unspecified; E86.0 Dehydration; Y83.6 Removal of other organ (partial) (total) as the cause of abnormal reaction of the patient, or of later complication, without mention of misadventure at the time of the procedure; D72.829 Elevated white blood cell count, unspecified; Z79.899 Other long term (current) drug therapy; Z88.8 Allergy status to other drugs, medicaments and biological substances; Z87.442 Personal history of urinary calculi; Z86.73 Personal history of transient ischemic attack (TIA), and cerebral infarction without residual deficits; Z90.49 Acquired absence of other specified parts of digestive tract; Z98.41 Cataract extraction status, right eye; Z98.42 Cataract extraction status, left eye

== ENCOUNTER 2020-02-13 14:07 | Emergency (ER) | payer MEDICARE, OTHER ==
[~2020-02-13] VITALS: Ht 162.6 cm; Wt 66.0 kg
[~2020-02-13 14:07] MED LIST changes: +ORAJGEL3 MM; +OXYC1TAB23 PO
[2020-02-13] MEDS ORDERED: ESOM40CA35 (14:22)
[2020-02-13] MEDS ORDERED: AMOX875T (14:22)
[2020-02-13] MEDS ORDERED: AUGM875T28 PO (14:56)
[2020-02-13 15:06] VITALS: BP 180/100
== END 2020-02-13 15:14 | disposition home or self-care (01) ==
LOC: M ED 14:07
DX: K08.89 Other specified disorders of teeth and supporting structures (principal); K02.9 Dental caries, unspecified; Z79.899 Other long term (current) drug therapy; Z79.2 Long term (current) use of antibiotics; Z88.8 Allergy status to other drugs, medicaments and biological substances

== ENCOUNTER → 2021-06-30 | Outpatient (CLI) | payer MEDICARE, OTHER ==
[~2021-06-30] MED LIST changes: +AMOX875T; +AUGM875T28 PO; +ESOM40CA35; +LOSA100T45 PO; -LOSA100T50 PO
[2021-06-30 13:39] LABS: BASO % 0.4 % (0.0-1.0); EOS # 0.5 10^3/uL (0.0-0.5); EOS % 4.7 % (0.0-3.0); HEMOGLOBIN 10.9 g/dl (13.5-17.5); LYMPH # 1.2 10^3/uL (1.5-5.0); LYMPH % 12.3 % (24.0-44.0); MEAN CORPUSCULAR HEMOGLOBIN 36.1 pg (27.0-33.0); MEAN CORPUSCULAR VOLUME 109.3 fl (80.0-96.0); MONO # 0.9 10^3/uL (0.0-0.8); MONO % 8.7 % (2.0-8.0); NEUTROPHILS # 7.3 10^3/uL (1.5-8.5); NEUTROPHILS % 73.3 % (36.0-66.0); PLATELET COUNT, AUTOMATED 330 10^3/uL (150-450); RED BLOOD COUNT 3.02 10^6/uL (4.30-6.10); WHITE BLOOD COUNT 9.9 10^3/uL (4.0-10.0)
[2021-06-30 14:06] LABS: ALBUMIN 3.5 GM/DL (3.2-5.2); ALT/SGPT 89 U/L (12-78); BILIRUBIN,TOTAL 1.2 MG/DL (0.2-1.0); BLOOD UREA NITROGEN 17 MG/DL (7-18); CALCIUM LEVEL 9.7 MG/DL (8.8-10.2); CARBON DIOXIDE LEVEL 27 MEQ/L (21-32); CHLORIDE LEVEL 104 MEQ/L (98-107); CHOLESTEROL LEVEL 173 MG/DL (<200); CHOLESTEROL RISK RATIO 4.325 (<5); CREATININE FOR GFR 1.05 MG/DL (0.70-1.30); GLOMERULAR FILTRATION RATE > 60.0 (>35); GLUCOSE, FASTING 81 MG/DL (70-100); HDL CHOLESTEROL 40 MG/DL (>40); LDL CHOLESTEROL 112 MG/DL (<100); NON-HDL-C 133 MG/DL; POTASSIUM SERUM 4.7 MEQ/L (3.5-5.1); SODIUM LEVEL 137 MEQ/L (136-145); TOTAL PROTEIN 8.2 GM/DL (6.4-8.2); TRIGLYCERIDES LEVEL 106 MG/DL (<150)
== END ==
LOC: M PLALAB 10:45
PROVIDERS: ATTEND Physician Assistant
DX: I10 Essential (primary) hypertension (principal)

== ENCOUNTER 2021-07-30 13:24 | Observation (INO) | payer MEDICARE, OTHER ==
[~2021-07-30] VITALS: Ht 162.6 cm; Wt 61.0 kg
[2021-07-30 14:39] LABS: BASO % 0.2 % (0.0-1.0); EOS # 0.6 10^3/uL (0.0-0.5); EOS % 6.2 % (0.0-3.0); HEMATOCRIT 34.4 % (42.0-52.0); HEMOGLOBIN 11.1 g/dl (13.5-17.5); LYMPH # 1.4 10^3/uL (1.5-5.0); LYMPH % 14.6 % (24.0-44.0); MEAN CORPUSCULAR HEMOGLOBIN 37.1 pg (27.0-33.0); MEAN CORPUSCULAR HGB CONC 32.3 g/dl (32.0-36.5); MONO % 18.9 % (2.0-8.0); NEUTROPHILS # 5.8 10^3/uL (1.5-8.5); NEUTROPHILS % 59.8 % (36.0-66.0); PLATELET COUNT, AUTOMATED 220 10^3/uL (150-450); RED BLOOD COUNT 2.99 10^6/uL (4.30-6.10); WHITE BLOOD COUNT 9.7 10^3/uL (4.0-10.0)
[2021-07-30 14:50] LABS: INR 1.01; PROTHROMBIN TIME 13.7 SECONDS (12.7-14.5)
[2021-07-30 14:51] LABS: PARTIAL THROMBOPLASTIN TIME 33.7 SECONDS (25.9-37.0)
[2021-07-30 15:16] LABS: MEAN CORPUSCULAR VOLUME 115.1 fl (80.0-96.0); MONO # 1.8 10^3/uL (0.0-0.8)
[2021-07-30 15:18] LABS: ANISOCYTOSIS 2+
[2021-07-30 15:21] LABS: PLATELET ESTIMATE NORMAL (NORMAL)
[2021-07-30] MEDS ORDERED: METH2.5T48 PO (16:14)
[2021-07-30] MEDS ORDERED: LORA-674 PO (16:14)
[2021-07-30] MEDS ORDERED: RIVA1CAP3 PO (16:14)
[2021-07-30] MEDS ORDERED: FOLI1TAB11 PO (16:14)
[2021-07-30] MEDS ORDERED: VALS1TAB67 PO (16:14)
[2021-07-30 16:42] LABS: BLOOD UREA NITROGEN 8 MG/DL (7-18); CALCIUM LEVEL 8.5 MG/DL (8.8-10.2); CARBON DIOXIDE LEVEL 24 MEQ/L (21-32); CHLORIDE LEVEL 109 MEQ/L (98-107); CREATININE FOR GFR 0.77 MG/DL (0.70-1.30); GLOMERULAR FILTRATION RATE > 60.0 (>35); GLUCOSE, FASTING 77 MG/DL (70-100); POTASSIUM SERUM 4.5 MEQ/L (3.5-5.1); SODIUM LEVEL 139 MEQ/L (136-145)
[2021-07-30] MEDS ORDERED: ISOVUE-370 76% 100ML VIAL As Ordered ONE (16:53)
[2021-07-30 18:09] LABS: CK-MB VALUE MASS < 1.0 NG/ML (<3.6); CPK CREATINE PHOSPHOKINASE 32 U/L (39-308); MB/CK RELATIVE INDEX 3.12 (< OR =4)
[2021-07-30 18:13] LABS: RSV AMPLIFICATION NEGATIVE (NEGATIVE)
[2021-07-30] MEDS ORDERED: HOME MED LIST COMPLETE! XX SCH (18:25)
[2021-07-30 21:47] LABS: CK-MB VALUE MASS < 1.0 NG/ML (<3.6); CPK CREATINE PHOSPHOKINASE 29 U/L (39-308); MB/CK RELATIVE INDEX 3.45 (< OR =4)
[2021-07-30] MEDS ORDERED: HYDROMORPHONE HCL 0.5 MG/ 0.5 ML SYRINGE (J1170 PER 1) IV PRN (22:45)
[2021-07-30] MEDS: SUCRALFATE SUSP 1GM/10ML UD PO SCH (22:54)
[2021-07-30] MEDS: PANTOPRAZOLE 40MG VIAL IV SCH (22:55)
[2021-07-31 04:00] VITALS: BP 114/57
[2021-07-31 06:25] LABS: BLOOD UREA NITROGEN 9 MG/DL (7-18); CALCIUM LEVEL 7.9 MG/DL (8.8-10.2); CARBON DIOXIDE LEVEL 28 MEQ/L (21-32); CHLORIDE LEVEL 109 MEQ/L (98-107); CREATININE FOR GFR 0.79 MG/DL (0.70-1.30); GLOMERULAR FILTRATION RATE > 60.0 (>35); GLUCOSE, FASTING 81 MG/DL (70-100); MAGNESIUM LEVEL 1.9 MG/DL (1.8-2.4); POTASSIUM SERUM 3.8 MEQ/L (3.5-5.1); SODIUM LEVEL 140 MEQ/L (136-145)
[2021-07-31 08:30] VITALS: BP 128/77
[2021-07-31] MEDS: SUCRALFATE SUSP 1GM/10ML UD PO SCH (08:46)
[2021-07-31] MEDS: PANTOPRAZOLE 40MG VIAL IV SCH (08:46)
[2021-07-31 08:47] VITALS: BP 114/57
[2021-07-31] MEDS ORDERED: VALSARTAN 80 MG TAB (DIOVAN) PO SCH (09:00)
[2021-07-31] MEDS ORDERED: SERTRALINE HCL 25 MG TABLET PO SCH (09:00)
[2021-07-31] MEDS ORDERED: SUCR1TA PO (11:18)
[2021-07-31] MEDS ORDERED: PROT1TAB2 PO (11:18)
[2021-07-31 13:10] VITALS: BP 117/73
[2021-07-31] MEDS ORDERED: SERT25TA85 PO (13:21)
== END 2021-07-31 15:17 | disposition home or self-care (01) ==
LOC: M ED 13:24 → M ED INP 22:13 → ENRESERV 07-31 01:14 → M PCU 07-31 01:51
PROVIDERS: ADMIT Internal Medicine; ATTEND Internal Medicine
DX: R07.9 Chest pain, unspecified (principal); R13.10 Dysphagia, unspecified; D72.10 Eosinophilia, unspecified; K21.9 Gastro-esophageal reflux disease without esophagitis; K44.9 Diaphragmatic hernia without obstruction or gangrene; F32.A Depression, unspecified; R63.0 Anorexia; F33.9 Major depressive disorder, recurrent, unspecified; F03.90 Unspecified dementia, unspecified severity, without behavioral disturbance, psychotic disturbance, mood disturbance, and anxiety; J84.9 Interstitial pulmonary disease, unspecified; L40.9 Psoriasis, unspecified; I10 Essential (primary) hypertension; E78.5 Hyperlipidemia, unspecified; Z86.73 Personal history of transient ischemic attack (TIA), and cerebral infarction without residual deficits; Z66 Do not resuscitate; Z79.899 Other long term (current) drug therapy; Z88.8 Allergy status to other drugs, medicaments and biological substances
CPT/HCPCS: 36415; 71046; 74177; 80048; 82550; 82553; 83735; 84484; 85025; 85610; 85730; 87631; 93005; 93041; 94760; 96374; 96376; 99285; G0378; Q9967

== ENCOUNTER → 2022-02-14 | Outpatient (CLI) | payer MEDICARE, OTHER ==
[~2022-02-14] MED LIST changes: +FOLI1TAB11 PO; +LORA-674 PO; +METH2.5T48 PO; +PROT1TAB2 PO; +RIVA1CAP3 PO; +SERT25TA85 PO; +SUCR1TA PO; +VALS1TAB67 PO
[2022-02-14 15:27] LABS: HEMATOCRIT 46.3 % (42.0-52.0); HEMOGLOBIN 14.5 g/dl (13.5-17.5); MEAN CORPUSCULAR HEMOGLOBIN 30.6 pg (27.0-33.0); MEAN CORPUSCULAR HGB CONC 31.3 g/dl (32.0-36.5); MEAN CORPUSCULAR VOLUME 97.7 fl (80.0-96.0); PLATELET COUNT, AUTOMATED 162 10^3/uL (150-450); RED BLOOD COUNT 4.74 10^6/uL (4.30-6.10); WHITE BLOOD COUNT 7.2 10^3/uL (4.0-10.0)
[2022-02-14 16:21] LABS: ALBUMIN 3.2 GM/DL (3.2-5.2); ALT/SGPT 30 U/L (12-78); BILIRUBIN,TOTAL 0.4 MG/DL (0.2-1.0); BLOOD UREA NITROGEN 11 MG/DL (7-18); CALCIUM LEVEL 9.3 MG/DL (8.8-10.2); CARBON DIOXIDE LEVEL 31 MEQ/L (21-32); CHLORIDE LEVEL 102 MEQ/L (98-107); CREATININE FOR GFR 1.11 MG/DL (0.70-1.30); GLOMERULAR FILTRATION RATE > 60.0 (>35); GLUCOSE, FASTING 90 MG/DL (70-100); POTASSIUM SERUM 4.7 MEQ/L (3.5-5.1); SODIUM LEVEL 136 MEQ/L (136-145); TOTAL PROTEIN 8.9 GM/DL (6.4-8.2)
[2022-02-14 17:41] LABS: HEPATITIS B CORE ANTIBODY IGM NEGATIVE (NEGATIVE); HEPATITIS B SURFACE ANTIGEN NEGATIVE (NEGATIVE); HEPATITIS C VIRUS ABY INDEX 0.1 INDEX (<0.8); HIV 1&2 SCREEN CENTAUR NEGATIVE (NEGATIVE)
== END ==
LOC: M PLALAB 14:13
PROVIDERS: ATTEND Physician Assistant
DX: L40.9 Psoriasis, unspecified (principal)

== ENCOUNTER → 2022-04-25 | Outpatient (CLI) | payer MEDICARE, OTHER ==
[2022-04-25 13:36] LABS: HEMATOCRIT 48.8 % (42.0-52.0); HEMOGLOBIN 15.5 g/dl (13.5-17.5); MEAN CORPUSCULAR HEMOGLOBIN 30.8 pg (27.0-33.0); MEAN CORPUSCULAR HGB CONC 31.8 g/dl (32.0-36.5); PLATELET COUNT, AUTOMATED 144 10^3/uL (150-450); RED BLOOD COUNT 5.03 10^6/uL (4.30-6.10); WHITE BLOOD COUNT 7.8 10^3/uL (4.0-10.0)
[2022-04-25 14:07] LABS: ALBUMIN 3.7 G/DL (3.2-5.2); ALKALINE PHOSPHATASE 161 U/L (46-116); ALT/SGPT 29 U/L (7.0-40); AST/SGOT 48 U/L (<34); BILIRUBIN,TOTAL 0.9 MG/DL (0.3-1.2); BLOOD UREA NITROGEN 18 MG/DL (9-23); CALCIUM LEVEL 9.5 MG/DL (8.3-10.6); CARBON DIOXIDE LEVEL 28 MMOL/L (20-31); CHLORIDE LEVEL 100 MMOL/L (98-107); CHOLESTEROL LEVEL 178 MG/DL (<200); CHOLESTEROL RISK RATIO 4.26 (<5); CREATININE FOR GFR 1.04 MG/DL (0.70-1.30); GLOMERULAR FILTRATION RATE > 60.0 (>35); GLUCOSE, FASTING 82 MG/DL (74-106); HDL CHOLESTEROL 41.7 MG/DL (>40); LDL CHOLESTEROL 116.9 MG/DL (<100); NON-HDL-C 136 MG/DL; POTASSIUM SERUM 4.6 MMOL/L (3.5-5.1); SODIUM LEVEL 136 MMOL/L (136-145); TOTAL PROTEIN 8.8 G/DL (5.7-8.2); TRIGLYCERIDES LEVEL 97 MG/DL (<150)
[2022-04-25 14:09] LABS: FOLATE 20.97 NG/ML (>5.4)
[2022-04-26 23:09] LABS: PSA TOTAL 0.6 ng/mL (0.0-4.0)
== END ==
LOC: M PLALAB 11:11
PROVIDERS: ATTEND Physician Assistant
DX: E78.5 Hyperlipidemia, unspecified (principal); M25.511 Pain in right shoulder; I10 Essential (primary) hypertension; L40.9 Psoriasis, unspecified; Z12.5 Encounter for screening for malignant neoplasm of prostate

== ENCOUNTER 2024-05-11 18:37 | Emergency (ER) | payer MEDICARE, OTHER ==
[~2024-05-11] VITALS: Ht 162.6 cm; Wt 59.7 kg
[~2024-05-11 18:37] MED LIST changes: +EZET10TA58; +LORA-1041 PO; -LORA-674 PO; -LOSA100T45 PO; +LOSA100T46 PO; -ZETI10TA16
[2024-05-11 18:39] VITALS: TEMP 97.6
[2024-05-11 19:23] LABS: BASO % 0.3 % (0.0-1.0); EOS # 0.5 10^3/uL (0.0-0.5); EOS % 5.7 % (0.0-3.0); HEMATOCRIT 43.6 % (42.0-52.0); HEMOGLOBIN 14.4 g/dl (13.5-17.5); LYMPH # 2.8 10^3/uL (1.5-5.0); LYMPH % 31.2 % (24.0-44.0); MEAN CORPUSCULAR HEMOGLOBIN 29.9 pg (27.0-33.0); MEAN CORPUSCULAR VOLUME 90.5 fl (80.0-96.0); MONO # 1.2 10^3/uL (0.0-0.8); NEUTROPHILS # 4.5 10^3/uL (1.5-8.5); NEUTROPHILS % 49.4 % (36.0-66.0); PLATELET COUNT, AUTOMATED 202 10^3/uL (150-450); RED BLOOD COUNT 4.82 10^6/uL (4.30-6.10)
[2024-05-11 19:50] LABS: ALKALINE PHOSPHATASE 207 U/L (40-129); ALT/SGPT 28 U/L (7.0-40); AST/SGOT 35 U/L (<34); BILIRUBIN,DIRECT 0.2 MG/DL (<0.4); BILIRUBIN,TOTAL 0.6 MG/DL (0.3-1.2); BLOOD UREA NITROGEN 18 MG/DL (9-23); CALCIUM LEVEL 8.9 MG/DL (8.3-10.6); CARBON DIOXIDE LEVEL 25 MMOL/L (20-31); CHLORIDE LEVEL 104 MMOL/L (98-107); CREATININE FOR GFR 0.98 MG/DL (0.70-1.30); GLOMERULAR FILTRATION RATE > 60.0 (>35); GLUCOSE, FASTING 94 MG/DL (74-106); POTASSIUM SERUM 3.9 MMOL/L (3.5-5.1); SODIUM LEVEL 138 MMOL/L (136-145); TOTAL PROTEIN 8.5 G/DL (5.7-8.2)
[2024-05-11 19:56] LABS: CPK CREATINE PHOSPHOKINASE 39 U/L (46-171)
[2024-05-11 20:07] LABS: INR 0.96; PARTIAL THROMBOPLASTIN TIME 32.1 SECONDS (24.8-34.2); PROTHROMBIN TIME 13.1 SECONDS (12.5-14.5)
[2024-05-11 20:08] LABS: CK-MB VALUE MASS 1.2 NG/ML (<3.6); MB/CK RELATIVE INDEX 3.07 (< OR =4)
[2024-05-11 20:12] LABS: THYROID STIMULATING HORMONE 6.735 uIU/ML (0.55-4.78)
[2024-05-11] MEDS ORDERED: BENZ200C70 PO (23:02)
[2024-05-11 23:16] VITALS: BP 153/89; O2SAT 97
[2024-05-11] MEDS: BENZONATATE 100MG CAPSULE PO ONE (23:24)
== END 2024-05-11 23:35 | disposition home or self-care (01) ==
LOC: M ED 18:37
DX: R05.3 Chronic cough (principal); R19.7 Diarrhea, unspecified; K21.9 Gastro-esophageal reflux disease without esophagitis; Z88.8 Allergy status to other drugs, medicaments and biological substances; Z79.899 Other long term (current) drug therapy

== ENCOUNTER 2024-06-10 16:31 | Emergency (ER) | payer MEDICARE, OTHER ==
[~2024-06-10] VITALS: Ht 165.1 cm; Wt 69.3 kg
[~2024-06-10 16:31] MED LIST changes: +BENZ200C70 PO
[2024-06-10 16:35] VITALS: TEMP 97.9
[2024-06-10 17:22] LABS: BASO # 0.1 10^3/uL (0.0-0.2); BASO % 0.6 % (0.0-1.0); EOS # 0.3 10^3/uL (0.0-0.5); EOS % 2.9 % (0.0-3.0); HEMATOCRIT 49.1 % (42.0-52.0); HEMOGLOBIN 15.5 g/dl (13.5-17.5); LYMPH # 2.7 10^3/uL (1.5-5.0); MEAN CORPUSCULAR HEMOGLOBIN 28.7 pg (27.0-33.0); MEAN CORPUSCULAR HGB CONC 31.6 g/dl (32.0-36.5); MEAN CORPUSCULAR VOLUME 90.8 fl (80.0-96.0); MONO # 1.5 10^3/uL (0.0-0.8); MONO % 14.7 % (2.0-8.0); NEUTROPHILS # 5.7 10^3/uL (1.5-8.5); NEUTROPHILS % 55.6 % (36.0-66.0); PLATELET COUNT, AUTOMATED 200 10^3/uL (150-450); RED BLOOD COUNT 5.41 10^6/uL (4.30-6.10); WHITE BLOOD COUNT 10.2 10^3/uL (4.0-10.0)
[2024-06-10 18:03] LABS: ALBUMIN 3.2 G/DL (3.2-5.2); ALKALINE PHOSPHATASE 248 U/L (40-129); ALT/SGPT 24 U/L (7.0-40); AST/SGOT 43 U/L (<34); BILIRUBIN,DIRECT 0.2 MG/DL (<0.4); BILIRUBIN,TOTAL 0.5 MG/DL (0.3-1.2); BLOOD UREA NITROGEN 16 MG/DL (9-23); CARBON DIOXIDE LEVEL 23 MMOL/L (20-31); CHLORIDE LEVEL 102 MMOL/L (98-107); CK-MB VALUE MASS < 1.0 NG/ML (<3.6); GLOMERULAR FILTRATION RATE > 60.0 (>35); GLUCOSE, FASTING 84 MG/DL (74-106); POTASSIUM SERUM 4.1 MMOL/L (3.5-5.1); SODIUM LEVEL 136 MMOL/L (136-145); TOTAL PROTEIN 9.4 G/DL (5.7-8.2)
[2024-06-10 18:04] LABS: CPK CREATINE PHOSPHOKINASE 67 U/L (46-171); MB/CK RELATIVE INDEX 1.49 (< OR =4)
[2024-06-10 23:01] VITALS: O2SAT 90
[2024-06-10 23:31] VITALS: BP 159/92; O2SAT 97
== END 2024-06-10 23:48 | disposition home or self-care (01) ==
LOC: M ED 16:31
DX: J84.10 Pulmonary fibrosis, unspecified (principal); R19.7 Diarrhea, unspecified; I10 Essential (primary) hypertension; Z88.8 Allergy status to other drugs, medicaments and biological substances; Z79.899 Other long term (current) drug therapy

== ENCOUNTER 2024-08-18 18:34 | Inpatient (IN) | payer MEDICARE ==
[~2024-08-18] VITALS: Ht 160 cm; Wt 58.1 kg
[~2024-08-18 18:34] MED LIST changes: +PREG-35 PO; -PREG100CA PO
[2024-08-18] MEDS: NS (Normal Saline) 0.9% 1,000 ML IV ONE ×2 (19:53→21:41)
[2024-08-18 19:55] LABS: VENOUS HCO3 24.3 MMOL/L (23.0-27.0); VENOUS O2 SATURATION 78.1 % (60.0-80.0); VENOUS PARTIAL PRESSURE CO2 42.4 mmHg (38.0-50.0); VENOUS PARTIAL PRESSURE O2 44.3 mmHg (30.0-50.0); VENOUS PH 7.376 UNITS (7.330-7.430); VENOUS STANDARD HCO3 23.1 MMOL/L; VENOUS TOTAL CO2 25.6 MMOL/L (24.0-28.0)
[2024-08-18 20:08] LABS: BASO % 0.2 % (0.0-1.0); EOS % 0.1 % (0.0-3.0); HEMATOCRIT 49.7 % (42.0-52.0); HEMOGLOBIN 16.1 g/dl (13.5-17.5); LYMPH % 4.9 % (24.0-44.0); MEAN CORPUSCULAR HEMOGLOBIN 29.1 pg (27.0-33.0); MEAN CORPUSCULAR HGB CONC 32.4 g/dl (32.0-36.5); MEAN CORPUSCULAR VOLUME 89.9 fl (80.0-96.0); MONO # 1.2 10^3/uL (0.0-0.8); MONO % 5.8 % (2.0-8.0); NEUTROPHILS # 18.6 10^3/uL (1.5-8.5); NEUTROPHILS % 88.6 % (36.0-66.0); PLATELET COUNT, AUTOMATED 162 10^3/uL (150-450); RED BLOOD COUNT 5.53 10^6/uL (4.30-6.10)
[2024-08-18 20:22] LABS: INR 0.99; PARTIAL THROMBOPLASTIN TIME 27.9 SECONDS (24.8-34.2); PROTHROMBIN TIME 13.4 SECONDS (12.5-14.5)
[2024-08-18 20:31] LABS: AMYLASE 49 U/L (30-118)
[2024-08-18 20:32] LABS: ALBUMIN 3.2 G/DL (3.2-5.2); ALKALINE PHOSPHATASE 214 U/L (40-129); ALT/SGPT 34 U/L (7.0-40); AST/SGOT 44 U/L (<34); BILIRUBIN,DIRECT 0.2 MG/DL (<0.4); BILIRUBIN,TOTAL 0.5 MG/DL (0.3-1.2); BLOOD UREA NITROGEN 32 MG/DL (9-23); CALCIUM LEVEL 9.4 MG/DL (8.3-10.6); CARBON DIOXIDE LEVEL 24 MMOL/L (20-31); CHLORIDE LEVEL 103 MMOL/L (98-107); CREATININE FOR GFR 1.68 MG/DL (0.70-1.30); GLOMERULAR FILTRATION RATE 38.8 (>35); GLUCOSE, FASTING 178 MG/DL (74-106); POTASSIUM SERUM 4.5 MMOL/L (3.5-5.1); SODIUM LEVEL 138 MMOL/L (136-145); TOTAL PROTEIN 8.6 G/DL (5.7-8.2)
[2024-08-18 20:44] LABS: CK-MB VALUE MASS < 1.0 NG/ML (<3.6)
[2024-08-18 20:51] LABS: CPK CREATINE PHOSPHOKINASE 74 U/L (46-171); MB/CK RELATIVE INDEX 1.35 (< OR =4)
[2024-08-18] MEDS: CEFEPIME HCL 2 GM in DEXTROSE 5% (D5W) ADV/MINI-BAG 50 ML IV ONE (21:41)
[2024-08-18 21:50] LABS: KETONE, URINE AUTO RFX NEGATIVE (NEGATIVE); LEUKOCYTE ESTERASE UR AUTO RFX NEGATIVE (NEGATIVE); MUCUS, URINE RFX SMALL (NEGATIVE); NITRITE, URINE AUTO RFX NEGATIVE (NEGATIVE); RBC, URINE AUTO RFX 100 /HPF (0-3); SQUAM EPITHELIAL CELL UR AURFX 1 /HPF (0-6); WBC, URINE AUTO RFX 17 /HPF (0-3)
[2024-08-18 22:18] LABS: CK-MB VALUE MASS 1.7 NG/ML (<3.6); MB/CK RELATIVE INDEX 0.56 (< OR =4)
[2024-08-18] MEDS ORDERED: ALBU8.5H INH (23:13)
[2024-08-18] MEDS ORDERED: OMEP40CA5 PO (23:13)
[2024-08-18] MEDS ORDERED: CETI-24 PO (23:13)
[2024-08-18] MEDS ORDERED: HOME MED LIST COMPLETE! XX SCH (23:15)
[2024-08-19] VITALS (8 sets, daily range): BP systolic 119–149; BP diastolic 62–90; PULSE 95; TEMP 97.8–100.2; O2SAT 95–99
[2024-08-19] MEDS ORDERED: ALBUTEROL 90 MCG/ACT 8GM HFA INHALER INH PRN (01:40)
[2024-08-19] MEDS ORDERED: VANCOMYCIN HCL 1,000 MG, VIAL MATE ADAPTER 1 EACH in NS 250 ML IV SCH (01:50)
[2024-08-19] MEDS: VANCOMYCIN HCL 1,000 MG, VIAL MATE ADAPTER 1 EACH in NS 250 ML IV ONE (02:47)
[2024-08-19] MEDS: NS (Normal Saline) 0.9% 1,000 ML IV SCH (02:47)
[2024-08-19] MEDS: PIPERACILLIN/TAZOBACTAM SOD 3.375 GM in DEXTROSE 5% (D5W) ADV/MINI-BAG 50 ML IV SCH (04:08)
[2024-08-19] MEDS: ACETAMINOPHEN *IV* 1,000 MG in IV 1 EA IV PRN (05:35)
[2024-08-19 06:43] LABS: CALCIUM LEVEL 8.2 MG/DL (8.3-10.6); CREATININE FOR GFR 1.25 MG/DL (0.70-1.30); GLOMERULAR FILTRATION RATE 55.4 (>35); MAGNESIUM LEVEL 1.9 MG/DL (1.8-2.4)
[2024-08-19 07:13] LABS: BASO % 0.1 % (0.0-1.0); EOS % 0.1 % (0.0-3.0); HEMATOCRIT 41.9 % (42.0-52.0); LYMPH # 1.6 10^3/uL (1.5-5.0); LYMPH % 9.5 % (24.0-44.0); MEAN CORPUSCULAR HEMOGLOBIN 29.1 pg (27.0-33.0); MEAN CORPUSCULAR HGB CONC 31.5 g/dl (32.0-36.5); MEAN CORPUSCULAR VOLUME 92.3 fl (80.0-96.0); MONO # 1.4 10^3/uL (0.0-0.8); MONO % 8.4 % (2.0-8.0); NEUTROPHILS # 13.5 10^3/uL (1.5-8.5); NEUTROPHILS % 81.5 % (36.0-66.0); PLATELET COUNT, AUTOMATED 131 10^3/uL (150-450); RED BLOOD COUNT 4.54 10^6/uL (4.30-6.10); WHITE BLOOD COUNT 16.6 10^3/uL (4.0-10.0)
[2024-08-19 07:23] LABS: HEMOGLOBIN 13.2 g/dl (13.5-17.5)
[2024-08-19] MEDS: CETIRIZINE (ZyrTEC) 10 MG TAB PO SCH (07:31)
[2024-08-19] MEDS: PANTOPRAZOLE 40MG VIAL IV SCH (09:11)
[2024-08-19] MEDS: HEPARIN SOD (PORCINE) 5000UNITS/ML 1ML VIAL/SYRINGE SC SCH (09:17)
[2024-08-19] MEDS: AZITHROMYCIN INJ 500 MG, VIAL MATE ADAPTER 1 EACH in NS 250 ML IV ONE (11:27)
[2024-08-19] MEDS: CIPROFLOXACIN 400 MG in IV 1 EA IV SCH (12:45)
[2024-08-19] MEDS ORDERED: VANCOMYCIN HCL 750 MG, VIAL MATE ADAPTER 1 EACH in NS 250 ML IV SCH (18:00)
[2024-08-20 00:22] VITALS: BP 163/94; TEMP 98.2; O2SAT 93
[2024-08-20 03:25] VITALS: BP 159/79; TEMP 99.6
[2024-08-20 04:00] VITALS: BP 159/79; TEMP 99.6; O2SAT 93
[2024-08-20] MEDS: ACETAMINOPHEN *IV* 1,000 MG in IV 1 EA IV ONE (04:09)
[2024-08-20 06:04] LABS: BASO % 0.2 % (0.0-1.0); EOS # 0.3 10^3/uL (0.0-0.5); HEMATOCRIT 43.3 % (42.0-52.0); HEMOGLOBIN 13.8 g/dl (13.5-17.5); LYMPH # 1.2 10^3/uL (1.5-5.0); LYMPH % 13.6 % (24.0-44.0); MEAN CORPUSCULAR HEMOGLOBIN 28.6 pg (27.0-33.0); MEAN CORPUSCULAR HGB CONC 31.9 g/dl (32.0-36.5); MEAN CORPUSCULAR VOLUME 89.8 fl (80.0-96.0); MONO % 11.2 % (2.0-8.0); NEUTROPHILS # 6.5 10^3/uL (1.5-8.5); NEUTROPHILS % 71.7 % (36.0-66.0); PLATELET COUNT, AUTOMATED 125 10^3/uL (150-450); RED BLOOD COUNT 4.82 10^6/uL (4.30-6.10); WHITE BLOOD COUNT 9.1 10^3/uL (4.0-10.0)
[2024-08-20 06:27] LABS: CREATININE FOR GFR 0.97 MG/DL (0.70-1.30); GLOMERULAR FILTRATION RATE 75.1 (>35); MAGNESIUM LEVEL 1.7 MG/DL (1.8-2.4); POTASSIUM SERUM 3.9 MMOL/L (3.5-5.1)
[2024-08-20 07:39] VITALS: BP 160/72; TEMP 99.5; O2SAT 93
[2024-08-20] MEDS: amLODIPine 5 MG TAB PO ONE (09:54)
[2024-08-20] MEDS: MAG SULF 1GM/100ML (MAG RUN) 1 GM in IV 1 EA IV ONE (09:54)
[2024-08-20] MEDS: AZITHROMYCIN 250MG TABLET PO SCH (11:14)
[2024-08-20] MEDS: CIPROFLOXACIN 500MG TABLET PO SCH (11:14)
[2024-08-20 12:06] VITALS: BP 108/76; TEMP 99.1; O2SAT 94
[2024-08-20] MEDS ORDERED: CIPR750T2 PO (13:16)
[2024-08-20] MEDS ORDERED: NORV5TAB PO (13:17)
[2024-08-21] MEDS ORDERED: amLODIPine 5 MG TAB PO SCH (09:00)
== END 2024-08-20 15:23 | disposition home or self-care (01) | DRG 871 ==
LOC: M ED 18:34 → EDBD 18:34 → M ED INP 23:25 → M PCU 08-19 01:05
PROVIDERS: ADMIT Family Medicine; ATTEND Internal Medicine
PROC: B246ZZZ Ultrasonography of Right and Left Heart (ICD-10-PCS; principal; 2024-08-19)
DX: A41.9 Sepsis, unspecified organism (principal); G93.41 Metabolic encephalopathy; I24.89 Other forms of acute ischemic heart disease; N17.9 Acute kidney failure, unspecified; N39.0 Urinary tract infection, site not specified; A04.5 Campylobacter enteritis; A04.6 Enteritis due to Yersinia enterocolitica; E78.5 Hyperlipidemia, unspecified; I10 Essential (primary) hypertension; J44.9 Chronic obstructive pulmonary disease, unspecified; J84.10 Pulmonary fibrosis, unspecified; G47.30 Sleep apnea, unspecified; K21.9 Gastro-esophageal reflux disease without esophagitis; F03.90 Unspecified dementia, unspecified severity, without behavioral disturbance, psychotic disturbance, mood disturbance, and anxiety; R53.81 Other malaise; F32.A Depression, unspecified; G89.29 Other chronic pain; D64.9 Anemia, unspecified; Z66 Do not resuscitate; Z90.49 Acquired absence of other specified parts of digestive tract; Z98.41 Cataract extraction status, right eye; Z86.73 Personal history of transient ischemic attack (TIA), and cerebral infarction without residual deficits; Z98.42 Cataract extraction status, left eye; Z79.899 Other long term (current) drug therapy; Z88.8 Allergy status to other drugs, medicaments and biological substances